=== PATIENT | male | born 1955 | race American Indian/Alaskan Native ===

== ENCOUNTER 2019-12-08 17:47 | Observation (INO) | payer MEDICARE ==
[2019-12-08] MEDS ORDERED: FAMOTIDINE 20 MG/2 ML INJ IV ONE (18:17)
[2019-12-08] MEDS ORDERED: PANTOPRAZOLE 40 MG INJ IV ONE (18:17)
[2019-12-08] MEDS ORDERED: ONDANSETRON 4 MG/2 ML INJ IV ONE (18:17)
[2019-12-08] MEDS ORDERED: SODIUM CHLORIDE 0.9% 1000 ML 1,000 ML IV ONE (18:17)
[2019-12-08 18:43] LABS: Basophils # (Auto) 0.1 K/mm3 (0.0-0.1); Basophils % (Auto) 0.5 % (0.0-1.8); Eosinophils % (Auto) 0.2 % (0.0-4.3); Hematocrit 33.4 % (35.5-45.6); Hemoglobin 10.3 gm/dl (11.8-15.2); Lymphocytes # (Auto) 0.9 K/mm3 (1.2-5.4); Lymphocytes % (Auto) 7.7 % (13.4-35.0); Mean Corpuscular HGB Conc 31 % (32-34); Mean Corpuscular Volume 81 fl (84-94); Monocytes # (Auto) 0.7 K/mm3 (0.0-0.8); Monocytes % (Auto) 6.5 % (0.0-7.3); Platelet Count 339 K/mm3 (140-440); Red Blood Count 4.12 M/mm3 (3.65-5.03); Red Cell Distribution Width 19.5 % (13.2-15.2)
[2019-12-08 18:52] LABS: INR 1.04 (0.87-1.13)
[2019-12-08 18:59] LABS: Alanine Aminotransferase 9 units/L (7-56); Albumin 3.5 g/dL (3.9-5); BUN/Creatinine Ratio 11; Blood Urea Nitrogen 9 mg/dL (9-20); Calcium 9.1 mg/dL (8.4-10.2); Hemolysis Index 10
[2019-12-08 19:01] LABS: Bilirubin,Direct < 0.2 mg/dL (0-0.2)
[2019-12-08] MEDS ORDERED: METOCLOPRAMIDE 10 MG/2 ML INJ IV ONE (19:13)
[2019-12-08] MEDS ORDERED: MORPHINE 2 MG/1 ML INJ IV ONE (19:53)
--- NOTE | 2019-12-08 20:00 | Emergency Department Report ---
ED GI Bleed HPI - General Chief complaint: Abdominal Pain Stated complaint: VOMIT Time Seen by Provider: 12/08/19 18:10 Source: patient Mode of arrival: Ambulatory Limitations: No Limitations - History of Present Illness Initial comments: Patient is a 64-year-old F Filipino male with a past medical history of lung cancer who is not undergoing any active treatment at this time who is presenting for the third time in 1 month for upper GI bleed. Patient was admitted on 11/24/2019 for gross hematemesis. Patient was scoped during this visit and was found to have erosive ulcerative esophagitis. Patient was on a Protonix drip and was discharged home. Patient again presented on 12/05/2019 for the same complaint. Patient was monitored and treated and discharged. Patient began this morning having nausea vomiting and on his arrival patient noted that he was vomiting blood again. Patient has had several episodes of active bloody emesis here in the emergency department. Is complaining of epigastric discomfort radiating discomfort into the chest. States is a burning sensation. He denies melena shortness of breath fevers chills cough or congestion at this time. complaint: coffee ground emesis - Related Data Home Medications Medication Instructions Recorded Confirmed Last Taken Aspirin [Aspirin BABY CHEW TAB] 81 mg PO QDAY 11/25/19 12/05/19 12/04/19 Gabapentin [Neurontin] 600 mg PO BID 11/25/19 12/05/19 12/04/19 Isosorbide Mononitrate 10 mg PO DAILY 11/25/19 12/05/19 12/04/19 Metoprolol [Lopressor TAB] 37.5 mg PO DAILY 11/25/19 12/05/19 12/04/19 Pantoprazole [Protonix TAB] 40 mg PO QDAY 11/25/19 12/05/19 12/04/19 Sennosides [Senna] 8.6 mg PO BID 11/25/19 12/05/19 Unknown hydrALAZINE [Apresoline TAB] 10 mg PO BID 11/25/19 12/05/19 12/04/19 Previous Rx's Medication Instructions Recorded Last Taken Type Zolpidem [Ambien] 10 mg PO QHS PRN #5 11/26/19 12/04/19 Rx Folic Acid [Folvite] 1 mg PO QDAY tablet 12/06/19 Unknown Rx Gabapentin 600 mg PO BID capsule 12/06/19 Unknown Rx Isosorbide Dinitrate [Isordil] 10 mg PO DAILY tablet 12/06/19 Unknown Rx LORazepam [Ativan] 2 mg PO Q1HR PRN tablet 12/06/19 Unknown Rx Multivitamin Tab [Multiple Vitamin 1 each PO QDAY tablet 12/06/19 Unknown Rx TAB (Theragran)] Sennosides Tab [Senokot] 8.6 mg PO BID tablet 12/06/19 Unknown Rx Thiamine [Vitamin B-1] 100 mg PO QDAY tablet 12/06/19 Unknown Rx Zolpidem [Ambien] 10 mg PO QHS PRN tablet 12/06/19 Unknown Rx Allergies Allergy/AdvReac Type Severity Reaction Status Date / Time No Known Allergies Allergy Verified 12/05/19 08:31 ED Review of Systems ROS: Stated complaint: VOMIT Other details as noted in HPI Comment: All other systems reviewed and negative ED Past Medical Hx - Past Medical History Previous Medical History?: Yes Hx Congestive Heart Failure: Yes Additional medical history: Lung cancer, GI bleed, peptic ulcer disease - Social History Smoking Status: Never Smoker Substance Use Type: None - Medications Home Medications: Home Medications Medication Instructions Recorded Confirmed Last Taken Type Aspirin [Aspirin BABY CHEW TAB] 81 mg PO QDAY 11/25/19 12/05/19 12/04/19 History Gabapentin [Neurontin] 600 mg PO BID 11/25/19 12/05/19 12/04/19 History Isosorbide Mononitrate 10 mg PO DAILY 11/25/19 12/05/19 12/04/19 History Metoprolol [Lopressor TAB] 37.5 mg PO DAILY 11/25/19 12/05/19 12/04/19 History Pantoprazole [Protonix TAB] 40 mg PO QDAY 11/25/19 12/05/19 12/04/19 History Sennosides [Senna] 8.6 mg PO BID 11/25/19 12/05/19 Unknown History hydrALAZINE [Apresoline TAB] 10 mg PO BID 11/25/19 12/05/19 12/04/19 History Zolpidem [Ambien] 10 mg PO QHS PRN #5 11/26/19 12/05/19 12/04/19 Rx Folic Acid [Folvite] 1 mg PO QDAY tablet 12/06/19 Unknown Rx Gabapentin 600 mg PO BID capsule 12/06/19 Unknown Rx Isosorbide Dinitrate [Isordil] 10 mg PO DAILY tablet 12/06/19 Unknown Rx LORazepam [Ativan] 2 mg PO Q1HR PRN tablet 12/06/19 Unknown Rx Multivitamin Tab [Multiple Vitamin 1 each PO QDAY tablet 12/06/19 Unknown Rx TAB (Theragran)] Sennosides Tab [Senokot] 8.6 mg PO BID tablet 12/06/19 Unknown Rx Thiamine [Vitamin B-1] 100 mg PO QDAY tablet 12/06/19 Unknown Rx Zolpidem [Ambien] 10 mg PO QHS PRN tablet 12/06/19 Unknown Rx ED Physical Exam - General Limitations: No Limitations General appearance: alert, in no apparent distress, in distress - Head Head exam: Present: atraumatic, normocephalic - Eye Eye exam: Present: normal appearance, PERRL, EOMI - ENT ENT exam: Present: mucous membranes moist - Neck Neck exam: Present: normal inspection - Respiratory Respiratory exam: Present: normal lung sounds bilaterally. Absent: respiratory distress, wheezes, rales, rhonchi - Cardiovascular Cardiovascular Exam: Present: regular rate, normal rhythm, normal heart sounds. Absent: systolic murmur, diastolic murmur, rubs, gallop - GI/Abdominal GI/Abdominal exam: Present: soft, tenderness, normal bowel sounds. Absent: distended, guarding, rebound, rigid - Rectal Rectal exam: Present: deferred - Extremities Exam Extremities exam: Present: normal inspection - Back Exam Back exam: Present: normal inspection - Neurological Exam Neurological exam: Present: alert, oriented X3 - Psychiatric Psychiatric exam: Present: normal affect, normal mood - Skin Skin exam: Present: warm, dry, intact, normal color. Absent: rash ED Course Vital Signs 12/08/19 12/08/19 12/08/19 17:50 17:54 17:59 Temperature 97.5 F L 97.5 F L Pulse Rate 105 H 116 H Respiratory 22 22 Rate Blood Pressure 164/109 164/109 Blood Pressure [Left] O2 Sat by Pulse 99 Oximetry 12/08/19 18:10 Temperature Pulse Rate 99 H Respiratory 21 Rate Blood Pressure Blood Pressure 157/105 [Left] O2 Sat by Pulse 97 Oximetry ED Medical Decision Making - Lab Data Result diagrams: 12/08/19 18:27 12/08/19 18:27 Lab Results 12/08/19 12/08/19 12/08/19 Range/Units 18:27 18:27 18:27 WBC 11.3 H (4.5-11.0) K/mm3 RBC 4.12 (3.65-5.03) M/mm3 Hgb 10.3 L (11.8-15.2) gm/dl Hct 33.4 L (35.5-45.6) % MCV 81 L (84-94) fl MCH 25 L (28-32) pg MCHC 31 L (32-34) % RDW 19.5 H (13.2-15.2) % Plt Count 339 (140-440) K/mm3 Lymph % (Auto) 7.7 L (13.4-35.0) % [place] % (Auto) 6.5 (0.0-7.3) % Eos % (Auto) 0.2 (0.0-4.3) % Baso % (Auto) 0.5 (0.0-1.8) % Lymph # 0.9 L (1.2-5.4) K/mm3 [place] # 0.7 (0.0-0.8) K/mm3 Eos # 0.0 (0.0-0.4) K/mm3 Baso # 0.1 (0.0-0.1) K/mm3 Seg Neutrophils % 85.1 H (40.0-70.0) % Seg Neutrophils # 9.6 H (1.8-7.7) K/mm3 PT 13.7 (12.2-14.9) Sec. INR 1.04 (0.87-1.13) Sodium 139 (137-145) mmol/L Potassium 3.4 L (3.6-5.0) mmol/L Chloride 99.5 (98-107) mmol/L Carbon Dioxide 23 (22-30) mmol/L Anion Gap 20 mmol/L BUN 9 (9-20) mg/dL Creatinine 0.8 (0.8-1.5) mg/dL Estimated GFR > 60 ml/min BUN/Creatinine Ratio 11 % Glucose 109 H (75-100) mg/dL Calcium 9.1 (8.4-10.2) mg/dL Total Bilirubin 0.50 (0.1-1.2) mg/dL Direct Bilirubin < 0.2 (0-0.2) mg/dL Indirect Bilirubin 0.3 mg/dL AST 20 (5-40) units/L ALT 9 (7-56) units/L Alkaline Phosphatase 96 (35-129) units/L Total Protein 7.8 (6.3-8.2) g/dL Albumin 3.5 L (3.9-5) g/dL Albumin/Globulin Ratio 0.8 % Lipase 12 L (13-60) units/L - Medical Decision Making Patient was given Zofran and Reglan and was continued to have episodes of bloody vomiting. Patient will be admitted to the hospitalist service for observation. I did speak with Dr. Calloway,with GI who states that they will see the patient but likely will not re-scope him Critical care attestation.: If time is entered above; I have spent that time in minutes in the direct care of this critically ill patient, excluding procedure time. ED Disposition Clinical Impression: Upper GI bleed Disposition: OP ADMIT IP TO THIS HOSP Is pt being admited?: Yes Does the pt Need Aspirin: No Condition: Stable Referrals: PRIMARY CARE, [Primary Care Provider] - 3-5 Days Time of Disposition: 20:00
--- NOTE | 2019-12-08 20:00 | History and Physical Report ---
History of Present Illness Chief complaint: i'm vomiting blood History of present illness: 64 YO Male with PUD and Ulcerative Esophagitis complicated by GI Bleeding, ETOH Dependence, Lung Cancer presents to ED for evaluation. Patient states that he has experienced multiple episodes "vomiting blood" today. Patient also reports that he had experienced nausea and multiple episodes of vomiting bright red blood. Patient transported to [facility] via private vehicle for further evaluation and care. Patient seen and evaluated in the emergency department. Patient experienced multiple episodes of hematemesis while in the emergency department. Lab and imaging studies reviewed. Patient found to have symptoms consistent w ith upper GI bleed. Patient admitted to [facility] for further evaluation and care due to increased risk for decompensation. GI consult placed in the emergency department. Patient initiated on PPI therapy, bowel rest, and supportive care, and IV fluid resuscitation therapy. Patient denies fever, chills, chest pain, palpitations, bright red blood per rectum, hematuria, ingestion of food/water from new or different sources, or known ill contacts. Advanced care planning conducted in the emergency department. Prior admission on 12/05/2019 reviewed. No medication listed at time of admission for reconciliation. Past History Past Medical History: other (See HPI) Past Surgical History: Other (Endoscopy) Social history: single. denies: smoking, alcohol abuse Family history: no significant family history (See HPI) Medications and Allergies Allergies Allergy/AdvReac Type Severity Reaction Status Date / Time No Known Allergies Allergy Verified 12/05/19 08:31 Home Medications Medication Instructions Recorded Confirmed Last Taken Type Aspirin [Aspirin BABY CHEW TAB] 81 mg PO QDAY 11/25/19 12/05/19 12/04/19 History Gabapentin [Neurontin] 600 mg PO BID 11/25/19 12/05/19 12/04/19 History Isosorbide Mononitrate 10 mg PO DAILY 11/25/19 12/05/19 12/04/19 History Metoprolol [Lopressor TAB] 37.5 mg PO DAILY 11/25/19 12/05/19 12/04/19 History Pantoprazole [Protonix TAB] 40 mg PO QDAY 11/25/19 12/05/19 12/04/19 History Sennosides [Senna] 8.6 mg PO BID 11/25/19 12/05/19 Unknown History hydrALAZINE [Apresoline TAB] 10 mg PO BID 11/25/19 12/05/19 12/04/19 History Zolpidem [Ambien] 10 mg PO QHS PRN #5 11/26/19 12/05/19 12/04/19 Rx Folic Acid [Folvite] 1 mg PO QDAY tablet 12/06/19 Unknown Rx Gabapentin 600 mg PO BID capsule 12/06/19 Unknown Rx Isosorbide Dinitrate [Isordil] 10 mg PO DAILY tablet 12/06/19 Unknown Rx LORazepam [Ativan] 2 mg PO Q1HR PRN tablet 12/06/19 Unknown Rx Multivitamin Tab [Multiple Vitamin 1 each PO QDAY tablet 12/06/19 Unknown Rx TAB (Theragran)] Sennosides Tab [Senokot] 8.6 mg PO BID tablet 12/06/19 Unknown Rx Thiamine [Vitamin B-1] 100 mg PO QDAY tablet 12/06/19 Unknown Rx Zolpidem [Ambien] 10 mg PO QHS PRN tablet 12/06/19 Unknown Rx Active Meds: Active Medications Pantoprazole Sodium 80 mg/ (Sodium Chloride) 100 mls @ 10 mls/hr IV DIRECT KENNETH Review of Systems Constitutional: other (Vomiting blood), no weight loss, no weight gain, no fever, no chills Ears, nose, mouth and throat: no ear pain, no ear discharge, no tinnitis, no decreased hearing, no nose pain Cardiovascular: no chest pain, no orthopnea, no palpitations, no rapid/irregular heart beat Respiratory: no cough, no cough with sputum Gastrointestinal: nausea, vomiting, hematemesis, no constipation, no BRBPR, no melena, no loss of appetite Genitourinary Male: no hematuria, no flank pain, no discharge, no urinary frequency, no urinary hesitancy Rectal: no pain, no incontinence, no bleeding Musculoskeletal: no neck stiffness, no neck pain, no shooting arm pain, no low back pain, no shooting leg pain, no leg numbness/tingling Integumentary: no rash, no pruritis, no redness, no sores, no wounds, no jaundice Neurological: no paralysis, no weakness, no parathesias, no numbness, no tingling Psychiatric: no anxiety, no memory loss, no change in sleep habits, no insomnia, no hypersomnia, no change in appetite Endocrine: no cold intolerance, no heat intolerance, no excessive thirst, no p olydipsia, no polyuria Hematologic/Lymphatic: no easy bruising, no easy bleeding, no lymphadenopathy, no lymphedema Allergic/Immunologic: no urticaria, no allergic rhinitis, no persistent infections, no anaphylaxis Exam - Constitutional Vitals: Temp Pulse Resp BP Pulse Ox 97.5 F L 99 H 21 157/105 97 12/08/19 17:54 12/08/19 18:10 12/08/19 18:10 12/08/19 18:10 12/08/19 18:10 General appearance: Present: mild distress - EENT Eyes: Present: PERRL ENT: hearing intact, clear oral mucosa - Neck Neck: Present: supple, normal ROM - Respiratory Respiratory effort: normal Respiratory: bilateral: CTA - Cardiovascular Heart Sounds: Present: S1 & S2. Absent: rub, click - Extremities Extremities: pulses symmetrical, No edema Peripheral Pulses: within normal limits - Abdominal General gastrointestinal: Present: soft, non-tender, non-distended, normal bowel sounds Male genitourinary: Present: normal - Integumentary Integumentary: Present: clear, warm, dry - Musculoskeletal Musculoskeletal: gait normal, strength equal bilaterally - Psychiatric Psychiatric: appropriate mood/affect, intact judgment & insight - Neurologic Neurologic: CNII-XII intact, moves all extremities Results - Labs CBC & Chem 7: 12/08/19 18:27 12/08/19 18:27 Labs: Abnormal lab results 12/08/19 12/08/19 Range/Units 18:27 18:27 WBC 11.3 H (4.5-11.0) K/mm3 Hgb 10.3 L (11.8-15.2) gm/dl Hct 33.4 L (35.5-45.6) % MCV 81 L (84-94) fl MCH 25 L (28-32) pg MCHC 31 L (32-34) % RDW 19.5 H (13.2-15.2) % Lymph % (Auto) 7.7 L (13.4-35.0) % Lymph # 0.9 L (1.2-5.4) K/mm3 Seg Neutrophils % 85.1 H (40.0-70.0) % Seg Neutrophils # 9.6 H (1.8-7.7) K/mm3 Potassium 3.4 L (3.6-5.0) mmol/L Glucose 109 H (75-100) mg/dL Albumin 3.5 L (3.9-5) g/dL Lipase 12 L (13-60) units/L Assessment and Plan - Patient Problems (1) Upper GI bleed Current Visit: Yes Status: Acute Plan to address problem: GI team consulted in ED, IV PPI therapy, CBC, repeat CBC in a.m., bowel rest, supportive care, repeat endoscopy as per gastroenterology team. Consider blood transfusion for decrease in hemoglobin greater than 2 g on successive CBC measurements. Hemoglobin stable no transfusion at this time. (2) Lung cancer Current Visit: No Status: Acute Qualifiers: Lung location: unspecified part of lung Plan to address problem: Chronic, supportive care. Outpatient oncology follow-up. (3) Alcohol dependence Current Visit: Yes Status: Acute Qualifiers: Complication of substance-induced condition: uncomplicated Plan to address problem: Thiamine, folic acid, multivitamin, CIWA protocol. (4) Advance care planning Current Visit: No Status: Acute Plan to address problem: Patient is full code, disease education conducted, patient knowledges understanding and agreement with care plan. +30 minutes. (5) DVT prophylaxis Current Visit: No Status: Acute Plan to address problem: SCD to bilateral lower extremities while in bed, hold anticoagulation due to active GI bleed.
[2019-12-08] MEDS ORDERED: LORazepam 2 MG/ML VIAL IV PRN (20:14)
[2019-12-08] MEDS ORDERED: METOCLOPRAMIDE 10 MG/2 ML INJ ONE (20:26)
[2019-12-08] MEDS ORDERED: MORPHINE 2 MG/1 ML INJ ONE (20:26)
[2019-12-08] MEDS ORDERED: THIAMINE 100 MG TAB PO ONE (20:30)
[2019-12-08] MEDS ORDERED: MULTIVITAMINS ,THERAPEUTIC TAB PO ONE (20:30)
[2019-12-08] MEDS: PANTOPRAZOLE 80 MG in SODIUM CHLORIDE 0.9% 100 ML IV SCH (20:30)
[2019-12-08] MEDS ORDERED: THIAMINE 100 MG TAB ONE (21:47)
[2019-12-08] MEDS ORDERED: LORazepam 2 MG/ML VIAL ONE (23:43)
[2019-12-09 03:42] LABS: Basophils # (Auto) 0.1 K/mm3 (0.0-0.1); Basophils % (Auto) 0.6 % (0.0-1.8); Eosinophils % (Auto) 0.3 % (0.0-4.3); Hematocrit 34.1 % (35.5-45.6); Hemoglobin 10.5 gm/dl (11.8-15.2); Lymphocytes # (Auto) 1.3 K/mm3 (1.2-5.4); Lymphocytes % (Auto) 11.2 % (13.4-35.0); Mean Corpuscular HGB Conc 31 % (32-34); Mean Corpuscular Volume 83 fl (84-94); Monocytes # (Auto) 1.2 K/mm3 (0.0-0.8); Monocytes % (Auto) 10.4 % (0.0-7.3); Platelet Count 356 K/mm3 (140-440); Red Blood Count 4.14 M/mm3 (3.65-5.03); Red Cell Distribution Width 19.7 % (13.2-15.2)
[2019-12-09] MEDS: PANTOPRAZOLE 80 MG in SODIUM CHLORIDE 0.9% 100 ML IV SCH (08:29)
[2019-12-09 09:07] VITALS: BP 144/96
[2019-12-09] MEDS ORDERED: FOLIC ACID 1 MG TAB PO SCH (10:00)
--- NOTE | 2019-12-09 10:16 | Progress Note ---
Subjective Date of service: 12/09/19 Principal diagnosis: Upper GI bleed Interval history: 64-year-old male with a history of peptic ulcer disease esophagitis EtOH abuse lung cancer presents with multiple episodes of vomiting blood. Patient describes large amount approximately a cup. Of bright red blood. Epigastric abdominal discomfort and fullness. Patient recent admission EGD found to have peptic ulcer disease and esophagitis. Objective - Constitutional Vitals: Vital Signs - 12hr 12/08/19 12/08/19 12/08/19 22:16 22:30 22:46 Pulse Rate 106 H 100 H 110 H Respiratory 12 23 25 H Rate Blood Pressure 153/100 159/106 159/106 O2 Sat by Pulse 94 99 96 Oximetry 12/08/19 12/08/19 12/08/19 23:00 23:16 23:30 Pulse Rate 108 H 114 H 106 H Respiratory 19 26 H 14 Rate Blood Pressure 149/104 149/104 146/97 O2 Sat by Pulse 93 Oximetry 12/08/19 12/09/19 12/09/19 23:34 00:00 00:30 Pulse Rate 111 H 109 H 102 H Respiratory 20 17 24 Rate Blood Pressure 146/97 138/90 154/89 O2 Sat by Pulse 89 100 Oximetry 12/09/19 12/09/19 12/09/19 01:00 01:30 02:00 Pulse Rate 106 H 102 H 116 H Respiratory 19 26 H 22 Rate Blood Pressure 148/81 154/97 154/97 O2 Sat by Pulse 99 96 97 Oximetry 12/09/19 12/09/19 12/09/19 02:30 03:00 03:30 Pulse Rate 106 H Respiratory 22 Rate Blood Pressure 150/101 136/102 138/69 O2 Sat by Pulse 97 96 64 L Oximetry 12/09/19 12/09/19 12/09/19 04:00 04:30 05:00 Pulse Rate Respiratory Rate Blood Pressure 138/69 128/80 136/87 O2 Sat by Pulse 96 97 97 Oximetry 12/09/19 12/09/19 12/09/19 05:30 06:00 06:30 Pulse Rate Respiratory Rate Blood Pressure 126/74 134/88 120/93 O2 Sat by Pulse 90 96 97 Oximetry 12/09/19 12/09/19 12/09/19 07:00 07:30 08:00 Pulse Rate 105 H Respiratory 19 Rate Blood Pressure 120/93 132/84 139/86 O2 Sat by Pulse 96 99 97 Oximetry 12/09/19 12/09/19 08:30 09:00 Pulse Rate 101 H 105 H Respiratory 21 17 Rate Blood Pressure 127/71 144/96 O2 Sat by Pulse 97 Oximetry - Labs CBC & Chem 7: 12/09/19 03:08 12/08/19 18:27 Labs: Abnormal lab results 12/08/19 12/08/19 12/09/19 Range/Units 18:27 18:27 03:08 WBC 11.3 H 11.9 H (4.5-11.0) K/mm3 Hgb 10.3 L 10.5 L (11.8-15.2) gm/dl Hct 33.4 L 34.1 L (35.5-45.6) % MCV 81 L 83 L (84-94) fl MCH 25 L 25 L (28-32) pg MCHC 31 L 31 L (32-34) % RDW 19.5 H 19.7 H (13.2-15.2) % Lymph % (Auto) 7.7 L 11.2 L (13.4-35.0) % [place] % (Auto) 10.4 H (0.0-7.3) % Lymph # 0.9 L (1.2-5.4) K/mm3 [place] # 1.2 H (0.0-0.8) K/mm3 Seg Neutrophils % 85.1 H 77.5 H (40.0-70.0) % Seg Neutrophils # 9.6 H 9.2 H (1.8-7.7) K/mm3 Potassium 3.4 L (3.6-5.0) mmol/L Glucose 109 H (75-100) mg/dL Albumin 3.5 L (3.9-5) g/dL Lipase 12 L (13-60) units/L
--- NOTE | 2019-12-09 10:54 | Gastroenterology Consultation ---
History of Present Illness - Reason for Consult Consult date: 12/09/19 Hematemesis Requesting physician: OPAL DAMIAN - History of Present Illness The patient is seen for the third time in the past month for recurrent hematemesis. He has severe erosive esophagitis (see EGD by Dr Duke) but biopsies were negative for cancer. However, the patient has a hx of lung cancer 5 years ago (chemo/rads only, no surgery per patient) and now has recurrent disease. The CT scan here in the last month shows recurrent pleural plaques x 3, and also a new liver mets (likely). He says his Oncologist at the [place] told him there were "three new spots of cancer" but he has been unable to arrange a biopsy yet. He did well last admit without N/V/abdominal pain after admission with IV fluids and IV protonix, but 3 days later he presents with recurrent hematemesis. He denies severe dysphagia, but is altering his diet to soft. He has no melena, and his hct is stable (based on prior labs). He has no CP but does have chronic WHITE. Since this morning he has had no N/V, and wants to eat. He denies non-compliance with medication and EtOH (though there are prior progress notes that state "EtOH abuse." Past History Past Medical History: cancer (Hx of lung CA (5 years ago) with new/recurrent diffuse disease on CT scan), hypertension Past Surgical History: Other Social history: single, alcohol abuse. denies: smoking Family history: CAD Medications and Allergies Allergies Allergy/AdvReac Type Severity Reaction Status Date / Time No Known Allergies Allergy Verified 12/05/19 08:31 Home Medications Medication Instructions Recorded Confirmed Last Taken Type Aspirin [Aspirin BABY CHEW TAB] 81 mg PO QDAY 11/25/19 12/05/19 12/04/19 History Gabapentin [Neurontin] 600 mg PO BID 11/25/19 12/05/19 12/04/19 History Isosorbide Mononitrate 10 mg PO DAILY 11/25/19 12/05/19 12/04/19 History Metoprolol [Lopressor TAB] 37.5 mg PO DAILY 11/25/19 12/05/19 12/04/19 History Pantoprazole [Protonix TAB] 40 mg PO QDAY 11/25/19 12/05/19 12/04/19 History Sennosides [Senna] 8.6 mg PO BID 11/25/19 12/05/19 Unknown History hydrALAZINE [Apresoline TAB] 10 mg PO BID 11/25/19 12/05/19 12/04/19 History Zolpidem [Ambien] 10 mg PO QHS PRN #5 11/26/19 12/05/19 12/04/19 Rx Folic Acid [Folvite] 1 mg PO QDAY tablet 12/06/19 Unknown Rx Gabapentin 600 mg PO BID capsule 12/06/19 Unknown Rx Isosorbide Dinitrate [Isordil] 10 mg PO DAILY tablet 12/06/19 Unknown Rx LORazepam [Ativan] 2 mg PO Q1HR PRN tablet 12/06/19 Unknown Rx Multivitamin Tab [Multiple Vitamin 1 each PO QDAY tablet 12/06/19 Unknown Rx TAB (Theragran)] Sennosides Tab [Senokot] 8.6 mg PO BID tablet 12/06/19 Unknown Rx Thiamine [Vitamin B-1] 100 mg PO QDAY tablet 12/06/19 Unknown Rx Zolpidem [Ambien] 10 mg PO QHS PRN tablet 12/06/19 Unknown Rx Active Meds: Active Medications Folic Acid (Folvite) 1 mg PO QDAY KENNETH Lorazepam (Ativan) 2 mg IV Q1H PRN PRN Reason: MALISSA-Ziyad 04-04 Last Admin: 12/09/19 02:13 Dose: 2 mg Documented by: Pantoprazole Sodium (Protonix) 40 mg PO QDAY KENNETH Sodium Chloride (Sodium Chloride Flush Syringe 10 Ml) 10 ml IV BID KENNETH Last Admin: 12/08/19 21:40 Dose: 10 ml Documented by: Sodium Chloride (Sodium Chloride Flush Syringe 10 Ml) 10 ml IV PRN PRN PRN Reason: LINE FLUSH I HAVE REVIEWED AND RECONCILED MEDICATIONS Review of Systems - Review of Systems All systems: negative (as noted in the HPI.) Exam - Constitutional Vital Signs: Temp Pulse Resp BP Pulse Ox 97.5 F L 105 H 17 144/96 97 12/08/19 17:54 12/09/19 09:00 12/09/19 09:00 12/09/19 09:00 12/09/19 09:00 General appearance: no acute distress - EENT Eyes: PERRL, EOM intact ENT: hearing intact, clear oral mucosa, no thrush, no ulcerations - Neck Neck: supple, normal ROM - Respiratory Respiratory effort: normal Respiratory: bilateral: CTA - Cardiovascular Rhythm: regular Heart Sounds: Present: S1 & S2 Extremities: no ischemia, No edema - Gastrointestinal General gastrointestinal: Present: soft, non-tender, non-distended - Integumentary Integumentary: Present: clear, warm, dry - Neurologic Neurological: alert and oriented x3 - Labs CBC & Chem 7: 12/09/19 03:08 12/08/19 18:27 Lab Results: Laboratory Results - last 24 hr 12/08/19 12/08/19 12/08/19 18:27 18:27 18:27 WBC 11.3 H RBC 4.12 Hgb 10.3 L Hct 33.4 L MCV 81 L MCH 25 L MCHC 31 L RDW 19.5 H Plt Count 339 Lymph % (Auto) 7.7 L [place] % (Auto) 6.5 Eos % (Auto) 0.2 Baso % (Auto) 0.5 Lymph # 0.9 L [place] # 0.7 Eos # 0.0 Baso # 0.1 Seg Neutrophils % 85.1 H Seg Neutrophils # 9.6 H PT 13.7 INR 1.04 Sodium 139 Potassium 3.4 L Chloride 99.5 Carbon Dioxide 23 Anion Gap 20 BUN 9 Creatinine 0.8 Estimated GFR > 60 BUN/Creatinine Ratio 11 Glucose 109 H Calcium 9.1 Total Bilirubin 0.50 Direct Bilirubin < 0.2 Indirect Bilirubin 0.3 AST 20 ALT 9 Alkaline Phosphatase 96 Total Protein 7.8 Albumin 3.5 L Albumin/Globulin Ratio 0.8 Lipase 12 L 12/09/19 03:08 WBC 11.9 H RBC 4.14 Hgb 10.5 L Hct 34.1 L MCV 83 L MCH 25 L MCHC 31 L RDW 19.7 H Plt Count 356 Lymph % (Auto) 11.2 L [place] % (Auto) 10.4 H Eos % (Auto) 0.3 Baso % (Auto) 0.6 Lymph # 1.3 [place] # 1.2 H Eos # 0.0 Baso # 0.1 Seg Neutrophils % 77.5 H Seg Neutrophils # 9.2 H PT INR Sodium Potassium Chloride Carbon Dioxide Anion Gap BUN Creatinine Estimated GFR BUN/Creatinine Ratio Glucose Calcium Total Bilirubin Direct Bilirubin Indirect Bilirubin AST ALT Alkaline Phosphatase Total Protein Albumin Albumin/Globulin Ratio Lipase Assessment and Plan - Patient Problems (1) Ulcerative esophagitis Current Visit: Yes Status: Acute Plan to address problem: - Severe ulcerative esophagitis (bx 11/2019 negative CA) with recurrent he matemesis. - Patient needs to be on a chronic mechanical soft diet. - Patient needs endoscopic ultrasound at the [facility] (not offered here) to evaluate underlying mucosa. - No acute need for EGD at present as hct stable and N/V have resolved (?EtOH related; patient not forthcoming about history). - Will advance diet and place on PO protonix. - OK to d/c home with f/u at Oncology Clinic [facility] on discharge. (2) Lung cancer Current Visit: No Status: Acute Qualifiers: Lung location: unspecified part of lung Plan to address problem: - Per patient, chemo/rads 5 years ago. - New diffuse recurrence (lungs, but also ?liver and ?esophagus); he follows with Oncology at [facility].
[2019-12-09] MEDS ORDERED: PANTOPRAZOLE 40 MG TAB PO SCH (11:00)
[2019-12-09] MEDS ORDERED: FOLIC ACID 1 MG TAB ONE (12:53)
[2019-12-09] MEDS ORDERED: PANTOPRAZOLE 40 MG TAB PO ONE (12:53)
--- NOTE | 2019-12-09 14:00 | Discharge Summary ---
Providers - Providers Date of Admission: 12/08/19 20:02 Date of discharge: 12/09/19 Attending physician: JERARDO TEJEDA 12/08/19 20:00 Consult to Physician [CONS] Urgent Comment: Consulting Provider: VINCENT ARROYO Physician Instructions: Reason For Exam: active GI bleed Primary care physician: BETSEY GARCIA MD Hospitalization Condition: Stable Hospital course: 64-year-old male presents with hemoptysis. Patient just had EGD which showed peptic ulcer disease and esophagitis. Evaluation by gastro did not have any plans to re-scope patient. This is been worked up just last month and it was determined that patient need to go to the [place] to have biopsies done and have lung mass evaluated. Seems to be more hemoptysis as opposed to hematemesis. Patient understands this. We will go to the [place]. Disposition: - TO HOME OR SELFCARE - Discharge Diagnoses (1) Hemoptysis Status: Acute Comment: Secondary to lung cancer. Scheduled to go to the [place] for further biopsy and further work-up. (2) Alcohol dependence Status: Acute Qualifiers: Complication of substance-induced condition: uncomplicated Comment: Alcohol cessation Alcoholics Anonymous. Are discussed. Patient states he does not drink like he used to. Informed he cannot drink at all. (3) Ulcerative esophagitis Status: Acute Comment: We will start patient on Protonix 40 mg Zofran for as needed nausea. (4) Upper GI bleed Status: Acute (5) Lung cancer Status: Acute Qualifiers: Lung location: unspecified part of lung Comment: Proceed with outpatient work-up for lung cancer as were doing. (6) CAD (coronary artery disease) Status: Chronic Qualifiers: Coronary Disease-Associated Artery/Lesion type: [place] artery [place] vs. transplanted heart: [place] heart Comment: Patient chest pain-free on long-acting nitroglycerin. (7) Hypertension Status: Chronic Qualifiers: Hypertension type: essential hypertension Qualified Code(s): I10 - Essential (primary) hypertension Comment: Patient has fair control with current antihypertensives. Will hold blood pressure has been low but now is stabilized. Core Measure Documentation - Palliative Care Palliative Care/ Comfort Measures: Not Applicable - Core Measures Any of the following diagnoses?: none Exam - Constitutional Vitals: Temp Pulse Resp BP Pulse Ox 97.5 F L 105 H 17 144/96 97 12/08/19 17:54 12/09/19 09:00 04/20/20 09:00 12/09/19 09:00 12/09/19 09:00 General appearance: Present: no acute distress, well-nourished - EENT Eyes: Present: PERRL ENT: hearing intact, clear oral mucosa - Neck Neck: Present: supple, normal ROM - Respiratory Respiratory effort: normal Respiratory: bilateral: CTA - Cardiovascular Heart Sounds: Present: S1 & S2. Absent: rub, click - Extremities Extremities: pulses symmetrical, No edema Peripheral Pulses: within normal limits - Abdominal General gastrointestinal: Present: soft, non-tender, non-distended, normal bowel sounds Male genitourinary: Present: normal - Integumentary Integumentary: Present: clear, warm, dry - Musculoskeletal Musculoskeletal: gait normal, strength equal bilaterally - Psychiatric Psychiatric: appropriate mood/affect, intact judgment & insight - Neurologic Neurologic: CNII-XII intact, moves all extremities Plan Activity: no restrictions, other Weight Bearing Status: Full Weight Bearing Diet: low cholesterol Follow up with: PRIMARY CARE, [Referring] - 3-5 Days Prescriptions: Zolpidem [Ambien] 10 mg PO QHS PRN #30 tablet PRN Reason: Insomnia Zolpidem [Ambien] 10 mg PO QHS #30 tab Pantoprazole [Protonix] 40 mg PO QDAY #30 tablet Pantoprazole [Protonix TAB] 40 mg PO QDAY #30 Ondansetron (Nf) [Zofran TAB] 8 mg PO Q8HR PRN 14 Days #20 tablet PRN Reason: Nausea
== END 2019-12-09 15:20 | disposition home or self-care (01) ==
LOC: ED 17:47 → IMCU 20:02
PROVIDERS: ADMIT Internal Medicine; ATTEND Internal Medicine
DX: K92.2 Gastrointestinal hemorrhage, unspecified (principal); R11.2 Nausea with vomiting, unspecified; C34.90 Malignant neoplasm of unspecified part of unspecified bronchus or lung; F10.20 Alcohol dependence, uncomplicated; K22.10 Ulcer of esophagus without bleeding; I25.10 Atherosclerotic heart disease of native coronary artery without angina pectoris; I11.0 Hypertensive heart disease with heart failure; I50.9 Heart failure, unspecified; Z87.11 Personal history of peptic ulcer disease; Z79.82 Long term (current) use of aspirin; Z79.899 Other long term (current) drug therapy
CPT/HCPCS: 36415; 80048; 80076; 83690; 85025; 85610; 96361; 96365; 96366; 96375; 96376; 99284; C9113; G0378; J2060; J2270; J2405; J2765; J7030

== ENCOUNTER 2019-12-15 10:00 | Emergency (ER) | payer MEDICARE ==
--- NOTE | 2019-12-15 10:24 | Emergency Department Report ---
ED General Adult HPI - General Chief complaint: Nausea/Vomiting/Diarrhea Stated complaint: N/V/DIZZY Time Seen by Provider: 12/15/19 10:22 Source: patient Mode of arrival: Ambulatory Limitations: No Limitations - History of Present Illness Initial comments: This is a 64-year-old gentleman who is been admitted to this facility 3 times in November. He gets his primary care at the [facility]. He [facility]. He states he has a biopsy pending there. He has a history of metastatic lung cancer which is diffusely spread probably to the liver as well as the esophagus and encasing sample of his great vessels. He has a history of recurrent GI bleeding. He states his last transfusion was over a year ago. Patient states that he was nauseated today despite taking his ondansetron. He states that sometimes he vomits and sees pink material but has not had any clots or substantial hematemesis. He states he has not had a stool lately and definitely no melena or black stools. He states he ran out of his sleeping pills. He has chronic back pain. When asked if he has any additional pain oth er than chronic he states that his neck is mildly uncomfortable for the past few days. This is not a presenting complaint at all. He does not complain of chest or abdominal pain. He is not actively nauseated at the time of my encounter. He denies fever or chills. He appears relatively comfortable. Last Discharge Summary 12/08/19: Hospitalization Condition: Stable Hospital course: 64-year-old male presents with hemoptysis. Patient just had EGD which showed peptic ulcer disease and esophagitis. Evaluation by gastro did not have any plans to re-scope patient. This is been worked up just last month and it was determined that [facility] and have [facility] mass evaluated. Seems to be more hemoptysis as opposed to hematemesis. Patient understands this. [facility]. Disposition: DC-01 TO HOME OR SELFCARE - Discharge Diagnoses (1) Hemoptysis Status: Acute Comment: Secondary to lung cancer. Scheduled to go to the [facility] for further biopsy and further work-up. (2) Alcohol dependence Status: Acute Qualifiers: Complication of substance-induced condition: uncomplicated Comment: Alcohol cessation Alcoholics Anonymous. Are discussed. Patient states he does not drink like he used to. Informed he cannot drink at all. (3) Ulcerative esophagitis Status: Acute Comment: We will start patient on Protonix 40 mg Zofran for as needed nausea. (4) Upper GI bleed Status: Acute (5) Lung cancer Status: Acute Qualifiers: Lung location: unspecified part of lung Comment: Proceed with outpatient work-up for lung cancer as were doing. (6) CAD (coronary artery disease) Status: Chronic Qualifiers: Coronary Disease-Associated Artery/Lesion type: [place] artery [place] vs. transplanted heart: [place] heart Comment: Patient chest pain-free on long-acting nitroglycerin. (7) Hypertension Status: Chronic Qualifiers: Hypertension type: essential hypertension Qualified Code(s): I10 - Essential (primary) hypertension Comment: Patient has fair control with current antihypertensives. Will hold blood pressure has been low but now is stabilized. Per GI Consult last admission: Plan to address problem: - Severe ulcerative esophagitis (bx 11/2019 negative CA) with recurrent hematemesis. - Patient needs to be on a chronic mechanical soft diet. - Patient needs endoscopic ultrasound at the [facility] (not offered here) to evaluate underlying mucosa. - No acute need for EGD at present as hct stable and N/V have resolved (?EtOH related; patient not forthcoming about history). - Will advance diet and place on PO protonix. - OK to d/c home with f/u at [facility] on discharge. Last CT of the chest findings: MEDIASTINUM and KVNG: There is impressive circumferential thickening of the mid to distal esophagus. The distal esophageal wall measures up to 1.1 cm in thickness. There is no discrete mass or pneumomediastinum. Moderate inflammatory fat stranding surrounds the esophagus. The visualized stomach is unremarkable. An enlarged AP window lymph node measures up to 2.4 cm in long axis. There are subcentimeter periesophageal lymph nodes but no additional adenopathy. LUNGS: At least 3 pleural masses are identified in the left lung. A 5.4 cm mass is identified at the level of the aortic arch. 3.7 cm mass is identified at the level of the pulmonary outflow tract. A 3.8 cm mass is identified adjacent to the lingula. There is small left pleural fluid layering posteriorly. These masses appear to be pleural and not within the lung parenchyma. Much of the left lung is compressed but no definite pulmonary nodule. The right lung is clear and without abnormality. SKELETAL SYSTEM: Mild thoracic spondylosis. No suspicious bony lesion is detected. UPPER ABDOMEN: There is an ill-defined 2.8 cm slightly hypodense lesion in the posterior right hepatic lobe which is incompletely imaged. This could represent a hemangioma or neoplastic mass. 1.5 cm cyst is noted in the left hepatic lobe. There is a 3.4 cm hypodense lesion in the posterior spleen as well which is incompletely characterized but probably represents a splenic hemangioma. ADDITIONAL FINDINGS: None. IMPRESSION: Severe esophagitis. Infiltrating neoplasm in the distal esophagus cannot be excluded. There are multiple left pleural masses and small left pleural effusion as described. Enlarged AP window lymph node. Questionable liver and splenic lesions which may represent hemangiomas. If further evaluation of the abdomen is needed, [address] is recommended. -: Gradual, days(s) Location: neck (Some mild neck pain, chronic back pain) Quality: aching Consistency: intermittent, now resolved Improves with: none Worsens with: none Associated Symptoms: denies other symptoms, other (As above) Treatments Prior to Arrival: none - Related Data Home Medications Medication Instructions Recorded Confirmed Last Taken Gabapentin [Neurontin] 600 mg PO TID 11/25/19 12/09/19 12/07/19 Isosorbide Mononitrate 10 mg PO DAILY 11/25/19 12/09/19 12/07/19 Metoprolol [Lopressor TAB] 37.5 mg PO DAILY 11/25/19 12/09/19 12/07/19 hydrALAZINE [Apresoline TAB] 10 mg PO BID 11/25/19 12/09/19 12/08/19 Previous Rx's Medication Instructions Recorded Last Taken Type Thiamine [Vitamin B-1] 100 mg PO QDAY tablet 12/06/19 12/07/19 Rx Pantoprazole [Protonix TAB] 40 mg PO QDAY #30 12/09/19 Unknown Rx Zolpidem [Ambien] 10 mg PO QHS #30 tab 12/09/19 Unknown Rx Zolpidem [Ambien] 10 mg PO QHS PRN #30 tablet 12/09/19 Unknown Rx Ondansetron (Nf) [Zofran TAB] 8 mg PO Q8HR PRN 14 Days #20 tablet 12/15/19 Unknown Rx Pantoprazole [Protonix TAB] 40 mg PO QDAY #30 tablet 12/15/19 Unknown Rx Allergies Allergy/AdvReac Type Severity Reaction Status Date / Time No Known Allergies Allergy Verified 12/05/19 08:31 ED Review of Systems ROS: Stated complaint: N/V/DIZZY Other details as noted in HPI Constitutional: denies: chills, fever Eyes: denies: eye pain, eye discharge, vision change ENT: denies: ear pain, throat pain Respiratory: denies: cough, shortness of breath, wheezing Cardiovascular: denies: chest pain, palpitations Endocrine: no symptoms reported Gastrointestinal: nausea, vomiting, hematemesis (As described). denies: abdominal pain, diarrhea, melena, hematochezia Genitourinary: denies: urgency, dysuria Musculoskeletal: denies: back pain, joint swelling, arthralgia Skin: denies: rash, lesions Neurological: denies: headache, weakness, paresthesias Psychiatric: denies: anxiety, depression Hematological/Lymphatic: denies: easy bleeding, easy bruising ED Past Medical Hx - Past Medical History Previous Medical History?: Yes Hx Congestive Heart Failure: Yes Additional medical history: Lung cancer, GI bleed, peptic ulcer disease - Surgical History Past Surgical History?: Yes Additional Surgical History: Left Lung biopsy - Social History Smoking Status: Former Smoker Substance Use Type: Alcohol, Prescribed - Medications Home Medications: Home Medications Medication Instructions Recorded Confirmed Last Taken Type Gabapentin [Neurontin] 600 mg PO TID 11/25/19 12/09/19 12/07/19 History Isosorbide Mononitrate 10 mg PO DAILY 11/25/19 12/09/19 12/07/19 History Metoprolol [Lopressor TAB] 37.5 mg PO DAILY 11/25/19 12/09/19 12/07/19 History hydrALAZINE [Apresoline TAB] 10 mg PO BID 11/25/19 12/09/19 12/08/19 History Thiamine [Vitamin B-1] 100 mg PO QDAY tablet 12/06/19 12/09/19 12/07/19 Rx Pantoprazole [Protonix TAB] 40 mg PO QDAY #30 12/09/19 Unknown Rx Zolpidem [Ambien] 10 mg PO QHS #30 tab 12/09/19 Unknown Rx Zolpidem [Ambien] 10 mg PO QHS PRN #30 tablet 12/09/19 Unknown Rx Ondansetron (Nf) [Zofran TAB] 8 mg PO Q8HR PRN 14 Days #20 tablet 12/15/19 Unknown Rx Pantoprazole [Protonix TAB] 40 mg PO QDAY #30 tablet 12/15/19 Unknown Rx ED Physical Exam - General Limitations: No Limitations General appearance: alert, in no apparent distress - Head Head exam: Present: atraumatic, normocephalic - Eye Eye exam: Present: normal appearance. Absent: scleral icterus - ENT ENT exam: Present: mucous membranes moist - Neck Neck exam: Present: normal inspection, lymphadenopathy. Absent: tenderness, meningismus - Respiratory Respiratory exam: Present: normal lung sounds bilaterally. Absent: respiratory distress - Cardiovascular Cardiovascular Exam: Present: regular rate, normal rhythm. Absent: systolic murmur, diastolic murmur, rubs, gallop - GI/Abdominal GI/Abdominal exam: Present: soft, normal bowel sounds. Absent: distended, tenderness, guarding, rebound - Rectal Rectal exam: Present: deferred - Extremities Exam Extremities exam: Present: normal inspection. Absent: pedal edema, calf tenderness - Back Exam Back exam: Present: normal inspection - Neurological Exam Neurological exam: Present: alert, oriented X3, CN II-XII intact. Absent: motor sensory deficit - Psychiatric Psychiatric exam: Present: normal affect, normal mood - Skin Skin exam: Present: warm, dry, intact, normal color. Absent: rash ED Course Vital Signs 12/15/19 12/15/19 12/15/19 10:04 10:54 11:00 Temperature 98 F Pulse Rate 129 H 111 H 109 H Respiratory 20 13 12 Rate Blood Pressure 141/88 109/67 O2 Sat by Pulse 99 96 Oximetry - Reevaluation(s) Reevaluation #1: No vomiting, no nausea, mildly tachycardic. Will finish fluid bolus. Patient is appropriate for outpatient management and follow-up at the [facility]. I will also give him information concerning [facility]. 12/15/19 11:55 Reevaluation #2: Patient's lactic acid level was reported to be 2.6. It was 4.7 on prior hospitalization. There was no apparent infection found. I am going to complete the patient's liter of fluid and repeat his lactic elastase level. If it is normal being that there is no indication of a focus of infection, I believe he can be safely discharged. I will get a set of blood cultures as well. 12/15/19 12:09 Reevaluation #3: Lactic acid level now normal. Patient is appropriate for outpatient disposition. 12/15/19 14:20 ED Medical Decision Making - Lab Data Result diagrams: 12/15/19 10:18 12/15/19 10:18 Laboratory Results - last 24 hr 12/15/19 12/15/19 12/15/19 10:18 10:18 10:37 WBC 7.1 RBC 4.79 Hgb 12.1 Hct 38.8 MCV 81 L MCH 25 L MCHC 31 L RDW 19.4 H Plt Count 510 H Lymph % (Auto) 19.4 Wise % (Auto) 7.1 Eos % (Auto) 1.3 Baso % (Auto) Mechanical Meter Tester Lymph # 1.4 Wise # 0.5 Eos # 0.1 Baso # 0.1 Seg Neutrophils % 71.1 H Seg Neutrophils # 5.1 PT INR APTT Sodium 137 Potassium 4.5 Chloride 99.1 Carbon Dioxide 22 Anion Gap 20 BUN 7 L Creatinine 0.7 L Estimated GFR > 60 BUN/Creatinine Ratio 10 Glucose 86 Calcium 9.9 Magnesium Total Bilirubin Direct Bilirubin Indirect Bilirubin AST ALT Alkaline Phosphatase Troponin T NT-Pro-B Natriuret Pep Total Protein Albumin Albumin/Globulin Ratio Lipase Plasma/Serum Alcohol < 0.01 12/15/19 12/15/19 12/15/19 10:37 10:37 10:37 WBC RBC Hgb Hct MCV MCH MCHC RDW Plt Count Lymph % (Auto) Wise % (Auto) Eos % (Auto) Baso % (Auto) Lymph # Wise # Eos # Baso # Seg Neutrophils % Seg Neutrophils # PT 13.7 INR 1.04 APTT 32.6 Sodium Potassium Chloride Carbon Dioxide Anion Gap BUN Creatinine Estimated GFR BUN/Creatinine Ratio Glucose Calcium Magnesium 1.80 Total Bilirubin 0.40 Direct Bilirubin < 0.2 Indirect Bilirubin 0.2 AST 23 ALT 9 Alkaline Phosphatase 96 Troponin T < 0.010 NT-Pro-B Natriuret Pep 185.8 Total Protein 8.0 Albumin 4.1 Albumin/Globulin Ratio 1.1 Lipase 17 Plasma/Serum Alcohol Laboratory Results - last 24 hr 12/15/19 12/15/19 12/15/19 10:18 10:18 10:37 WBC 7.1 RBC 4.79 Hgb 12.1 Hct 38.8 MCV 81 L MCH 25 L MCHC 31 L RDW 19.4 H Plt Count 510 H Lymph % (Auto) 19.4 Wise % (Auto) 7.1 Eos % (Auto) 1.3 Baso % (Auto) Mechanical Meter Tester Lymph # 1.4 Wise # 0.5 Eos # 0.1 Baso # 0.1 Add Manual Diff Complete Total Counted 100 Seg Neutrophils % 71.1 H Seg Neuts % (Manual) 77.0 H Band Neutrophils % 0 Lymphocytes % (Manual) 17.0 Reactive Lymphs % (Man) 0 Monocytes % (Manual) 5.0 Eosinophils % (Manual) 1.0 Basophils % (Manual) 0 Metamyelocytes % 0 Myelocytes % 0 Promyelocytes % 0 Blast Cells % 0 Nucleated RBC % Not Reportable Seg Neutrophils # 5.1 Seg Neutrophils # Man 5.5 Band Neutrophils # 0.0 Lymphocytes # (Manual) 1.2 Abs React Lymphs (Man) 0.0 Monocytes # (Manual) 0.4 Eosinophils # (Manual) 0.1 Basophils # (Manual) 0.0 Metamyelocytes # 0.0 Myelocytes # 0.0 Promyelocytes # 0.0 Blast Cells # 0.0 WBC Morphology Not Reportable Hypersegmented Neuts Not Reportable Hyposegmented Neuts Not Reportable Hypogranular Neuts Not Reportable Smudge Cells Not Reportable Toxic Granulation Not Reportable Toxic Vacuolation Not Reportable Dohle Bodies Not Reportable Pelger-Huet Anomaly Not Reportable Juan José Rods Not Reportable Platelet Estimate Consistent w auto Clumped Platelets Not Reportable Plt Clumps, EDTA Not Reportable Large Platelets 1+ Giant Platelets Not Reportable Platelet Satelliting Not Reportable Plt Morphology Comment Not Reportable RBC Morphology Not Reportable Dimorphic RBCs Not Reportable Polychromasia Not Reportable Hypochromasia Not Reportable Poikilocytosis 1+ Anisocytosis 1+ Microcytosis Not Reportable Macrocytosis Not Reportable Spherocytes Not Reportable Pappenheimer Bodies Not Reportable Sickle Cells Not Reportable Target Cells Not Reportable Tear Drop Cells Not Reportable Ovalocytes Few Helmet Cells Not Reportable Doyle-[place] Bodies Not Reportable Stendal Rings Not Reportable Amelia Cells Not Reportable Bite Cells Not Reportable Crenated Cell Not Reportable Elliptocytes Few Acanthocytes (Spur) Not Reportable Rouleaux Not Reportable Hemoglobin C Crystals Not Reportable Schistocytes Not Reportable Malaria parasites Not Reportable Noe Bodies Not Reportable Hem Pathologist Commnt No PT INR APTT Sodium 137 Potassium 4.5 Chloride 99.1 Carbon Dioxide 22 Anion Gap 20 BUN 7 L Creatinine 0.7 L Estimated GFR > 60 BUN/Creatinine Ratio 10 Glucose 86 Lactic Acid 2.60 H* Calcium 9.9 Magnesium Total Bilirubin Direct Bilirubin Indirect Bilirubin AST ALT Alkaline Phosphatase Ammonia Troponin T NT-Pro-B Natriuret Pep Total Protein Albumin Albumin/Globulin Ratio Lipase Plasma/Serum Alcohol Blood Type Antibody Screen 12/15/19 12/15/19 12/15/19 10:37 10:37 10:37 WBC RBC Hgb Hct MCV MCH MCHC RDW Plt Count Lymph % (Auto) Wise % (Auto) Eos % (Auto) Baso % (Auto) Lymph # Wise # Eos # Baso # Add Manual Diff Total Counted Seg Neutrophils % Seg Neuts % (Manual) Band Neutrophils % Lymphocytes % (Manual) Reactive Lymphs % (Man) Monocytes % (Manual) Eosinophils % (Manual) Basophils % (Manual) Metamyelocytes % Myelocytes % Promyelocytes % Blast Cells % Nucleated RBC % Seg Neutrophils # Seg Neutrophils # Man Band Neutrophils # Lymphocytes # (Manual) Abs React Lymphs (Man) Monocytes # (Manual) Eosinophils # (Manual) Basophils # (Manual) Metamyelocytes # Myelocytes # Promyelocytes # Blast Cells # WBC Morphology Hypersegmented Neuts Hyposegmented Neuts Hypogranular Neuts Smudge Cells Toxic Granulation Toxic Vacuolation Dohle Bodies Pelger-Huet Anomaly Juan José Rods Platelet Estimate Clumped Platelets Plt Clumps, EDTA Large Platelets Giant Platelets Platelet Satelliting Plt Morphology Comment RBC Morphology Dimorphic RBCs Polychromasia Hypochromasia Poikilocytosis Anisocytosis Microcytosis Macrocytosis Spherocytes Pappenheimer Bodies Sickle Cells Target Cells Tear Drop Cells Ovalocytes Helmet Cells Doyle-[place] Bodies Stendal Rings [place] Cells Bite Cells Crenated Cell Elliptocytes Acanthocytes (Spur) Rouleaux Hemoglobin C Crystals Schistocytes Malaria parasites Noe Bodies Hem Pathologist Commnt PT 13.7 INR 1.04 APTT 32.6 Sodium Potassium Chloride Carbon Dioxide Anion Gap BUN Creatinine Estimated GFR BUN/Creatinine Ratio Glucose Lactic Acid Calcium Magnesium 1.80 Total Bilirubin 0.40 Direct Bilirubin < 0.2 Indirect Bilirubin 0.2 AST 23 ALT 9 Alkaline Phosphatase 96 Ammonia Troponin T < 0.010 NT-Pro-B Natriuret Pep 185.8 Total Protein 8.0 Albumin 4.1 Albumin/Globulin Ratio 1.1 Lipase Plasma/Serum Alcohol < 0.01 Blood Type Antibody Screen 12/15/19 12/15/19 12/15/19 10:37 10:42 10:48 WBC RBC Hgb Hct MCV MCH MCHC RDW Plt Count Lymph % (Auto) Wise % (Auto) Eos % (Auto) Baso % (Auto) Lymph # Wise # Eos # Baso # Add Manual Diff Total Counted Seg Neutrophils % Seg Neuts % (Manual) Band Neutrophils % Lymphocytes % (Manual) Reactive Lymphs % (Man) Monocytes % (Manual) Eosinophils % (Manual) Basophils % (Manual) Metamyelocytes % Myelocytes % Promyelocytes % Blast Cells % Nucleated RBC % Seg Neutrophils # Seg Neutrophils # Man Band Neutrophils # Lymphocytes # (Manual) Abs React Lymphs (Man) Monocytes # (Manual) Eosinophils # (Manual) Basophils # (Manual) Metamyelocytes # Myelocytes # Promyelocytes # Blast Cells # WBC Morphology Hypersegmented Neuts Hyposegmented Neuts Hypogranular Neuts Smudge Cells Toxic Granulation Toxic Vacuolation Dohle Bodies Pelger-Huet Anomaly Juan José Rods Platelet Estimate Clumped Platelets Plt Clumps, EDTA Large Platelets Giant Platelets Platelet Satelliting Plt Morphology Comment RBC Morphology Dimorphic RBCs Polychromasia Hypochromasia Poikilocytosis Anisocytosis Microcytosis Macrocytosis Spherocytes Pappenheimer Bodies Sickle Cells Target Cells Tear Drop Cells Ovalocytes Helmet Cells Doyle-[place] Bodies Stendal Rings Amelia Cells Bite Cells Crenated Cell Elliptocytes Acanthocytes (Spur) Rouleaux Hemoglobin C Crystals Schistocytes Malaria parasites Noe Bodies Hem Pathologist Commnt PT INR APTT Sodium Potassium Chloride Carbon Dioxide Anion Gap BUN Creatinine Estimated GFR BUN/Creatinine Ratio Glucose Lactic Acid Calcium Magnesium Total Bilirubin Direct Bilirubin Indirect Bilirubin AST ALT Alkaline Phosphatase Ammonia 48.0 Troponin T NT-Pro-B Natriuret Pep Total Protein Albumin Albumin/Globulin Ratio Lipase 17 Plasma/Serum Alcohol Blood Type O POSITIVE Antibody Screen Negative 12/15/19 13:32 WBC RBC Hgb Hct MCV MCH MCHC RDW Plt Count Lymph % (Auto) Wise % (Auto) Eos % (Auto) Baso % (Auto) Lymph # Wise # Eos # Baso # Add Manual Diff Total Counted Seg Neutrophils % Seg Neuts % (Manual) Band Neutrophils % Lymphocytes % (Manual) Reactive Lymphs % (Man) Monocytes % (Manual) Eosinophils % (Manual) Basophils % (Manual) Metamyelocytes % Myelocytes % Promyelocytes % Blast Cells % Nucleated RBC % Seg Neutrophils # Seg Neutrophils # Man Band Neutrophils # Lymphocytes # (Manual) Abs React Lymphs (Man) Monocytes # (Manual) Eosinophils # (Manual) Basophils # (Manual) Metamyelocytes # Myelocytes # Promyelocytes # Blast Cells # WBC Morphology Hypersegmented Neuts Hyposegmented Neuts Hypogranular Neuts Smudge Cells Toxic Granulation Toxic Vacuolation Dohle Bodies Pelger-Huet Anomaly Juan José Rods Platelet Estimate Clumped Platelets Plt Clumps, EDTA Large Platelets Giant Platelets Platelet Satelliting Plt Morphology Comment RBC Morphology Dimorphic RBCs Polychromasia Hypochromasia Poikilocytosis Anisocytosis Microcytosis Macrocytosis Spherocytes Pappenheimer Bodies Sickle Cells Target Cells Tear Drop Cells Ovalocytes Helmet Cells Doyle-[place] Bodies Stendal Rings Amelia Cells Bite Cells Crenated Cell Elliptocytes Acanthocytes (Spur) Rouleaux Hemoglobin C Crystals Schistocytes Malaria parasites Noe Bodies Hem Pathologist Commnt PT INR APTT Sodium Potassium Chloride Carbon Dioxide Anion Gap BUN Creatinine Estimated GFR BUN/Creatinine Ratio Glucose Lactic Acid 1.40 Calcium Magnesium Total Bilirubin Direct Bilirubin Indirect Bilirubin AST ALT Alkaline Phosphatase Ammonia Troponin T NT-Pro-B Natriuret Pep Total Protein Albumin Albumin/Globulin Ratio Lipase Plasma/Serum Alcohol Blood Type Antibody Screen - EKG Data -: EKG Interpreted by [facility] EKG shows normal: sinus rhythm, axis (Left axis), intervals, QRS complexes (Increased voltage), ST-T waves Rate: tachycardia - EKG Data Interpretation: nonspecific ST-T wave thad, LVH (With associated repolarization abnormality), other (1 ectopic beat) - Radiology Data Radiology results: report reviewed, image reviewed IMPRESSION: 1. Stable appearance of the chest with left pleural effusion and med iastinal/pleural nodularity. Critical care attestation.: If time is entered above; I have spent that time in minutes in the direct care of this critically ill patient, excluding procedure time. ED Disposition Clinical Impression: Cancer, metastatic, Dehydration Nausea & vomiting Qualifiers: Vomiting type: unspecified Vomiting Intractability: non-intractable Qualified Code(s): R11.2 - Nausea with vomiting, unspecified Disposition: DC-01 TO HOME OR SELFCARE Is pt being admited?: No Does the pt Need Aspirin: No Condition: Stable Instructions: Gastrointestinal Bleeding (ED), Acute Nausea and Vomiting (ED) Additional Instructions: Return any signs of significant bleeding or dark stool. Continue your Protonix medicine. Keep appointment at the [facility]. Return any acute change or problem. Rx Zofran. 2 blood culture tests were ordered today. Your primary care doctor should follow-up on these by 4 8 hours. Return to the emergency department if you experience any fever. Prescriptions: Pantoprazole [Protonix TAB] 40 mg PO QDAY #30 tablet Ondansetron (Nf) [Zofran TAB] 8 mg PO Q8HR PRN 14 Days #20 tablet PRN Reason: Nausea Referrals: PRIMARY CAREMD [Primary Care Provider] - 3-5 Days [facility] [Provider Group] - 3-5 Days [facility] clinics [Other] - 2-3 Days Time of Disposition: 11:56
[2019-12-15] MEDS ORDERED: SODIUM CHLORIDE 0.9% 1000 ML 1,000 ML IV ONE ×2 (10:30→12:00)
[2019-12-15] MEDS ORDERED: PANTOPRAZOLE 40 MG INJ IV ONE (10:30)
[2019-12-15] MEDS ORDERED: ONDANSETRON 4 MG/2 ML INJ IV ONE (10:30)
[2019-12-15 10:48] LABS: Hematocrit 38.8 % (35.5-45.6); Hemoglobin 12.1 gm/dl (11.8-15.2); Mean Corpuscular HGB Conc 31 % (32-34); Mean Corpuscular Volume 81 fl (84-94); Platelet Count 510 K/mm3 (140-440); Red Blood Count 4.79 M/mm3 (3.65-5.03); Red Cell Distribution Width 19.4 % (13.2-15.2)
--- NOTE | 2019-12-15 10:59 | XRay Report ---
CHEST 1 VIEW INDICATION / CLINICAL INFORMATION: hypertension. COMPARISON: 11/26/2019 FINDINGS: SUPPORT DEVICES: Stable, satisfactory device positioning. HEART / MEDIASTINUM: Heart size is stable. Nodularity in the aorticopulmonary region is unchanged. LUNGS / PLEURA: Loculated pleural masses in the left upper hemithorax are stable. Probable left pleur al effusion is unchanged. No visualized new or acute lung disease. No pneumothorax. ADDITIONAL FINDINGS: No significant additional findings. IMPRESSION: 1. Stable appearance of the chest with left pleural effusion and mediastinal/pleural nodularity. Signer Name: Jr Yu MD Signed: 12/15/2019 10:55 AM Workstation Name: [id number]
[2019-12-15 11:02] LABS: BUN/Creatinine Ratio 10; Blood Urea Nitrogen 7 mg/dL (9-20); Calcium 9.9 mg/dL (8.4-10.2); Hemolysis Index 8
[2019-12-15 11:11] LABS: Alanine Aminotransferase 9 units/L (7-56); Albumin 4.1 g/dL (3.9-5); INR 1.04 (0.87-1.13)
[2019-12-15 11:12] LABS: Basophils # (Auto) 0.1 K/mm3 (0.0-0.1); Eosinophils # (Auto) 0.1 K/mm3 (0.0-0.4); Eosinophils % (Auto) 1.3 % (0.0-4.3); Lymphocytes # (Auto) 1.4 K/mm3 (1.2-5.4); Lymphocytes % (Auto) 19.4 % (13.4-35.0); Monocytes # (Auto) 0.5 K/mm3 (0.0-0.8); Monocytes % (Auto) 7.1 % (0.0-7.3)
[2019-12-15 11:13] LABS: Partial Thromboplastin Time 32.6 Sec. (24.2-36.6)
[2019-12-15 11:26] LABS: Bilirubin,Direct < 0.2 mg/dL (0-0.2)
[2019-12-15] MEDS: SODIUM CHLORIDE 0.9% 500 ML 500 ML IV ONE ×2 (12:00→13:30)
[2019-12-15 12:04] LABS: Anisocytosis 1+; Basophils % (Manual) 0 % (0.0-1.8); Large Platelets 1+; Ovalocytes Few; Platelet Estimate Consistent w Auto; Poikilocytosis 1+; Total Cells Counted 100
[2019-12-15] MEDS ORDERED: HYDROcodone/ACETAMINOPHEN 5-325 MG TAB PO ONE (13:40)
[2019-12-15 14:43] LABS: Bilirubin,Urine NEG (Negative); Blood,Urine NEG (Negative); Color,Urine Yellow (Yellow); Mucus,Urine 2+ /HPF; Protein,Urine <15 mg/dL mg/dL (Negative); Urobilinogen,Urine < 2.0 mg/dL (<2.0)
[2019-12-15 14:49] VITALS: BP 114/68
== END 2019-12-15 14:58 | disposition home or self-care (01) ==
LOC: ED 10:00
DX: C78.00 Secondary malignant neoplasm of unspecified lung (principal); E86.0 Dehydration; R11.2 Nausea with vomiting, unspecified; I50.9 Heart failure, unspecified; Z98.890 Other specified postprocedural states; Z87.891 Personal history of nicotine dependence; Z79.899 Other long term (current) drug therapy
CPT/HCPCS: 36415; 71045; 80048; 80076; 81001; 82140; 83690; 83735; 83880; 84484; 85007; 85025; 85610; 85730; 86850; 86900; 86901; 87040; 93005; 96361; 96374; 96375; 99284; C9113; J1642; J2405; J7030; J7040; 80320; G0480

== ENCOUNTER 2020-01-13 03:11 | Inpatient (IN) | payer MEDICARE ==
--- NOTE | 2020-01-13 03:50 | XRay Report ---
CHEST 1 VIEW, 01/13/2020 3:22 AM CLINICAL INFORMATION/INDICATION: Chest pain COMPARISON: Chest radiograph, 12/22/2019 FINDINGS: SUPPORT DEVICES: Right-sided medication catheter remains in stable position. HEART: The cardiac silhouette appears upper limits of normal in size. LUNGS/PLEURA: Pleural based left lung masses are again noted and appear similar to the previous study . There is a small to moderate size left-sided pleural effusion, which is decreased since the previou s study. ADDITIONAL FINDINGS: No additional acute findings. IMPRESSION: 1. Small to moderate left-sided pleural effusion, decreased from the previous study. 2. Stable radiographic appearance of left lung masses. Signer Name: Lindsey Stephen MD Signed: 01/13/2020 3:45 AM Workstation Name: [email or web address]
--- NOTE | 2020-01-13 03:53 | Emergency Department Report ---
HPI - General Chief Complaint: Chest Pain Time Seen by Provider: 01/13/20 03:35 - HPI HPI: Room 4 The patient is a 64-year-old male present with a chief complaint of chest pain and syncope. Patient states he was diagnosed with a PE last week at the [facility]. Patient states he was started on Eliquis. The patient states today while sitting on the toilet and straining he had a syncopal episode. Patient states prior to passing out he felt dizzy, developed palpitations and felt as though everything "became very bright." The patient states several hours later while walking to the bathroom he had another syncopal episode with the same preceding symptoms. Patient admits to shortness of breath and nausea in addition to left-sided chest, thorax pain ED Past Medical Hx - Past Medical History Previous Medical History?: Yes Hx Hypertension: Yes Hx Congestive Heart Failure: Yes Additional medical history: Lung cancer, GI bleed, peptic ulcer disease - Surgical History Past Surgical History?: Yes Additional Surgical History: Left Lung biopsy - Family History Family history: no significant - Social History Smoking Status: Former Smoker (None x5 years) Substance Use Type: None (Denies illicit drug use), Alcohol (Occasional) - Medications Home Medications: Home Medications Medication Instructions Recorded Confirmed Last Taken Type Gabapentin [Neurontin] 600 mg PO BID 11/25/19 01/13/20 12/07/19 History Isosorbide Mononitrate 30 mg PO DAILY 11/25/19 01/13/20 12/07/19 History Metoprolol [Lopressor TAB] 37.5 mg PO DAILY 11/25/19 01/13/20 12/07/19 History hydrALAZINE [Apresoline TAB] 10 mg PO BID 11/25/19 01/13/20 12/08/19 History Zolpidem [Ambien] 10 mg PO QHS #30 tab 12/09/19 01/13/20 Unknown Rx Pantoprazole [Protonix TAB] 40 mg PO QDAY #30 tablet 12/15/19 01/13/20 Unknown Rx Aspirin [Aspirin BABY CHEW TAB] 81 mg PO QDAY 01/13/20 01/13/20 Unknown History Sennosides [Senna] 8.6 mg PO BID 01/13/20 01/13/20 Unknown History ED Review of Systems ROS: Stated complaint: SYNCOPAL EPISODE, VOMITING, PAIN LEFT SIDE Other details as noted in HPI Constitutional: no symptoms reported Respiratory: shortness of breath Cardiovascular: chest pain, palpitations Endocrine: no symptoms reported Gastrointestinal: nausea Neurological: other (Dizziness) Physical Exam - Physical Exam Vital Signs: Vital Signs 01/13/20 03:15 Temperature 98.3 F Pulse Rate 132 H Respiratory 18 Rate Blood Pressure 131/95 O2 Sat by Pulse 98 Oximetry Physical Exam: GENERAL: The patient is well-developed well-nourished male lying on stretcher not appearing to be in acute distress. [] HEENT: Normocephalic. Atraumatic. Extraocular motions are intact. Patient has moist mucous membranes. NECK: Supple. Trachea midline CHEST/LUNGS: Clear to auscultation. There is no respiratory distress noted. HEART/CARDIOVASCULAR: Regular. There is tachycardia. There is no gallop rub or murmur. ABDOMEN: Abdomen is soft, nontender. Patient has normal bowel sounds. There is no abdominal distention. SKIN: There is no rash. There is no edema. There is no diaphoresis. NEURO: The patient is awake, alert, and oriented. The patient is cooperative. The patient has no focal neurologic deficits. The patient has normal speech. Cranial nerves II through XII grossly intact MUSCULOSKELETAL: There is no evidence of acute injury. RECTAL: Guaiac negative ED Course Vital Signs 01/13/20 03:15 Temperature 98.3 F Pulse Rate 132 H Respiratory 18 Rate Blood Pressure 131/95 O2 Sat by Pulse 98 Oximetry ED Medical Decision Making - Lab Data Result diagrams: 01/13/20 03:24 01/13/20 03:24 Laboratory Tests 01/13/20 01/13/20 03:24 03:24 WBC 6.1 RBC 3.76 Hgb 9.7 L Hct 30.4 L MCV 81 L MCH 26 L MCHC 32 RDW 18.6 H Plt Count 552 H Lymph % (Auto) 11.7 L Meade % (Auto) 1.1 Eos % (Auto) 0.4 Baso % (Auto) 0.8 Lymph # 0.7 L Meade # 0.1 Eos # 0.0 Baso # 0.1 Seg Neutrophils % 86.0 H Seg Neutrophils # 5.2 Sodium 137 Potassium 4.0 Chloride 96.5 L Carbon Dioxide 27 Anion Gap 18 BUN 10 Creatinine 0.5 L Estimated GFR > 60 BUN/Creatinine Ratio 20 Glucose 123 H Calcium 9.2 Troponin T < 0.010 - EKG Data -: EKG Interpreted by Me EKG shows normal: sinus rhythm Rate: tachycardia (132 bpm) - EKG Data When compared to previous EKG there are: previous EKG unavailable Interpretation: other (Frequent PVCs) - Radiology Data Radiology results: report reviewed (Chest x-ray, CT chest), image reviewed (Chest x-ray, CT chest) interpreted by me: Chest x-ray-left pleural effusion. No pneumothorax [address] [address] XRay Report Signed Patient: TIMMY ADRIAN MR#: [id number] : 1955 Acct:[id number] Age/Sex: 64 / M ADM Date: 01/13/20 Loc: ED Attending Dr: Ordering Physician: RACHEL HORAN MD Date of Service: 01/13/20 Procedure(s): XR chest 1V ap Accession Number(s): [id number] cc: RACHEL HORAN MD Fluoro Time In Minutes: CHEST 1 VIEW, 01/13/2020 3:22 AM CLINICAL INFORMATION/INDICATION: Chest pain COMPARISON: Chest radiograph, 12/22/2019 FINDINGS: SUPPORT DEVICES: Right-sided medication catheter remains in stable position. HEART: The cardiac silhouette appears upper limits of normal in size. LUNGS/PLEURA: Pleural based left lung masses are again noted and appear similar to the previous study. There is a small to moderate size left-sided pleural effusion, which is decreased since the previous study. ADDITIONAL FINDINGS: No additional acute findings. IMPRESSION: 1. Small to moderate left-sided pleural effusion, decreased from the previous study. 2. Stable radiographic appearance of left lung masses. Signer Name: Lindsey Stephen MD Signed: 01/13/2020 3:45 AM Workstation Name: [id number] Transcribed By: EB Dictated By: Lindsey Stephen MD Electronically Authenticated By: Lindsey Stephen MD Signed Date/Time: 01/13/20344 DD/ 2 TD/TT: Findings [address] [address] Cat Scan Report Signed Patient: TIMMY DARIAN MR#: [id number] : 1955 Acct:[id number] Age/Sex: 64 / M ADM Date: 01/13/20 Loc: ED Attending Dr: Ordering Physician: RACHEL HORAN MD Date of Service: 01/13/20 Procedure(s): CT angio chest Accession Number(s): [id number] cc: RACHEL HORAN MD CTA CHEST WITH IV CONTRAST INDICATION: Shortness of breath. Chest pain. History of lung cancer. TECHNIQUE: Axial CT images were obtained through the chest after injection of IV contrast. Coronal oblique 2-D reconstruction images were produced. 3 plane MIP reconstruction images were produced at an independent workstation. All CTs at this facility utilize dose reduction techniques including automated exposure control, iterative reconstruction and weight based dosing when appropriate to reduce patient radiation dose to as low as reasonable achievable. COMPARISON: CT of the chest, 12/05/2019 FINDINGS: No filling defects are visualized within the central or segmental pulmonary arteries to suggest pulmonary embolism. The heart is normal in size. Evaluation of the lung parenchyma again demonstrates at least 3 pleural-based left lateral lung masses, the largest of which measures 3.9 x 1.1 cm. The small to moderate sized left- sided pleural effusion has not significantly changed and appears to be at least partially loculated. No definitive superimposed airspace disease is visualized. Also again noted is diffuse circumferential thickening of the mid and distal esophagus. Limited imaging of the upper abdomen demonstrates several subtle low density lesions throughout the hepatic parenchyma which are difficult to characterize. Evaluation of bony structures demonstrates no evidence of acute bony abnormality. There are moderately advanced multilevel degenerative changes of the thoracic spine.. IMPRESSION: 1. No evidence of pulmonary embolism. 2. Stable appearance of multiple pleural-based left lung masses. 3. Stable small to moderate left-sided pleural effusion. 4. Circumferential thickening of the mid and distal esophagus concerning for esophagitis. 5. Scattered low density hepatic lesions which are not possible to characterize on today's study. Signer Name: Lindsey Stephen MD Signed: 01/13/2020 5:20 AM Workstation Name: [id number] Transcribed By: LUTHER Dictated By: Lindsey Stephen MD Electronically Authenticated By: Lindsey Stephen MD Signed Date/Time: 01/13/20519 DD/DT: 0 01/13/20511 TD/TT: - Differential Diagnosis PE, dysrhythmia, ACS, Critical care attestation.: If time is entered above; I have spent that time in minutes in the direct care of this critically ill patient, excluding procedure time. ED Disposition Clinical Impression: Chest pain, Syncope, Pleural effusion, left Disposition: OP ADMIT IP TO THIS HOSP Is pt being admited?: Yes Does the pt Need Aspirin: Yes Condition: Fair Instructions: Chest Pain (ED), Syncope (ED) Referrals: PRIMARY CARE,MD [Primary Care Provider] - 3-5 Days Time of Disposition: 05:28 (Hospitalist paged (Dr Kingston))
[2020-01-13] MEDS ORDERED: SODIUM CHLORIDE 0.9% 500 ML 500 ML IV ONE (04:02)
[2020-01-13] MEDS ORDERED: ONDANSETRON 4 MG/2 ML INJ ONE (04:08)
[2020-01-13] MEDS ORDERED: fentaNYL 100 MCG/2 ML INJ IV PRN (04:10)
[2020-01-13] MEDS ORDERED: fentaNYL 100 MCG/2 ML INJ IV ONE (04:10)
[2020-01-13] MEDS ORDERED: ONDANSETRON 4 MG/2 ML INJ IV ONE ×2 (04:11→05:28)
[2020-01-13] MEDS ORDERED: fentaNYL 100 MCG/2 ML INJ ONE (04:12)
[2020-01-13 04:16] LABS: Basophils # (Auto) 0.1 K/mm3 (0.0-0.1); Basophils % (Auto) 0.8 % (0.0-1.8); Eosinophils % (Auto) 0.4 % (0.0-4.3); Hematocrit 30.4 % (35.5-45.6); Hemoglobin 9.7 gm/dl (11.8-15.2); Lymphocytes # (Auto) 0.7 K/mm3 (1.2-5.4); Lymphocytes % (Auto) 11.7 % (13.4-35.0); Mean Corpuscular HGB Conc 32 % (32-34); Mean Corpuscular Volume 81 fl (84-94); Monocytes # (Auto) 0.1 K/mm3 (0.0-0.8); Monocytes % (Auto) 1.1 % (0.0-7.3); Platelet Count 552 K/mm3 (140-440); Red Blood Count 3.76 M/mm3 (3.65-5.03); Red Cell Distribution Width 18.6 % (13.2-15.2)
[2020-01-13 04:37] LABS: BUN/Creatinine Ratio 20; Blood Urea Nitrogen 10 mg/dL (9-20); Calcium 9.2 mg/dL (8.4-10.2); Hemolysis Index 4
[2020-01-13] MEDS: ASPIRIN 325 MG TAB PO ONE ×2 (05:22→05:36)
--- NOTE | 2020-01-13 05:24 | Cat Scan Report ---
CTA CHEST WITH IV CONTRAST INDICATION: Shortness of breath. Chest pain. History of lung cancer. TECHNIQUE: Axial CT images were obtained through the chest after injection of IV contrast. Coronal oblique 2-D reconstruction images were produced. 3 plane MIP reconstruction images were produced at an [employer] workstation. All CTs at this facility utilize dose reduction techniques including automated expos ure control, iterative reconstruction and weight based dosing when appropriate to reduce patient radi ation dose to as low as reasonable achievable. COMPARISON: CT of the chest, 12/05/2019 FINDINGS: No filling defects are visualized within the central or segmental pulmonary arteries to suggest pulmo nary embolism. The heart is normal in size. Evaluation of the lung parenchyma again demonstrates at l east 3 pleural-based left lateral lung masses, the largest of which measures 3.9 x 1.1 cm. The small to moderate sized left-sided pleural effusion has not significantly changed and appears to be at leas t partially loculated. No definitive superimposed airspace disease is visualized. Also again noted is diffuse circumferential thickening of the mid and distal esophagus. Limited imaging of the upper abdomen demonstrates several subtle low density lesions throughout the h epatic parenchyma which are difficult to characterize. Evaluation of bony structures demonstrates no evidence of acute bony abnormality. There are moderatel y advanced multilevel degenerative changes of the thoracic spine.. IMPRESSION: 1. No evidence of pulmonary embolism. 2. Stable appearance of multiple pleural-based left lung masses. 3. Stable small to moderate left-sided pleural effusion. 4. Circumferential thickening of the mid and distal esophagus concerning for esophagitis. 5. Scattered low density hepatic lesions which are not possible to characterize on today's study. Signer Name: Lindsey Stephen MD Signed: 01/13/2020 5:20 AM Workstation Name: [id number]
[2020-01-13] MEDS ORDERED: PANTOPRAZOLE 40 MG INJ IV ONE ×2 (05:31→09:41)
[2020-01-13] MEDS ORDERED: ASPIRIN 325 MG TAB ONE (05:34)
[2020-01-13] MEDS ORDERED: LORazepam 2 MG/ML VIAL IV ONE (05:46)
[2020-01-13] MEDS ORDERED: NITROGLYCERIN 0.4 MG TAB SUBL SL PRN (05:54)
[2020-01-13] MEDS: SODIUM CHLORIDE 0.9% 1000 ML 1,000 ML IV SCH ×2 (06:27→21:00)
--- NOTE | 2020-01-13 06:37 | History and Physical Report ---
History of Present Illness Date of examination: 01/13/20 Date of admission: 01/13/2020 Chief complaint: Chest pain Syncope History of present illness: 64-year-old -[place] male with known history of hypertension, CHF, lung cancer, peptic ulcer disease sent into the emergency room today complaining of chest pain and syncope. Patient indicates that he was sitting on the toilet seat today and had a syncopal episode while he was straining. He had also been feeling dizzy prior to the syncopal episode. Patient states he was recently diagnosed with pulmonary embolism at the [facility] about a week ago and has been placed on Eliquis. He has been having left-sided chest pain after the syncopal episode today with associated palpitations. There has been no radiation of his chest pain. He has had some nausea and vomiting and indicates he has been vomiting blood. He denies any bright red blood per rectum, he denies any hematuria or dysuria. He also indicates that he has palpitations when he has his anxiety. Patient has history of lung cancer and had been on chemotherapy. Upon arrival in the emergency room found to be slightly tachycardic, CT angio gram of the chest was unremarkable. Was also found to be having hematemesis. Past History Past Medical History: heart failure, hypertension, other (Lung cancer, peptic ulcer disease, history of GI bleed) Past Surgical History: No surgical history Social history: no significant social history, smoking (Quit tobacco use 5 years ago) Family history: no significant family history Medications and Allergies Allergies Allergy/AdvReac Type Severity Reaction Status Date / Time Penicillins Allergy Unknown Verified 12/22/19 05:13 Home Medications Medication Instructions Recorded Confirmed Last Taken Type Gabapentin [Neurontin] 600 mg PO BID 11/25/19 01/13/20 12/07/19 History Isosorbide Mononitrate 30 mg PO DAILY 11/25/19 01/13/20 12/07/19 History Metoprolol [Lopressor TAB] 37.5 mg PO DAILY 11/25/19 01/13/20 12/07/19 History hydrALAZINE [Apresoline TAB] 10 mg PO BID 11/25/19 01/13/20 12/08/19 History Zolpidem [Ambien] 10 mg PO QHS #30 tab 12/09/19 01/13/20 Unknown Rx Pantoprazole [Protonix TAB] 40 mg PO QDAY #30 tablet 12/15/19 01/13/20 Unknown Rx Aspirin [Aspirin BABY CHEW TAB] 81 mg PO QDAY 01/13/20 01/13/20 Unknown History Sennosides [Senna] 8.6 mg PO BID 01/13/20 01/13/20 Unknown History Active Meds: Active Medications Fentanyl (Sublimaze) 25 mcg IV ONCE PRN PRN Reason: Chest Pain Last Admin: 01/13/20 05:44 Dose: 25 mcg Documented by: Sodium Chloride (Nacl 0.9% 1000 Ml) 1,000 mls @ 100 mls/hr IV DIRECT [facility] Last Admin: 01/13/20 06:27 Dose: 100 mls/hr Documented by: Morphine Sulfate (Morphine) 2 mg IV Q5MIN PRN PRN Reason: Chest Pain Nitroglycerin (Nitrostat) 0.4 mg SL Q5M PRN PRN Reason: Chest Pain Pantoprazole Sodium (Protonix) 40 mg IV BID [facility] Sodium Chloride (Sodium Chloride Flush Syringe 10 Ml) 10 ml IV PRN PRN PRN Reason: LINE FLUSH Review of Systems Constitutional: no fever, no chills Cardiovascular: chest pain, palpitations, syncope Respiratory: no cough, no shortness of breath Gastrointestinal: abdominal pain, nausea, vomiting, hematemesis, no BRBPR, no melena Genitourinary Male: no dysuria, no hematuria, no urinary frequency, no urinary hesitancy Musculoskeletal: no neck pain, no low back pain Integumentary: no rash, no pruritis Neurological: syncope, no headaches Psychiatric: anxiety, no depression Exam - Constitutional Vitals: Temp Pulse Resp BP Pulse Ox 98.3 F 124 H 21 128/92 96 01/13/20 03:15 01/13/20 04:01 01/13/20 05:44 01/13/20 04:01 01/13/20 04:01 General appearance: Present: no acute distress, well-nourished - EENT Eyes: Present: PERRL, EOM intact ENT: hearing intact, clear oral mucosa, dentition normal - Neck Neck: Present: supple, normal ROM - Respiratory Respiratory effort: normal Respiratory: bilateral: CTA - Cardiovascular Rhythm: regular Heart Sounds: Present: S1 & S2 - Extremities Extremities: no ischemia, pulses intact, pulses symmetrical, No edema, Full ROM Peripheral Pulses: within normal limits - Abdominal General gastrointestinal: Present: soft, tender (Mild epigastric tenderness), non-distended, normal bowel sounds - Integumentary Integumentary: Present: clear, warm, dry, pale. Absent: jaundice - Musculoskeletal Musculoskeletal: strength equal bilaterally - Psychiatric Psychiatric: appropriate mood/affect, intact judgment & insight - Neurologic Neurologic: CNII-XII intact, moves all extremities HEART Score - HEART Score Troponin: Troponin T < 0.010 ng/mL (0.00-0.029) 01/13/20 03:24 Results - Labs CBC & Chem 7: 01/13/20 03:24 01/13/20 03:24 Labs: Abnormal lab results 01/13/20 01/13/20 Range/Units 03:24 03:24 Hgb 9.7 L (11.8-15.2) gm/dl Hct 30.4 L (35.5-45.6) % MCV 81 L (84-94) fl MCH 26 L (28-32) pg RDW 18.6 H (13.2-15.2) % Plt Count 552 H (140-440) K/mm3 Lymph % (Auto) 11.7 L (13.4-35.0) % Lymph # 0.7 L (1.2-5.4) K/mm3 Seg Neutrophils % 86.0 H (40.0-70.0) % Chloride 96.5 L (98-107) mmol/L Creatinine 0.5 L (0.8-1.5) mg/dL Glucose 123 H (75-100) mg/dL Assessment and Plan - Patient Problems (1) Chest pain Current Visit: Yes Status: Acute Plan to address problem: Patient admitted and placed on telemetry. Will check serial cardiac enzymes. Will monitor EKG. We will place a consult to cardiology for evaluation and further recommendation. (2) History of pulmonary embolism Current Visit: Yes Status: Acute Plan to address problem: Patient was diagnosed with pulmonary embolism at the [facility] about a week ago and was placed on Eliquis. CT angiogram today did not reveal any pulmonary embolism. Will hold anticoagulation in view of the GI bleed. (3) Syncope Current Visit: Yes Status: Acute Plan to address problem: Etiology is unclear possibly secondary to volume depletion from nausea and vom iting and GI bleed. Patient placed on IV fluid. Will monitor vital signs closely (4) Lung cancer Current Visit: No Status: Acute Plan to address problem: Patient has history of lung cancer and had been on chemotherapy (5) Upper GI bleed Current Visit: No Status: Acute Plan to address problem: Patient has known history of peptic ulcer disease. Will place on IV Protonix. Patient will be made n.p.o. Consult be placed to gastroenterology for further evaluation and recommendation. (6) DVT prophylaxis Current Visit: No Status: Acute Plan to address problem: Patient placed on sequential compression device. We will hold anticoagulation in view of the GI bleed (7) Full code status Current Visit: Yes Status: Acute
[2020-01-13] MEDS: MORPHINE 4 MG/1 ML INJ IV PRN ×4 (07:53→18:31)
[2020-01-13 08:02] LABS: Basophils # (Auto) 0.1 K/mm3 (0.0-0.1); Eosinophils % (Auto) 0.2 % (0.0-4.3); Hematocrit 30.5 % (35.5-45.6); Hemoglobin 9.7 gm/dl (11.8-15.2); Lymphocytes # (Auto) 0.7 K/mm3 (1.2-5.4); Lymphocytes % (Auto) 11.9 % (13.4-35.0); Mean Corpuscular HGB Conc 32 % (32-34); Mean Corpuscular Volume 81 fl (84-94); Monocytes # (Auto) 0.1 K/mm3 (0.0-0.8); Monocytes % (Auto) 1.5 % (0.0-7.3); Platelet Count 529 K/mm3 (140-440); Red Blood Count 3.79 M/mm3 (3.65-5.03); Red Cell Distribution Width 18.6 % (13.2-15.2)
[2020-01-13 08:19] LABS: BUN/Creatinine Ratio 17; Blood Urea Nitrogen 10 mg/dL (9-20); Calcium 9.1 mg/dL (8.4-10.2); Hemolysis Index 12
[2020-01-13] MEDS ORDERED: PROCHLORPERAZINE EDISYLATE 10 MG/2 ML VIAL IV NR (08:33)
[2020-01-13] MEDS ORDERED: MORPHINE 2 MG/1 ML INJ ONE (09:45)
[2020-01-13] MEDS: PANTOPRAZOLE 40 MG INJ IV SCH ×2 (09:53→21:39)
--- NOTE | 2020-01-13 11:02 | Consultation ---
Past History Past Medical History: heart failure, hypertension, other (Lung cancer, peptic ulcer disease, history of GI bleed) Past Surgical History: No surgical history Social history: no significant social history, smoking (Quit tobacco use 5 years ago) Family history: no significant family history Medications and Allergies Allergies Allergy/AdvReac Type Severity Reaction Status Date / Time Penicillins Allergy Unknown Verified 12/22/19 05:13 Home Medications Medication Instructions Recorded Confirmed Last Taken Type Gabapentin [Neurontin] 600 mg PO BID 11/25/19 01/13/20 12/07/19 History Isosorbide Mononitrate 30 mg PO DAILY 11/25/19 01/13/20 12/07/19 History Metoprolol [Lopressor TAB] 37.5 mg PO DAILY 11/25/19 01/13/20 12/07/19 History hydrALAZINE [Apresoline TAB] 10 mg PO BID 11/25/19 01/13/20 12/08/19 History Zolpidem [Ambien] 10 mg PO QHS #30 tab 12/09/19 01/13/20 Unknown Rx Pantoprazole [Protonix TAB] 40 mg PO QDAY #30 tablet 12/15/19 01/13/20 Unknown Rx Aspirin [Aspirin BABY CHEW TAB] 81 mg PO QDAY 01/13/20 01/13/20 Unknown History Sennosides [Senna] 8.6 mg PO BID 01/13/20 01/13/20 Unknown History Active Meds: Active Medications Fentanyl (Sublimaze) 25 mcg IV ONCE PRN PRN Reason: Chest Pain Last Admin: 01/13/20 05:44 Dose: 25 mcg Documented by: Sodium Chloride (Nacl 0.9% 1000 Ml) 1,000 mls @ 100 mls/hr IV DIRECT [facility] Last Admin: 01/13/20 06:27 Dose: 100 mls/hr Documented by: Morphine Sulfate (Morphine) 2 mg IV Q5MIN PRN PRN Reason: Chest Pain Last Admin: 01/13/20 09:44 Dose: 2 mg Documented by: Nitroglycerin (Nitrostat) 0.4 mg SL Q5M PRN PRN Reason: Chest Pain Pantoprazole Sodium (Protonix) 40 mg IV BID [facility] Last Admin: 01/13/20 09:53 Dose: 40 mg Documented by: Sodium Chloride (Sodium Chloride Flush Syringe 10 Ml) 10 ml IV PRN PRN PRN Reason: LINE FLUSH Physical Examination Vital Signs Temp Pulse Resp BP Pulse Ox 98.3 F 132 H 18 131/95 98 01/13/20 03:15 01/13/20 03:15 01/13/20 03:15 01/13/20 03:15 01/13/20 03:15 Results 01/13/20 06:49 01/13/20 06:49 CBC 01/13/20 01/13/20 Range/Units 03:24 06:49 WBC 6.1 5.6 (4.5-11.0) K/mm3 RBC 3.76 3.79 (3.65-5.03) M/mm3 Hgb 9.7 L 9.7 L (11.8-15.2) gm/dl Hct 30.4 L 30.5 L (35.5-45.6) % Plt Count 552 H 529 H (140-440) K/mm3 Lymph # 0.7 L 0.7 L (1.2-5.4) K/mm3 [place] # 0.1 0.1 (0.0-0.8) K/mm3 Eos # 0.0 0.0 (0.0-0.4) K/mm3 Baso # 0.1 0.1 (0.0-0.1) K/mm3 Comprehensive Metabolic Panel 01/13/20 01/13/20 Range/Units 03:24 06:49 Sodium 137 136 L (137-145) mmol/L Potassium 4.0 4.8 (3.6-5.0) mmol/L Chloride 96.5 L 98.0 (98-107) mmol/L Carbon Dioxide 27 25 (22-30) mmol/L BUN 10 10 (9-20) mg/dL Creatinine 0.5 L 0.6 L (0.8-1.5) mg/dL Glucose 123 H 108 H (75-100) mg/dL Calcium 9.2 9.1 (8.4-10.2) mg/dL Assessment and Plan full consult dictated thanks
--- NOTE | 2020-01-13 11:12 | Consultation ---
CARDIOLOGY CONSULTATION REFERRING PHYSICIAN: Dr. Dallas Escamilla. REASON FOR CONSULTATION: Advice and opinion regarding chest pain. HISTORY OF PRESENT ILLNESS: The patient is a pleasant 64-year-old -[place] gentleman seen in the Emergency Room with a known history of hypertension, congestive heart failure, lung cancer, peptic ulcer disease, presenting with abdominal pain, chest pain. States he is indicating was sitting on his toilet seat and had shortness of breath. Had a pulmonary embolus about a week ago, been placed on Eliquis, has been having left-sided chest pain with palpitations. Indicates he has had some nausea and states he has been vomiting blood. He also has anxiety. History of lung cancer and has been on chemotherapy. Since arrival in the Emergency Room, he is feeling much better. Questionable history of hematemesis. On approach, he denies any chest pain. At this point, feels much better. No syncope or presyncope. Does have a complaint of dizziness, lightheadedness from time to time. No fevers or chills. PAST MEDICAL HISTORY: As aforementioned. SOCIAL HISTORY: Does drink, but quit smoking 5 years ago. FAMILY HISTORY: No family history of premature heart disease. ALLERGIES: PENICILLIN. MEDICATIONS: Inpatient and outpatient medications reviewed. REVIEW OF SYSTEMS: As per HPI. PHYSICAL EXAMINATION: VITAL SIGNS: Heart rate is tele reveals sinus rhythm in the 95-110 range. No dysrhythmias. Respiration rate 16, O2 sats 96% on room air, blood pressure is 120/90. He is afebrile. HEENT: Sclerae are anicteric. NECK: Supple, no masses, no JVD. CHEST: Clear to auscultation bilaterally. Good air movement. CARDIOVASCULAR: Regular S1, S2. ABDOMEN: Soft, nontender, nondistended. Normoactive bowel sounds in upper quadrants. No mass or bruits. EXTREMITIES: No cyanosis, clubbing or edema. Good peripheral pulses. SKIN: Intact. No rashes. IMAGING DATA: ECG reveals sinus tachycardia, LVH, no acute ST segment shift. CT chest reveals no evidence of pulmonary embolus. Multiple pleural base left lung masses. Scattered low density hepatic lesions. LABORATORY DATA: Hemoglobin 9.7, hematocrit 30.5, platelets 529. Sodium 136, potassium 4.8, creatinine 0.6. Troponin negative x 2. ASSESSMENT AND PLAN: The patient is a pleasant 64-year-old -[place] gentleman. 1. Atypical chest pain and abdominal pain. Cardiac enzymes are negative x 2. EKG is nonacute. He appears volume depleted. Questionable GI bleed, recent pulmonary embolus, on Eliquis. At this point, he states he is feeling much better. I am unclear regarding pleural base left lung lesions. Apparently, he has history of lung cancer and chemotherapy. He is a poor historian. Consider pulmonary consultation. Has seen Gastroenterology in this hospital before. Given questionable active GI bleed, we would withhold aspirin and Eliquis. Recommend pulmonary evaluation. He is on IV PPI, which I agree with. Recommend IV fluids. We will check echocardiogram. [facility] We will follow along with you. Thank you for this consultation. JOB# [id number] SHELLY/JANE
--- NOTE | 2020-01-13 13:23 | Gastroenterology Consultation ---
History of Present Illness - Reason for Consult Consult date: 01/13/20 Possible GI Bleed Requesting physician: AFSHAN GUILLERMO - History of Present Illness The patient is a 64 yo male admitted multiple times with N/V/hematemesis. He has documented severe (LA Grade D) erosive esophagitis by EGD 11/2019. He usually receives healthcare at the [facility] (by his report) and those records are not available. He was admitted with an episode of syncope at home after a BM. Since that time, he has not had syncope. He has been evaluated by Cardiology (normal EKG/Trop) and a CTA was (-) for PE (he has a hx of this "a week ago" and is on Eliquis. In addition, he states he rec'd chemo at the [facility] this past week for his recurrent lung cancer. He has a hx of EtOH abuse, and states he was drinking this week, though he can't quantify the amount. He has had no melena or hematochezia on the medical floor. His hct is stable over the past month, and he has not rec'd a transfusion. Past History Past Medical History: cancer (Lung cancer with ?recurrent 2020 (in lungs/liver) being treated at [facility] (no records available)), heart failure, hypertension, pulmonary embolism, other (Lung cancer, peptic ulcer disease, history of GI bleed) Past Surgical History: No surgical history Social history: no significant social history, smoking (Quit tobacco use 5 years ago), alcohol abuse Family history: no significant family history Medications and Allergies Allergies Allergy/AdvReac Type Severity Reaction Status Date / Time Penicillins Allergy Unknown Verified 12/22/19 05:13 Home Medications Medication Instructions Recorded Confirmed Last Taken Type Gabapentin [Neurontin] 600 mg PO BID 11/25/19 01/13/20 12/07/19 History Isosorbide Mononitrate 30 mg PO DAILY 11/25/19 01/13/20 12/07/19 History Metoprolol [Lopressor TAB] 37.5 mg PO DAILY 11/25/19 01/13/20 12/07/19 History hydrALAZINE [Apresoline TAB] 10 mg PO BID 11/25/19 01/13/20 12/08/19 History Zolpidem [Ambien] 10 mg PO QHS #30 tab 12/09/19 01/13/20 Unknown Rx Pantoprazole [Protonix TAB] 40 mg PO QDAY #30 tablet 12/15/19 01/13/20 Unknown Rx Aspirin [Aspirin BABY CHEW TAB] 81 mg PO QDAY 01/13/20 01/13/20 Unknown History Sennosides [Senna] 8.6 mg PO BID 01/13/20 01/13/20 Unknown History Active Meds: Active Medications Fentanyl (Sublimaze) 25 mcg IV ONCE PRN PRN Reason: Chest Pain Last Admin: 01/13/20 05:44 Dose: 25 mcg Documented by: Sodium Chloride (Nacl 0.9% 1000 Ml) 1,000 mls @ 100 mls/hr IV DIRECT [facility] Last Admin: 01/13/20 06:27 Dose: 100 mls/hr Documented by: Morphine Sulfate (Morphine) 2 mg IV Q5MIN PRN PRN Reason: Chest Pain Last Admin: 01/13/20 09:44 Dose: 2 mg Documented by: Nitroglycerin (Nitrostat) 0.4 mg SL Q5M PRN PRN Reason: Chest Pain Pantoprazole Sodium (Protonix) 40 mg IV BID [facility] Last Admin: 01/13/20 09:53 Dose: 40 mg Documented by: Sodium Chloride (Sodium Chloride Flush Syringe 10 Ml) 10 ml IV PRN PRN PRN Reason: LINE FLUSH I HAVE REVIEWED/RECONCILED MEDICATIONS Review of Systems - Review of Systems All systems: negative (as noted in the HPI.) Exam - Constitutional Vital Signs: Temp Pulse Resp BP Pulse Ox 98.5 F 114 H 21 128/87 96 01/13/20 10:36 01/13/20 10:36 01/13/20 10:36 01/13/20 10:36 01/13/20 10:36 General appearance: no acute distress, disheveled - EENT Eyes: PERRL, EOM intact ENT: hearing intact, clear oral mucosa - Neck Neck: supple, normal ROM - Respiratory Respiratory effort: normal Respiratory: right: other (Port R chest wall), bilateral: CTA - Cardiovascular Rhythm: regular Heart Sounds: Present: S1 & S2 Extremities: no ischemia, No edema - Gastrointestinal General gastrointestinal: Present: soft, non-tender, non-distended - Integumentary Integumentary: Present: clear, warm, dry - Neurologic Neurological: alert and oriented x3 - Labs CBC & Chem 7: 01/13/20 06:49 01/13/20 06:49 Lab Results: Laboratory Results - last 24 hr 01/13/20 01/13/20 01/13/20 03:24 03:24 06:49 WBC 6.1 RBC 3.76 Hgb 9.7 L Hct 30.4 L MCV 81 L MCH 26 L MCHC 32 RDW 18.6 H Plt Count 552 H Lymph % (Auto) 11.7 L [place] % (Auto) 1.1 Eos % (Auto) 0.4 Baso % (Auto) 0.8 Lymph # 0.7 L [place] # 0.1 Eos # 0.0 Baso # 0.1 Seg Neutrophils % 86.0 H Seg Neutrophils # 5.2 Sodium 137 Potassium 4.0 Chloride 96.5 L Carbon Dioxide 27 Anion Gap 18 BUN 10 Creatinine 0.5 L Estimated GFR > 60 BUN/Creatinine Ratio 20 Glucose 123 H Calcium 9.2 Troponin T < 0.010 < 0.010 01/13/20 01/13/20 01/13/20 06:49 06:49 10:26 WBC 5.6 RBC 3.79 Hgb 9.7 L Hct 30.5 L MCV 81 L MCH 26 L MCHC 32 RDW 18.6 H Plt Count 529 H Lymph % (Auto) 11.9 L [place] % (Auto) 1.5 Eos % (Auto) 0.2 Baso % (Auto) 2.0 H Lymph # 0.7 L [place] # 0.1 Eos # 0.0 Baso # 0.1 Seg Neutrophils % 84.4 H Seg Neutrophils # 4.7 Sodium 136 L Potassium 4.8 Chloride 98.0 Carbon Dioxide 25 Anion Gap 18 BUN 10 Creatinine 0.6 L Estimated GFR > 60 BUN/Creatinine Ratio 17 Glucose 108 H Calcium 9.1 Troponin T < 0.010 Assessment and Plan - Patient Problems (1) Esophagitis Current Visit: Yes Status: Acute Plan to address problem: - Severe erosive esophagitis (EGD 11/2019) and not clear patient is compliant with protonix; he is not compliant with f/u in our office. - Will resume protonix, and advance to full liquid diet (as N/V has now resolved). - If patient truly on chemo (no records) then this may be compounding the esophagitis, as is EtOH abuse with chronic emesis/regurgitation. - OK to continue ASA or Eliquis, but would avoid combination if possible. (2) Pulmonary embolism Current Visit: Yes Status: Acute Plan to address problem: - CTA this admit negative; no records from [facility] to document his recent PE. (3) Lung cancer Current Visit: No Status: Acute Plan to address problem: - Patient has port in chest wall, and states chemo this past week; poor historian however. - Would be beneficial if he could bring records with him to hospital visits. (4) Alcohol dependence Current Visit: No Status: Chronic
--- NOTE | 2020-01-13 14:53 | Progress Note ---
Assessment and Plan Total Time Spent with Patient (Minutes): 27 - Patient Problems (1) Chest pain Current Visit: Yes Status: Acute Plan to address problem: Chest pain nonexertional. Patient has a history of coronary artery disease. No changes via EKG no changes via cardiac isoenzymes now. The description of patient's pain seems more secondary to GI issues with erosive esophagitis and gastritis. This with the GI bleed. Patient also very weak cannot tolerate stress test at this point anyway. We will correct hematemesis first and then present to have stress test done. Patient very uncomfortable now still throwing up vomiting. Still nauseated. In my threshold for cardiac chest pain is lower. (2) Esophagitis Current Visit: Yes Status: Acute Plan to address problem: Patient with erosive esophagitis peptic ulcer disease upper GI bleed history. Patient has history of alcohol use as well as the recent use of Eliquis. Most likely etiology. Will discontinue Eliquis. No PE was found on CTA. Treat IV Protonix. Discontinue alcohol no NSAIDs. Patient will be n.p.o. for possible EGD in a.m. Patient also has negative occult blood stool x1. Will also give Compazine for nausea 10 mg IV every 6 hours as needed (3) Full code status Current Visit: Yes Status: Acute (4) History of pulmonary embolism Current Visit: Yes Status: Acute Plan to address problem: No pulmonary embolus on CT angiogram. Will hold Eliquis anyway secondary to GI bleed. May follow with bilateral ultrasound if necessary. Will more stable. (5) Syncope Current Visit: Yes Status: Acute Plan to address problem: Syncope most likely secondary to prodromal nausea and vomiting. Volume loss fro m nausea and vomiting. Increased weakness electrolyte imbalance. (6) Lung cancer Current Visit: No Status: Acute Plan to address problem: Patient with history of lung cancer can follow-up outpatient with oncology. Patient sees oncology at the [facility]. (7) Ulcerative esophagitis Current Visit: No Status: Acute (8) CAD (coronary artery disease) Current Visit: No Status: Chronic Qualifiers: Coronary Disease-Associated Artery/Lesion type: [place] artery [place] vs. transplanted heart: [place] heart Plan to address problem: At present we will set up for stress test. Since past history of coronary disease. Initial work-up unremarkable. History Interval history: Patient 64-year-old male with history of hypertension, congestive heart failure, recent Adalberto diagnosed at the [facility] with a pulmonary embolism started on Eliquis. Lung cancer presented with a chief complaint of nausea and vomiting with hematemesis x1 to 2 days. Patient states he was using the bathroom having a bowel movement and was straining. When he went to stand up he had a syncopal episode. No prodromal symptoms were noted per patient. Stated he had been a little dizzy the previous 1 to 2 days. But no chest pain at that time. Patient also had an accompanying chest and shoulder pain nonexertional. Worse with the nausea vomiting. No clear indication of shortness of breath dyspnea on exertion. Patient states he is just very weak. Alert and oriented x3. Difficulty to do chores because of weakness. Patient at present states this is happened before and he usually takes Compazine for his nausea. Patient's nausea was not controlled today with Zofran. Otherwise no new concerns at this particular time. Patient currently is very weak and does not appear stable enough to undergo stress test at this particular time. Also still has hematemesis x2. CT scan abdomen unremarkable. Hospitalist Physical - Constitutional Vitals: Temp Pulse Resp BP Pulse Ox 98.5 F 114 H 21 128/87 96 01/13/20 10:36 01/13/20 13:40 01/13/20 10:36 01/13/20 10:36 01/13/20 10:36 General appearance: Present: mild distress, well-nourished, other (Distress secondary to the nausea.) - EENT Eyes: Present: PERRL, EOM intact ENT: hearing intact, clear oral mucosa, dentition normal - Neck Neck: Present: supple, normal ROM - Respiratory Respiratory: bilateral: CTA - Cardiovascular Rhythm: regular - Extremities Extremities: no ischemia, pulses intact, pulses symmetrical, No edema, normal temperature, normal color, Full ROM Extremity abnormal: other (Generalized weakness pulses seem intact no edema.) Peripheral Pulses: within normal limits - Abdominal General gastrointestinal: tender, normal bowel sounds, other (Tenderness and pain most likely midepigastric area. Cannot really be palpated to cause pain. Patient also complains of stringy bowel movements.), no hepatomegaly, no splenomegaly Localized gastrointestinal: tender: epigastric periumbilical - Integumentary Integumentary: Present: clear, warm, dry - Psychiatric Psychiatric: appropriate mood/affect, intact judgment & insight - Neurologic Neurologic: CNII-XII intact, moves all extremities HEART Score - HEART Score Troponin: Troponin T < 0.010 ng/mL (0.00-0.029) 01/13/20 13:38 Results - Labs CBC & Chem 7: 01/13/20 06:49 01/13/20 06:49 Labs: Laboratory Last Values WBC 5.6 K/mm3 (4.5-11.0) 01/13/20 06:49 RBC 3.79 M/mm3 (3.65-5.03) 01/13/20 06:49 Hgb 9.7 gm/dl (11.8-15.2) L 01/13/20 06:49 Hct 30.5 % (35.5-45.6) L 01/13/20 06:49 MCV 81 fl (84-94) L 01/13/20 06:49 MCH 26 pg (28-32) L 01/13/20 06:49 MCHC 32 % (32-34) 01/13/20 06:49 RDW 18.6 % (13.2-15.2) H 01/13/20 06:49 Plt Count 529 K/mm3 (140-440) H 01/13/20 06:49 Lymph % (Auto) 11.9 % (13.4-35.0) L 01/13/20 06:49 [place] % (Auto) 1.5 % (0.0-7.3) 01/13/20 06:49 Eos % (Auto) 0.2 % (0.0-4.3) 01/13/20 06:49 Baso % (Auto) 2.0 % (0.0-1.8) H 01/13/20 06:49 Lymph # 0.7 K/mm3 (1.2-5.4) L 01/13/20 06:49 [place] # 0.1 K/mm3 (0.0-0.8) 01/13/20 06:49 Eos # 0.0 K/mm3 (0.0-0.4) 01/13/20 06:49 Baso # 0.1 K/mm3 (0.0-0.1) 01/13/20 06:49 Seg Neutrophils % 84.4 % (40.0-70.0) H 01/13/20 06:49 Seg Neutrophils # 4.7 K/mm3 (1.8-7.7) 01/13/20 06:49 Sodium 136 mmol/L (137-145) L 01/13/20 06:49 Potassium 4.8 mmol/L (3.6-5.0) 01/13/20 06:49 Chloride 98.0 mmol/L (98-107) 01/13/20 06:49 Carbon Dioxide 25 mmol/L (22-30) 01/13/20 06:49 Anion Gap 18 mmol/L 01/13/20 06:49 BUN 10 mg/dL (9-20) 01/13/20 06:49 Creatinine 0.6 mg/dL (0.8-1.5) L 01/13/20 06:49 Estimated GFR > 60 ml/min 01/13/20 06:49 BUN/Creatinine Ratio 17 % 01/13/20 06:49 Glucose 108 mg/dL (75-100) H 01/13/20 06:49 Calcium 9.1 mg/dL (8.4-10.2) 01/13/20 06:49 Troponin T < 0.010 ng/mL (0.00-0.029) 01/13/20 13:38 Microbiology: Microbiology 01/13/20 05:05 Stool Stool Occult Blood (GORDY) - Final Sandoval/IV: Voiding Method Toilet IV Catheter Type [Right INT / Saline Lock Antecubital] IV Catheter Type [Right Chest] Infusaport Active Medications - Current Medications Current Medications: Generic Name Dose Route Start Last Admin Trade Name Freq PRN Reason Stop Dose Admin Fentanyl 25 mcg 01/13/20 04:10 01/13/20 05:44 Sublimaze IV 25 mcg ONCE PRN Administration Chest Pain Sodium Chloride 1,000 mls @ 100 mls/hr 01/13/20 06:00 01/13/20 06:27 Nacl 0.9% 1000 Ml IV 100 mls/hr DIRECT KENNETH Administration Morphine Sulfate 2 mg 01/13/20 05:54 01/13/20 09:44 Morphine IV 2 mg Q5MIN PRN Administration Chest Pain Multivitamins/Minerals 1 each 01/14/20 10:00 Theragran-M Tab PO QDAY KENNETH Nitroglycerin 0.4 mg 01/13/20 05:54 Nitrostat SL Q5M PRN Chest Pain Pantoprazole Sodium 40 mg 01/13/20 10:00 01/13/20 09:53 Protonix IV 40 mg BID KENNETH Administration Sodium Chloride 10 ml 01/13/20 05:54 Sodium Chloride Flush Syringe 10 Ml IV PRN PRN LINE FLUSH
[2020-01-13] MEDS: ZOLPIDEM 5 MG TAB PO PRN (21:38)
[2020-01-14] MEDS: MORPHINE 4 MG/1 ML INJ IV PRN ×5 (03:35→23:00)
[2020-01-14] MEDS: SODIUM CHLORIDE 0.9% 1000 ML 1,000 ML IV SCH ×3 (03:44→23:55)
[2020-01-14 07:16] LABS: Basophils % (Auto) 1.2 % (0.0-1.8); Eosinophils # (Auto) 0.1 K/mm3 (0.0-0.4); Hematocrit 28.8 % (35.5-45.6); Lymphocytes % (Auto) 26.4 % (13.4-35.0); Mean Corpuscular HGB Conc 31 % (32-34); Mean Corpuscular Volume 82 fl (84-94); Monocytes # (Auto) 0.1 K/mm3 (0.0-0.8); Monocytes % (Auto) 1.5 % (0.0-7.3); Platelet Count 501 K/mm3 (140-440); Red Blood Count 3.51 M/mm3 (3.65-5.03); Red Cell Distribution Width 18.2 % (13.2-15.2)
--- NOTE | 2020-01-14 07:50 | Progress Note ---
Assessment and Plan Assessment and plan: 64-year-old -[place] male with known history of hypertension, CHF, lung cancer, peptic ulcer disease sent into the emergency room today complaining of chest pain and syncope. Patient indicates that he was sitting on the toilet seat today and had a syncopal episode while he was straining. He had also been feeling dizzy prior to the syncopal episode. Patient states he was recently diagnosed with pulmonary embolism at the [facility] about a week ago and has been placed on Eliquis. He has been having left-sided chest pain after the syncopal episode today with associated palpitations. There has been no radiation of his chest pain. He has had some nausea and vomiting and indicates he has been vomiting blood. He denies any bright red blood per rectum, he denies any hematuria or dysuria. He also indicates that he has palpitations when he has his anxiety. Patient has history of lung cancer and had been on chemotherapy. Upon arrival in the emergency room found to be slightly tachycardic, CT angiogram of the chest was unremarkable. Was also found to be having hematemesis. Atypical Chest Pain secondary to Esophagitis * Per GI Severe erosive esophagitis (EGD 11/2019) and not clear patient is compliant with protonix; he is not compliant with f/u in our office. - Will resume protonix, and advance to full liquid diet (as N/V has now resolved). - If patient truly on chemo (no records) then this may be compounding the esophagitis, as is EtOH abuse with chronic emesis/regurgitation. - OK to continue ASA or Eliquis, but would avoid combination if possible. * Per cardiology * No plan for Hx Pulmonary Embolisim * CTA Negative this admission, but patient reports Record from [facility] to document * h/o recently diagnosed pulmonary embolism at [facility], anticoagulated with Eliquis (although chest CTA this admission is negative for PE), Left Small to moderate Pleural effusion * Pulmonary consult * Patient has port in chest wall, and states chemo this past week; poor historian however. * Would be beneficial if he could bring records with him to hospital visits. Lung CA * h/o recently diagnosed pulmonary embolism at [facility], anticoagulated with Eliquis (although chest CTA this admission is negative for PE), PUD Acute on chronic Respiratory failure: Secondary to mild pulmonary edema. Pulm consult Tobacco use disorder: 15 MINS OF tobacco cessation counselling Tachycardia Esophagitits- severe with GI bleed * N/V improved, Continue protonix, advance diet, concern that if patient is on chemo it maybe complicating esophagitis Anemia: Monitor PUD: Continue PPI, Per GI oK to continue ASA or Eliquis, but would avoid combination if possible. Eliquis and ASA currently held. Alcohol Dependance: per hx, not actively Deconditioned: Outpatient rehabd History Interval history: Patient seen and examined, No new complaints, tolerating some diet. Hospitalist Physical - Physical exam Narrative exam: General appearance: Present: mild distress, well-nourished, - EENT Eyes: Present: PERRL, EOM intact ENT: hearing intact, clear oral mucosa, dentition normal - Neck Neck: Present: supple, normal ROM - Respiratory Respiratory: bilateral: CTA - Cardiovascular Rhythm: regular - Extremities Extremities: no ischemia, pulses intact, pulses symmetrical, No edema, normal temperature, normal color, Full ROM Extremity abnormal: other (Generalized weakness pulses seem intact no edema.) Peripheral Pulses: within normal limits - Abdominal General gastrointestinal: tender, normal bowel sounds, other (Tenderness and pain most likely midepigastric area. Cannot really be palpated to cause pain. Patient also complains of stringy bowel movements.), no hepatomegaly, no splenomegaly Localized gastrointestinal: tender: epigastric periumbilical - Integumentary Integumentary: Present: clear, warm, dry - Psychiatric Psychiatric: appropriate mood/affect, intact judgment & insight - Neurologic Neurologic: CNII-XII intact, moves all extremities - Constitutional Vitals: Temp Pulse Resp BP Pulse Ox 97.8 F 104 H 18 119/82 97 01/14/20 03:52 01/14/20 05:00 01/14/20 05:17 01/14/20 03:52 01/14/20 03:52 General appearance: Present: mild distress, well-nourished, other (Distress secondary to the nausea.) HEART Score - HEART Score Troponin: Troponin T < 0.010 ng/mL (0.00-0.029) 01/13/20 13:38 Results - Labs CBC & Chem 7: 01/15/20 04:08 01/15/20 04:08 Labs: Laboratory Last Values WBC 3.7 K/mm3 (4.5-11.0) L 01/14/20 06:58 RBC 3.51 M/mm3 (3.65-5.03) L 01/14/20 06:58 Hgb 9.0 gm/dl (11.8-15.2) L 01/14/20 06:58 Hct 28.8 % (35.5-45.6) L 01/14/20 06:58 MCV 82 fl (84-94) L 01/14/20 06:58 MCH 26 pg (28-32) L 01/14/20 06:58 MCHC 31 % (32-34) L 01/14/20 06:58 RDW 18.2 % (13.2-15.2) H 01/14/20 06:58 Plt Count 501 K/mm3 (140-440) H 01/14/20 06:58 Lymph % (Auto) 26.4 % (13.4-35.0) 01/14/20 06:58 [place] % (Auto) 1.5 % (0.0-7.3) 01/14/20 06:58 Eos % (Auto) 2.0 % (0.0-4.3) 01/14/20 06:58 Baso % (Auto) 1.2 % (0.0-1.8) 01/14/20 06:58 Lymph # 1.0 K/mm3 (1.2-5.4) L 01/14/20 06:58 [place] # 0.1 K/mm3 (0.0-0.8) 01/14/20 06:58 Eos # 0.1 K/mm3 (0.0-0.4) 01/14/20 06:58 Baso # 0.0 K/mm3 (0.0-0.1) 01/14/20 06:58 Seg Neutrophils % 68.9 % (40.0-70.0) 01/14/20 06:58 Seg Neutrophils # 2.6 K/mm3 (1.8-7.7) 01/14/20 06:58 Sodium 136 mmol/L (137-145) L 01/13/20 06:49 Potassium 4.8 mmol/L (3.6-5.0) 01/13/20 06:49 Chloride 98.0 mmol/L (98-107) 01/13/20 06:49 Carbon Dioxide 25 mmol/L (22-30) 01/13/20 06:49 Anion Gap 18 mmol/L 01/13/20 06:49 BUN 10 mg/dL (9-20) 01/13/20 06:49 Creatinine 0.6 mg/dL (0.8-1.5) L 01/13/20 06:49 Estimated GFR > 60 ml/min 01/13/20 06:49 BUN/Creatinine Ratio 17 % 01/13/20 06:49 Glucose 108 mg/dL (75-100) H 01/13/20 06:49 Calcium 9.1 mg/dL (8.4-10.2) 01/13/20 06:49 Troponin T < 0.010 ng/mL (0.00-0.029) 01/13/20 13:38 Microbiology: Microbiology 01/13/20 05:05 Stool Stool Occult Blood (GORDY) - Final Sandoval/IV: Voiding Method Toilet IV Catheter Type [Right INT / Saline Lock Antecubital] IV Catheter Type [Right Chest] Infusaport Active Medications - Current Medications Current Medications: Generic Name Dose Route Start Last Admin Trade Name Freq PRN Reason Stop Dose Admin Fentanyl 25 mcg 01/13/20 04:10 01/13/20 05:44 Sublimaze IV 25 mcg ONCE PRN Administration Chest Pain Sodium Chloride 1,000 mls @ 100 mls/hr 01/13/20 06:00 01/14/20 03:44 Nacl 0.9% 1000 Ml IV 100 mls/hr DIRECT KENNETH Administration Morphine Sulfate 2 mg 01/13/20 05:54 01/14/20 05:17 Morphine IV 2 mg Q5MIN PRN Administration Chest Pain Multivitamins/Minerals 1 each 01/14/20 10:00 Theragran-M Tab PO QDAY KENNETH Nitroglycerin 0.4 mg 01/13/20 05:54 Nitrostat SL Q5M PRN Chest Pain Pantoprazole Sodium 40 mg 01/13/20 10:00 01/13/20 21:39 Protonix IV 40 mg BID KENNETH Administration Sodium Chloride 10 ml 01/13/20 05:54 01/14/20 03:39 Sodium Chloride Flush Syringe 10 Ml IV 10 ml PRN PRN Administration LINE FLUSH Zolpidem Tartrate 10 mg 01/13/20 20:57 01/13/20 21:38 Ambien PO 10 mg QHS PRN Administration Sleep
[2020-01-14 07:55] LABS: BUN/Creatinine Ratio 12; Blood Urea Nitrogen 7 mg/dL (9-20); Hemolysis Index 5
[2020-01-14 08:15] LABS: Albumin 3.6 g/dL (3.9-5); Prealbumin 0.221 g/L (0.200-0.400)
--- NOTE | 2020-01-14 10:22 | Progress Note ---
<KEELEY KANGKatie GRIFFITHS - Last Filed: 01/15/20 08:50> Assessment and Plan Pt presented with atypical chest pain in setting of GI bleed, esophagitis, lung cancer, h/o recently diagnosed pulmonary embolism at [facility], anticoagulated with Eliquis (although chest CTA this admission is negative for PE), PUD. Chest pain is currently resolved, AMI r/o. Await echo. No plans for ischemic evaluation at this time - can consider as OP once medically stabilized. Per GI team - Severe erosive esophagitis (EGD 11/2019) and not clear patient is compliant with protonix; he is not compliant with f/u in our office. Will resume protonix, and advance to full liquid diet (as N/V has now resolved). If patient truly on chemo (no records) then this may be compounding the esophagitis, as is EtOH abuse with chronic emesis/regurgitation. OK to continue ASA or Eliquis, but would avoid combination if possible. Eliquis and ASA currently held. Recommend resumption of Eliquis in setting of recently diagnosed PE. The patient has been seen in conjunction with Dr. Gutierrez who agrees with the assessment and plan of care. - Patient Problems (1) Chest pain Current Visit: Yes Status: Resolved (2) Esophagitis Current Visit: Yes Status: Acute (3) GI bleed Current Visit: Yes Status: Acute Qualifiers: GI bleed type/associated pathology: gastrointestinal hemorrhage with hematemesis Qualified Code(s): K92.0 - Hematemesis (4) History of pulmonary embolism Current Visit: Yes Status: Chronic (5) Lung cancer Current Visit: Yes Status: Chronic (6) Hypertension Current Visit: Yes Status: Chronic Qualifiers: Hypertension type: essential hypertension Qualified Code(s): I10 - Essential (primary) hypertension (7) ETOH abuse Current Visit: Yes Status: Chronic (8) PUD (peptic ulcer disease) Current Visit: Yes Status: Chronic Subjective Date of service: 01/14/20 Principal diagnosis: GI bleed; lung CA Interval history: pt resting in bed, no current cardiac complaints. in SR on tele. Objective Last Vital Signs Temp 98.6 F 01/14/20 08:13 Pulse 111 H 01/14/20 08:13 Resp 18 01/14/20 08:13 BP 121/82 01/14/20 08:13 Pulse Ox 97 05/26/20 08:13 - Physical Examination General: No Apparent Distress HEENT: Positive: PERRL, Normocephaly, Mucus Membranes Moist Neck: Positive: neck supple, trachea midline Cardiac: Positive: Reg Rate and Rhythm, S1/S2 Lungs: Positive: clear to auscultation Neuro: Positive: Grossly Intact Abdomen: Negative: Tender Skin: Negative: Rash Musculoskeletal: No Pain Extremities: Absent: edema - Labs and Meds CBC 01/14/20 Range/Units 06:58 WBC 3.7 L (4.5-11.0) K/mm3 RBC 3.51 L (3.65-5.03) M/mm3 Hgb 9.0 L (11.8-15.2) gm/dl Hct 28.8 L (35.5-45.6) % Plt Count 501 H (140-440) K/mm3 Lymph # 1.0 L (1.2-5.4) K/mm3 [place] # 0.1 (0.0-0.8) K/mm3 Eos # 0.1 (0.0-0.4) K/mm3 Baso # 0.0 (0.0-0.1) K/mm3 Comprehensive Metabolic Panel 01/14/20 01/14/20 Range/Units 06:58 06:58 Sodium 137 (137-145) mmol/L Potassium 4.5 (3.6-5.0) mmol/L Chloride 100.0 (98-107) mmol/L Carbon Dioxide 27 (22-30) mmol/L BUN 7 L (9-20) mg/dL Creatinine 0.6 L (0.8-1.5) mg/dL Glucose 101 H (75-100) mg/dL Calcium 9.0 (8.4-10.2) mg/dL Albumin 3.6 L (3.9-5) g/dL - Imaging and Cardiology EKG: report reviewed, image reviewed Echo: pending - Telemetry EKG Rhythm: Sinus Rhythm <NIKI GUTIERREZ R - Last Filed: 01/15/20 10:40> Assessment and Plan chest pain secondary to GI Objective Vital Signs Temp Pulse Pulse Resp Resp Resp BP 01/15/20 04:00 109 H 01/15/20 03:44 97.8 F 20 125/78 01/15/20 00:29 01/14/20 23:37 98.3 F 102 H 20 01/14/20 19:29 01/14/20 19:14 97.3 F L 112 H 20 118/80 01/14/20 16:15 98.6 F 110 H 20 127/86 01/14/20 13:00 111 H 101 H 18 18 01/14/20 12:48 97.7 F 103 H 18 132/79 BP Pulse Ox 01/15/20 04:00 99 01/15/20 03:44 01/15/20 00:29 122/87 01/14/20 23:37 99 01/14/20 19:29 118/80 01/14/20 19:14 98 01/14/20 16:15 97 01/14/20 13:00 01/14/20 12:48 98 - Labs and Meds Cardiac Enzymes 01/14/20 Range/Units 15:58 Lactate Dehydrogenase 143 (91-180) units/L Coagulation 01/14/20 Range/Units 16:04 PT 13.0 (12.2-14.9) Sec. INR 1.00 (0.87-1.13) CBC 01/15/20 Range/Units 04:08 WBC 4.1 L (4.5-11.0) K/mm3 RBC 3.63 L (3.65-5.03) M/mm3 Hgb 9.4 L (11.8-15.2) gm/dl Hct 29.6 L (35.5-45.6) % Plt Count 509 H (140-440) K/mm3 Comprehensive Metabolic Panel 01/15/20 Range/Units 04:08 Sodium 139 (137-145) mmol/L Potassium 4.2 (3.6-5.0) mmol/L Chloride 100.2 (98-107) mmol/L Carbon Dioxide 25 (22-30) mmol/L BUN 8 L (9-20) mg/dL Creatinine 0.6 L (0.8-1.5) mg/dL Glucose 94 (75-100) mg/dL Calcium 9.0 (8.4-10.2) mg/dL
[2020-01-14] MEDS: PANTOPRAZOLE 40 MG INJ IV SCH (11:42)
[2020-01-14] MEDS: MULTIVITAMINS,THER W-MINERALS TAB PO SCH (11:43)
[2020-01-14] MEDS: PANTOPRAZOLE 40 MG TAB PO SCH ×2 (12:00→21:09)
--- NOTE | 2020-01-14 13:18 | Consultation ---
History of Present Illness Consult date: 01/14/20 Requesting physician: RUSLAN WILHELM Reason for consult: pleural effusion, other (Lung Cancer; ? Malignant effusion) History of present illness: PULMONARY/CCM CONSULT NOTE (Full dictation # [id number]) Please see dictated notes for full details - thoracentesis ordered for cytology - bridge anticoagulation Past History Past Medical History: cancer (Lung cancer with ?recurrent 2020 (in lungs/liver) being treated at [facility] (no records available)), heart failure, hypertension, pulmonary embolism, other (Lung cancer, peptic ulcer disease, history of GI bleed) Past Surgical History: No surgical history Social history: no significant social history, smoking (Quit tobacco use 5 years ago), alcohol abuse Family history: no significant family history Medications and Allergies Allergies Allergy/AdvReac Type Severity Reaction Status Date / Time Penicillins Allergy Unknown Verified 12/22/19 05:13 Home Medications Medication Instructions Recorded Confirmed Last Taken Type Gabapentin [Neurontin] 600 mg PO BID 11/25/19 01/13/20 12/07/19 History Isosorbide Mononitrate 30 mg PO DAILY 11/25/19 01/13/20 12/07/19 History hydrALAZINE [Apresoline TAB] 10 mg PO BID 11/25/19 01/13/20 12/08/19 History Sennosides [Senna] 8.6 mg PO BID 01/13/20 01/13/20 Unknown History Apixaban [Eliquis] 5 mg PO BID #60 tablet 01/15/20 Unknown Rx Metoprolol [Lopressor TAB] 50 mg PO BID #60 tablet 01/15/20 Unknown Rx Multivitamin Tab W-MINERAL 1 each PO QDAY #30 tablet 01/15/20 Unknown Rx [Multiple Vitamin/Mineral (Theragran M)] Pantoprazole [Protonix TAB] 40 mg PO BID #60 tablet 01/15/20 Unknown Rx Zolpidem [Ambien] 10 mg PO QHS #14 tab 01/15/20 Unknown Rx Active Meds: Active Medications Sodium Chloride (Nacl 0.9% 1000 Ml) 1,000 mls @ 100 mls/hr IV DIRECT KENNETH Last Admin: 01/14/20 03:44 Dose: 100 mls/hr Documented by: Morphine Sulfate (Morphine) 2 mg IV Q5MIN PRN PRN Reason: Chest Pain Last Admin: 01/14/20 11:45 Dose: 2 mg Documented by: Multivitamins/Minerals (Theragran-M Tab) 1 each PO QDAY [facility] Last Admin: 01/14/20 11:43 Dose: 1 each Documented by: Nitroglycerin (Nitrostat) 0.4 mg SL Q5M PRN PRN Reason: Chest Pain Pantoprazole Sodium (Protonix) 40 mg PO BID [facility] Last Admin: 01/14/20 12:00 Dose: Not Given Documented by: Sodium Chloride (Sodium Chloride Flush Syringe 10 Ml) 10 ml IV PRN PRN PRN Reason: LINE FLUSH Last Admin: 01/14/20 03:39 Dose: 10 ml Documented by: Zolpidem Tartrate (Ambien) 10 mg PO QHS PRN PRN Reason: Sleep Last Admin: 01/13/20 21:38 Dose: 10 mg Documented by: Physical Examination Vital signs: Vital Signs Temp Pulse Resp BP Pulse Ox 98.3 F 132 H 18 131/95 98 01/13/20 03:15 01/13/20 03:15 01/13/20 03:15 01/13/20 03:15 01/13/20 03:15 Results - Laboratory Findings CBC and BMP: 01/15/20 04:08 01/15/20 04:08 Abnormal lab findings: Abnormal Labs 01/13/20 01/13/20 01/13/20 03:24 03:24 06:49 WBC RBC Hgb 9.7 L 9.7 L Hct 30.4 L 30.5 L MCV 81 L 81 L MCH 26 L 26 L MCHC RDW 18.6 H 18.6 H Plt Count 552 H 529 H Lymph % (Auto) 11.7 L 11.9 L Baso % (Auto) 2.0 H Lymph # 0.7 L 0.7 L Seg Neutrophils % 86.0 H 84.4 H Sodium Chloride 96.5 L BUN Creatinine 0.5 L Glucose 123 H Albumin 01/13/20 01/14/20 01/14/20 06:49 06:58 06:58 WBC 3.7 L RBC 3.51 L Hgb 9.0 L Hct 28.8 L MCV 82 L MCH 26 L MCHC 31 L RDW 18.2 H Plt Count 501 H Lymph % (Auto) Baso % (Auto) Lymph # 1.0 L Seg Neutrophils % Sodium 136 L Chloride BUN 7 L Creatinine 0.6 L 0.6 L Glucose 108 H 101 H Albumin 01/14/20 06:58 WBC RBC Hgb Hct MCV MCH MCHC RDW Plt Count Lymph % (Auto) Baso % (Auto) Lymph # Seg Neutrophils % Sodium Chloride BUN Creatinine Glucose Albumin 3.6 L
--- NOTE | 2020-01-14 19:55 | Gastroenterology Progress Note ---
Assessment and Plan - Patient Problems (1) Esophagitis Current Visit: Yes Status: Acute Plan to address problem: - Severe erosive esophagitis (EGD 11/2019) and not clear patient is compliant with protonix; he is not compliant with f/u in our office. - Will resume protonix, and advance to regular diet (as N/V has now resolved). - If patient truly on chemo (no records) then this may be compounding the esophagitis, as is EtOH abuse with chronic emesis/regurgitation. - OK to continue ASA or Eliquis, but would avoid combination if possible. - We will sign off; please call if needed. (2) Pulmonary embolism Current Visit: Yes Status: Acute Plan to address problem: - CTA this admit negative; no records from [facility] to document his recent PE. (3) Lung cancer Current Visit: Yes Status: Chronic Plan to address problem: - Patient has port in chest wall, and states chemo this past week; poor historian however. - Would be beneficial if he could bring records with him to hospital visits. (4) Alcohol dependence Current Visit: No Status: Chronic Subjective Date of service: 01/14/20 Principal diagnosis: N/V/Hematemesis Interval history: The patient tolerated a full diet for dinner, and has had no N/V/hematemesis this afternoon. He says his side no longer hurts. Objective - Constitutional Vitals: Temp Pulse Resp BP Pulse Ox 98.6 F 110 H 20 118/80 97 01/14/20 16:15 01/14/20 16:15 01/14/20 16:15 01/14/20 19:29 01/14/20 16:15 General appearance: no acute distress - Respiratory Respiratory effort: normal Respiratory: bilateral: CTA - Cardiovascular Rhythm: regular Heart Sounds: Present: S1 & S2 - Gastrointestinal General gastrointestinal: Present: soft, non-tender, non-distended - Labs CBC & Chem 7: 01/14/20 06:58 01/14/20 06:58 Labs: Laboratory Results - last 24 hr 01/14/20 01/14/20 01/14/20 06:58 06:58 06:58 WBC 3.7 L RBC 3.51 L Hgb 9.0 L Hct 28.8 L MCV 82 L MCH 26 L MCHC 31 L RDW 18.2 H Plt Count 501 H Lymph % (Auto) 26.4 [place] % (Auto) 1.5 Eos % (Auto) 2.0 Baso % (Auto) 1.2 Lymph # 1.0 L [place] # 0.1 Eos # 0.1 Baso # 0.0 Seg Neutrophils % 68.9 Seg Neutrophils # 2.6 PT INR Sodium 137 Potassium 4.5 Chloride 100.0 Carbon Dioxide 27 Anion Gap 15 BUN 7 L Creatinine 0.6 L Estimated GFR > 60 BUN/Creatinine Ratio 12 Glucose 101 H Calcium 9.0 Lactate Dehydrogenase Albumin 3.6 L Prealbumin 0.221 01/14/20 01/14/20 15:58 16:04 WBC RBC Hgb Hct MCV MCH MCHC RDW Plt Count Lymph % (Auto) [place] % (Auto) Eos % (Auto) Baso % (Auto) Lymph # [place] # Eos # Baso # Seg Neutrophils % Seg Neutrophils # PT 13.0 INR 1.00 Sodium Potassium Chloride Carbon Dioxide Anion Gap BUN Creatinine Estimated GFR BUN/Creatinine Ratio Glucose Calcium Lactate Dehydrogenase 143 Albumin Prealbumin
[2020-01-14] MEDS: ZOLPIDEM 5 MG TAB PO PRN (21:09)
[2020-01-15] MEDS: MORPHINE 4 MG/1 ML INJ IV PRN ×2 (01:22→13:10)
[2020-01-15 04:37] LABS: Hematocrit 29.6 % (35.5-45.6); Hemoglobin 9.4 gm/dl (11.8-15.2); Mean Corpuscular HGB Conc 32 % (32-34); Mean Corpuscular Volume 82 fl (84-94); Platelet Count 509 K/mm3 (140-440); Red Blood Count 3.63 M/mm3 (3.65-5.03); Red Cell Distribution Width 18.5 % (13.2-15.2)
[2020-01-15 04:55] LABS: BUN/Creatinine Ratio 13; Blood Urea Nitrogen 8 mg/dL (9-20); Hemolysis Index 6
--- NOTE | 2020-01-15 10:40 | Progress Note ---
<DARIUS KANG AYE - Last Filed: 01/15/20 10:35> Assessment and Plan Sinus tachycardia noted on telemetry. Optimize HR - initiate PO lopressor. Currently stable cardiac status. Pt may discharge from cardiology standpoint. Recommend resumption of Eliquis in setting of recently diagnosed PE. No indication for ASA from cardiology standpoint. Will defer to primary team. Follow up in our [place] office with Dr. Gutierrez on 01/20/2020 @ 3:15PM. The patient has been seen in conjunction with Dr. Gutierrez who agrees with the assessment and plan of care. - Patient Problems (1) Chest pain Current Visit: Yes Status: Resolved (2) Esophagitis Current Visit: Yes Status: Acute (3) GI bleed Current Visit: Yes Status: Acute Qualifiers: GI bleed type/associated pathology: gastrointestinal hemorrhage with hematemesis Qualified Code(s): K92.0 - Hematemesis (4) History of pulmonary embolism Current Visit: Yes Status: Chronic (5) Lung cancer Current Visit: Yes Status: Chronic (6) Hypertension Current Visit: Yes Status: Chronic Qualifiers: Hypertension type: essential hypertension Qualified Code(s): I10 - Essential (primary) hypertension (7) ETOH abuse Current Visit: Yes Status: Chronic (8) PUD (peptic ulcer disease) Current Visit: Yes Status: Chronic Subjective Date of service: 01/15/20 Principal diagnosis: GI bleed; lung CA Interval history: pt resting in bed, no current cardiac complaints. in ST on tele, HR 110s, PVCs noted overnight. Objective Last Vital Signs Temp 97.8 F 01/15/20 03:44 Pulse 109 H 01/15/20 04:00 Resp 20 01/15/20 03:44 BP 125/78 01/15/20 03:44 Pulse Ox 99 01/15/20 04:00 - Physical Examination General: No Apparent Distress HEENT: Positive: PERRL, Normocephaly, Mucus Membranes Moist Neck: Positive: neck supple, trachea midline Cardiac: Positive: Regular Rhythm, S1/S2 Lungs: Positive: Decreased Breath Sounds Neuro: Positive: Grossly Intact Abdomen: Negative: Tender Skin: Negative: Rash Musculoskeletal: No Pain Extremities: Absent: edema - Labs and Meds Cardiac Enzymes 01/14/20 Range/Units 15:58 Lactate Dehydrogenase 143 (91-180) units/L Coagulation 01/14/20 Range/Units 16:04 PT 13.0 (12.2-14.9) Sec. INR 1.00 (0.87-1.13) CBC 01/15/20 Range/Units 04:08 WBC 4.1 L (4.5-11.0) K/mm3 RBC 3.63 L (3.65-5.03) M/mm3 Hgb 9.4 L (11.8-15.2) gm/dl Hct 29.6 L (35.5-45.6) % Plt Count 509 H (140-440) K/mm3 Comprehensive Metabolic Panel 01/15/20 Range/Units 04:08 Sodium 139 (137-145) mmol/L Potassium 4.2 (3.6-5.0) mmol/L Chloride 100.2 (98-107) mmol/L Carbon Dioxide 25 (22-30) mmol/L BUN 8 L (9-20) mg/dL Creatinine 0.6 L (0.8-1.5) mg/dL Glucose 94 (75-100) mg/dL Calcium 9.0 (8.4-10.2) mg/dL - Imaging and Cardiology EKG: report reviewed, image reviewed Echo: pending <NIKI GUTIERREZ R - Last Filed: 01/15/20 10:43> Assessment and Plan compensated cardiomyopathy, ef 45% start lopressor 50mg bid and hold candy or arb secondary to lower bp Objective Vital Signs Temp Pulse Pulse Resp Resp Resp BP 01/15/20 04:00 109 H 01/15/20 03:44 97.8 F 20 125/78 01/15/20 00:29 01/14/20 23:37 98.3 F 102 H 20 01/14/20 19:29 01/14/20 19:14 97.3 F L 112 H 20 118/80 01/14/20 16:15 98.6 F 110 H 20 127/86 01/14/20 13:00 111 H 101 H 18 18 01/14/20 12:48 97.7 F 103 H 18 132/79 BP Pulse Ox 01/15/20 04:00 99 01/15/20 03:44 01/15/20 00:29 122/87 01/14/20 23:37 99 01/14/20 19:29 118/80 01/14/20 19:14 98 01/14/20 16:15 97 01/14/20 13:00 01/14/20 12:48 98 - Labs and Meds Cardiac Enzymes 01/14/20 Range/Units 15:58 Lactate Dehydrogenase 143 (91-180) units/L Coagulation 01/14/20 Range/Units 16:04 PT 13.0 (12.2-14.9) Sec. INR 1.00 (0.87-1.13) CBC 01/15/20 Range/Units 04:08 WBC 4.1 L (4.5-11.0) K/mm3 RBC 3.63 L (3.65-5.03) M/mm3 Hgb 9.4 L (11.8-15.2) gm/dl Hct 29.6 L (35.5-45.6) % Plt Count 509 H (140-440) K/mm3 Comprehensive Metabolic Panel 01/15/20 Range/Units 04:08 Sodium 139 (137-145) mmol/L Potassium 4.2 (3.6-5.0) mmol/L Chloride 100.2 (98-107) mmol/L Carbon Dioxide 25 (22-30) mmol/L BUN 8 L (9-20) mg/dL Creatinine 0.6 L (0.8-1.5) mg/dL Glucose 94 (75-100) mg/dL Calcium 9.0 (8.4-10.2) mg/dL
[2020-01-15] MEDS: PANTOPRAZOLE 40 MG TAB PO SCH (10:43)
[2020-01-15] MEDS: MULTIVITAMINS,THER W-MINERALS TAB PO SCH (10:43)
[2020-01-15] MEDS ORDERED: METOPROLOL TARTRATE 50 MG TAB PO SCH (12:00)
[2020-01-15 12:08] VITALS: BP 125/82
--- NOTE | 2020-01-15 13:32 | Discharge Summary ---
Providers - Providers Date of Admission: 01/13/20 05:51 Attending physician: RUSLAN WILHELM MD 01/13/20 Consult to Cardiac Rehabilitation [CONS] Routine Reason For Exam: Phase I 01/13/20 05:55 Consult to Cardiology [CONS] Routine Consulting Provider: RERE BROWN Reason For Exam: chest pain 01/13/20 05:59 Consult to Physician [CONS] Routine Comment: Consulting Provider: VINCENT ARROYO Physician Instructions: Reason For Exam: GI BLEED 01/14/20 07:48 Consult to Physician [CONS] Routine Comment: Consulting Provider: BRIAN GALVEZ Physician Instructions: Reason For Exam: lung ca, plueral effusion Occupational Therapy Evaluate and Treat [CONS] Routine Comment: Reason For Exam: debility Physical Therapy Evaluation and Treat [CONS] Routine Comment: Reason For Exam: debility 01/14/20 07:50 Consult to Dietitian/Nutrition [CONS] Routine Physician Instructions: Reason For Exam: Reason for Consult: Malnutrition Primary care physician: ESCAPEMENT MATCHER Hospitalization Reason for admission: atypical chest pain Condition: Stable Hospital course: 64-year-old -[place] male with known history of hypertension, CHF, lung cancer, peptic ulcer disease sent into the emergency room today complaining of chest pain and syncope. Patient indicates that he was sitting on the toilet seat today and had a syncopal episode while he was straining. He had also been feeling dizzy prior to the syncopal episode. Patient states he was recently diagnosed with pulmonary embolism at the [facility] about a week ago and has been placed on Eliquis. He has been having left-sided chest pain after the syncopal episode today with associated palpitations. There has been no radiation of his chest pain. He has had some nausea and vomiting and indicates he has been vomiting blood. He denies any bright red blood per rectum, he denies any hematuria or dysuria. He also indicates that he has palpitations when he has his anxiety. Patient has history of lung cancer and had been on chemotherapy. Upon arrival in the emergency room found to be slightly tachycardic, CT angiogram of the chest was unremarkable. Was also found to be having hematemesis. Atypical Chest Pain secondary to Esophagitis * Per GI Severe erosive esophagitis (EGD 11/2019) and not clear patient is compliant with protonix; he is not compliant with f/u in our office. - Will resume protonix, and advance to full liquid diet (as N/V has now resolved). - If patient truly on chemo (no records) then this may be compounding the esophagitis, as is EtOH abuse with chronic emesis/regurgitation. - OK to continue ASA or Eliquis, but would avoid combination if possible. * Per cardiology * No plan for procedure Hx Pulmonary Embolisim * CTA Negative this admission, but patient reports Record from [facility] to document * h/o recently diagnosed pulmonary embolism at [facility], anticoagulated with Eliquis (although chest CTA this admission is negative for PE), Left Small to moderate Pleural effusion * Pulmonary consult * Patient has port in chest wall, and states chemo this past week; poor historian however. * Would be beneficial if he could bring records with him to hospital visits. Lung CA * h/o recently diagnosed pulmonary embolism at [facility], anticoagulated with Eliquis (although chest CTA this admission is negative for PE), PUD Acute on chronic Respiratory failure: Secondary to mild pulmonary edema. Pulm consult Tobacco use disorder: 15 MINS OF tobacco cessation counselling Tachycardia Esophagitits- severe with GI bleed * N/V improved, Continue protonix, advance diet, concern that if patient is on chemo it maybe complicating esophagitis Anemia: Monitor PUD: Continue PPI, Per GI oK to continue ASA or Eliquis, but would avoid combination if possible. Eliquis and ASA currently held. Alcohol Dependance: per hx, not actively Deconditioned: Outpatient rehab Disposition: DC- TO HOME OR SELFCARE Time spent for discharge: 35 mins Core Measure Documentation - Palliative Care Palliative Care/ Comfort Measures: Not Applicable - Core Measures Any of the following diagnoses?: none Exam - Physical Exam Narrative exam: General appearance: Present: mild distress, well-nourished, - EENT Eyes: Present: PERRL, EOM intact ENT: hearing intact, clear oral mucosa, dentition normal - Neck Neck: Present: supple, normal ROM - Respiratory Respiratory: bilateral: CTA - Cardiovascular Rhythm: regular - Extremities Extremities: no ischemia, pulses intact, pulses symmetrical, No edema, normal temperature, normal color, Full ROM Extremity abnormal: other (Generalized weakness pulses seem intact no edema.) Peripheral Pulses: within normal limits - Abdominal General gastrointestinal: tender, normal bowel sounds, other (Tenderness and pain most likely midepigastric area. Cannot really be palpated to cause pain. Patient also complains of stringy bowel movements.), no hepatomegaly, no splenomegaly Localized gastrointestinal: tender: epigastric periumbilical - Integumentary Integumentary: Present: clear, warm, dry - Psychiatric Psychiatric: appropriate mood/affect, intact judgment & insight - Neurologic Neurologic: CNII-XII intact, moves all extremities - Constitutional Vitals: Temp Pulse Resp BP Pulse Ox 99.1 F 110 H 22 125/82 99 01/15/20 11:17 01/15/20 11:17 01/15/20 11:17 01/15/20 11:17 01/15/20 11:17 Plan Activity: advance as tolerated, fall precautions Diet: low fat Special Instructions: smoking cessation Follow up with: PRIMARY CAREMD [Primary Care Provider] - 3-5 Days NIKI GUTIERREZ MD [Staff Physician] - 7 Days (Follow up in our [place] office with Dr. Gutierrez on 01/20/2020 @ 3:15PM. ) Prescriptions: Zolpidem [Ambien] 10 mg PO QHS #14 tab Apixaban [Eliquis] 5 mg PO BID #60 tablet Metoprolol [Lopressor TAB] 50 mg PO BID #60 tablet Multivitamin Tab W-MINERAL [Multiple Vitamin/Mineral (Theragran M)] 1 each PO QDAY #30 tablet Pantoprazole [Protonix TAB] 40 mg PO BID #60 tablet
--- NOTE | 2020-01-15 13:57 | Progress Note ---
Assessment and Plan Acute hypoxemic respiratory failure. Status post syncopal episode. Lung cancer with known history, likely recurrent. Left loculated pleural effusion. History of congestive heart failure. Hypertension. History of gastrointestinal bleed. - continue to wean supplemental oxygen to keep O2 sats > 90% - continue Bronchodilators with pulm hygiene per RT - avoid nephrotoxins, renally dose all medications - mobility protocols to prevent pressure ulcers - PT/OT as tolerated - Wound care per RN/WCT - accuchecks with glycemic control per SSI for target blood glucose < 180 mg/dL - Smoking cessation strongly counseled at the bedside - home oxygen evaluation at discharge - GI & VTE prophylaxis - Flu & pneumovax per protocol - continue other care per attending / other consultants - prn analgesia per pain score ... re-evaluate in am & prn Subjective Date of service: 01/15/20 Principal diagnosis: Ac hypoxemic resp failure; Syncope; Lung cancer; Pleural effusion. Interval history: Patient is seen today for: Acute hypoxemic respiratory failure; Syncope; Lung cancer with known history; Left loculated pleural effusion. Seen and examined at bedside; 24hour events reviewed; nursing and respiratory care staff consulted; no adverse overnight events reported to me; resting peacefully in bed; no N/V/F/C Objective Vital Signs - 12hr 01/15/20 01/15/20 01/15/20 03:44 04:00 11:17 Temperature 97.8 F 99.1 F Pulse Rate 109 H 110 H Respiratory 20 22 Rate Blood Pressure 125/78 125/82 O2 Sat by Pulse 99 99 Oximetry Constitutional: no acute distress Eyes: non-icteric ENT: oropharynx moist Neck: supple, no lymphadenopathy Effort: mildly labored Ascultation: Bilateral: diminished breath sounds, rhonchi Percussion: Bilateral: not dull Cardiovascular: regular rate and rhythm Gastrointestinal: normoactive bowel sounds, soft, non-tender Extremities: no cyanosis, pulses normal, no ischemia or petechiae Neurologic: pupils equal and round, CN II-XII normal Psychiatric: mood appropriate, affect normal CBC and BMP: 01/15/20 04:08 01/15/20 04:08 ABG, PT/INR, D-dimer: PT/INR, D-dimer PT 13.0 Sec. (12.2-14.9) 01/14/20 16:04 INR 1.00 (0.87-1.13) 01/14/20 16:04 Abnormal lab findings: Abnormal Labs 01/13/20 01/13/20 01/13/20 03:24 03:24 06:49 WBC RBC Hgb 9.7 L 9.7 L Hct 30.4 L 30.5 L MCV 81 L 81 L MCH 26 L 26 L MCHC RDW 18.6 H 18.6 H Plt Count 552 H 529 H Lymph % (Auto) 11.7 L 11.9 L Baso % (Auto) 2.0 H Lymph # 0.7 L 0.7 L Seg Neutrophils % 86.0 H 84.4 H Sodium Chloride 96.5 L BUN Creatinine 0.5 L Glucose 123 H Albumin 01/13/20 01/14/20 01/14/20 06:49 06:58 06:58 WBC 3.7 L RBC 3.51 L Hgb 9.0 L Hct 28.8 L MCV 82 L MCH 26 L MCHC 31 L RDW 18.2 H Plt Count 501 H Lymph % (Auto) Baso % (Auto) Lymph # 1.0 L Seg Neutrophils % Sodium 136 L Chloride BUN 7 L Creatinine 0.6 L 0.6 L Glucose 108 H 101 H Albumin 01/14/20 01/15/20 01/15/20 06:58 04:08 04:08 WBC 4.1 L RBC 3.63 L Hgb 9.4 L Hct 29.6 L MCV 82 L MCH 26 L MCHC RDW 18.5 H Plt Count 509 H Lymph % (Auto) Baso % (Auto) Lymph # Seg Neutrophils % Sodium Chloride BUN 8 L Creatinine 0.6 L Glucose Albumin 3.6 L Allied health notes reviewed: nursing
--- NOTE | 2020-01-15 20:36 | Consultation ---
PULMONARY CONSULTATION CONSULTING PHYSICIAN: Loi Haynes MD REASON FOR CONSULTATION: Lung cancer and pleural effusion. CHIEF COMPLAINT AND HISTORY OF PRESENT ILLNESS: The patient is a now 64-year-old -[place] male with past medical history according to him significant amongst other things for a diagnosis of lung cancer for which he has been seen in the [facility]. He states he just moved to [facility]. It took him about 5 months to get into the [facility] system. He came into the Emergency Room a couple of days prior to my visit, complaining of a syncopal episode while he was straining, he was on the toilet seat. He stated that he had been feeling dizzy prior to the syncopal episode. He states he was recently diagnosed with an acute pulmonary embolism at the [facility] and had been placed on Eliquis. He had been compliant with his medications as far as he knows. He denied trauma, he denied falling, but he did complain of left-sided chest pain and some popping sensations in association with his syncopal episode, he also had nausea and vomiting and described some episodes of hematemesis or possibly hemoptysis. He denied any hematochezia. He denied any abdominal pain. He denied any fevers or chills. He denied diarrhea. He has been on chemotherapy in the past, he says about 5 years ago and had been in remission. When I stopped by to see him, he was resting in bed, he was on a little bit of supplemental oxygen and stated he was overall feeling a little bit better. He states he has never been known to have a pleural effusion and has never had a thoracentesis done as far as he can tell. This really is as much of the history of presentation as I have. PAST MEDICAL HISTORY: Again, significant for cardiomyopathy, hypertension, lung cancer, history of GI bleed, peptic ulcer disease, history of hypertension. PAST SURGICAL HISTORY: I believe he has had a port placed in the past for chemotherapy administration. Otherwise, surgical history is unknown. MEDICATIONS: He was on at the time I stopped by to see him were reviewed. Pertinent medications included the following, morphine 2 mg IV p.r.n., daily multivitamin, Protonix 40 mg p.o. b.i.d., Ambien 10 mg p.o. at bedtime p.r.n. insomnia. ALLERGIES: PENICILLINS, nature of this allergy is unknown. DIET: He is a well-built gentleman. Denies acute weight loss or weight gain in the preceding few weeks to months. FAMILY AND SOCIAL HISTORY: Lives in the community. Denies current alcohol, tobacco, or illicit drug use or abuse. He does have a 10+ pack year remote tobacco smoking history, quit smoking about 5 years ago. FAMILY HISTORY: Otherwise, nonsignificant. REVIEW OF SYSTEMS: He had the syncopal episode. Otherwise, he denied hematochezia. He denied hemoptysis. He denied new onset seizures. He denied new onset focal weakness. He denied polydipsia or polyuria. He denied heat or cold intolerance. He denied periods of unexplained sadness and/or elation as may be consistent with psychiatric type disorders. Complete 13-system review of systems obtained. Pertinent positives and/or negatives as in body of history above, otherwise noncontributory. PHYSICAL EXAMINATION: VITAL SIGNS: At presentation in the Emergency Room, he was afebrile, temperature 98.3, pulse was 132, respiratory rate was 18, blood pressure 131/95, O2 sats were 98%, inspired oxygen concentration at that time was not recorded. When I stopped by to see him, his O2 sats were 98% on 2 liters nasal cannula. GENERAL: He is an elderly looking -[place]ames[place] male, normocephalic, atraumatic, talking to me in mostly uninterrupted sentences, but with mildly increased respiratory effort at rest. HEAD, EYES, EARS, NOSE AND THROAT: He is anicteric. No conjunctival erythema. Oropharynx was moist. Mallampati #3 oropharynx. No gross jugular venous distention, no thyromegaly. NECK: Grossly, there were no palpable lymph nodes in the supraclavicular or submandibular lymph node chains. LUNGS: Auscultation of both lung davies is unremarkable except for reduced left lower lobe air entry and left lower lobe rales. He also has an implanted device in the right upper anterior chest wall. ABDOMEN: Soft. Bowel sounds are positive, nontender, no palpable hepatosplenomegaly. EXTREMITIES: Without overt digital clubbing, no cyanosis, no significant pedal edema. Pedal pulses are 2+ bilaterally. NEUROLOGIC: Pupils are equal, round, about 4 mm, reactive to light. Extraocular muscle movements are intact. He moves all 4 extremities spontaneously. SKIN: Normal turgor without overt cellulitis or rash. PSYCHIATRIC: His mood is normal. His affect is appropriate. LABORATORY DATA: From my review are as follows: Admission white cell count 6100, hemoglobin 9.7, hematocrit 30.4, platelet count is 552. Serum sodium is 137, potassium 4.0, chloride 97, bicarbonate 27, BUN 10, creatinine 0.5, glucose 123. Troponin was within normal limits. Stool occult blood was sent and it was negative. I have reviewed a chest x-ray as well as the radiologist's interpretation. A CT angiogram of his chest was also done. The main finding was the loculated left pleural effusion. The contrast phase timing was not the best; however, no large order filling defects consistent with pulmonary emboli. The lung windows show volume loss in the left hemithorax; however, no focal pneumonic type infiltrates or consolidation. ASSESSMENT: 1. Acute hypoxemic respiratory failure. 2. Status post syncopal episode. 3. Lung cancer with known history, likely recurrent. 4. Left loculated pleural effusion. 5. History of congestive heart failure. 6. Hypertension. 7. History of gastrointestinal bleed. PLAN: We will go ahead and order for a thoracentesis. We will have to bridge the anticoagulation. This is because he states he has never had a thoracentesis done. This will hopefully help stage this lung cancer and ensure that we are not dealing with some other kind of fluid such as a parapneumonic effusion or empyema. He is in agreement for this plan at this point in time. Otherwise, we will continue anticoagulation for the PE. I have advised him that he definitely needs to have the diploma medical assistant at the [facility], he states he only sees an oncologist at this time. Continued tobacco abstinence has been counseled. He will be placed on GI prophylaxis. Chronic disease medications will be resumed by the attending physician. Flu and pneumonia vaccination will be addressed per protocol. Thank you very much for the consult. We will follow along and make further recommendations as the picture progresses/becomes clearer. JOB# [id number] RAY/JANE
--- NOTE | 2020-01-17 08:37 | Ultrasound Report ---
Limited left chest Ultrasound HISTORY: Left pleural effusion, evaluate for thoracentesis. TECHNIQUE: Grayscale imaging performed. COMPARISON: CTA chest from 01/13/2020 IMPRESSION: Trace left-sided pleural effusion with volume of 43 mL, inadequate volume for safe thorac entesis. Signer Name: Angel Luis Pino MD Signed: 01/17/2020 8:33 AM Workstation Name: [id number]
== END 2020-01-15 14:35 | disposition home or self-care (01) | DRG 380 ==
LOC: SUATTDRO 03:11 → ED 03:11 → 4A 05:51
PROVIDERS: ADMIT Internal Medicine; ATTEND Internal Medicine
DX: K22.11 Ulcer of esophagus with bleeding (principal); J96.21 Acute and chronic respiratory failure with hypoxia; J90 Pleural effusion, not elsewhere classified; J81.1 Chronic pulmonary edema; C34.90 Malignant neoplasm of unspecified part of unspecified bronchus or lung; I42.9 Cardiomyopathy, unspecified; I11.0 Hypertensive heart disease with heart failure; I50.9 Heart failure, unspecified; R11.10 Vomiting, unspecified; R55 Syncope and collapse; I25.10 Atherosclerotic heart disease of native coronary artery without angina pectoris; F17.200 Nicotine dependence, unspecified, uncomplicated; D64.9 Anemia, unspecified; F10.20 Alcohol dependence, uncomplicated; Y90.9 Presence of alcohol in blood, level not specified; Z88.0 Allergy status to penicillin; Z87.11 Personal history of peptic ulcer disease; Z92.21 Personal history of antineoplastic chemotherapy; Z86.711 Personal history of pulmonary embolism; Z71.6 Tobacco abuse counseling
CPT/HCPCS: 36415; 71045; 71275; 76604; 80048; 82040; 82271; 83615; 84134; 84484; 85025; 85027; 85610; 93005; 93306; G0378; C9113; J0780; J2060; J2270; J2405; J3010; J7030; J7040; Q9967

== ENCOUNTER 2020-05-03 14:39 | Observation (INO) | payer MEDICARE ==
[2020-05-03] MEDS ORDERED: SODIUM CHLORIDE 0.9% 1000 ML 1,000 ML IV ONE (15:12)
[2020-05-03] MEDS ORDERED: MORPHINE 4 MG/1 ML INJ IV ONE ×2 (15:12→19:12)
[2020-05-03] MEDS ORDERED: PANTOPRAZOLE 40 MG INJ IV ONE (15:12)
[2020-05-03] MEDS ORDERED: ONDANSETRON 4 MG/2 ML INJ IV ONE (15:12)
--- NOTE | 2020-05-03 15:17 | Emergency Department Report ---
ED GI Bleed HPI - General Chief complaint: GI Bleed Stated complaint: VOMITING BLOOD Time Seen by Provider: 05/03/20 15:01 Source: patient Mode of arrival: Ambulatory Limitations: No Limitations - History of Present Illness Initial comments: Patient is 65 years old male with history of congestive heart failure, hypertension, diabetes, lung cancer stage IV. Patient also had history of pulmonary embolism and currently taking Lovenox. Patient presented to the ER via EMS from home stating that he has been throwing blood for the last 3 days. Patient also noticed blood in the urine and when he coughs also. Patient denied any fever or chills. No abdominal pain. Patient stated that he had a recent endoscopy done at the [facility] and they told him that he has peptic ulcer and gastritis. MD complaint: blood streaked emesis -: days(s) (3) Quality: painless - Related Data Home Medications Medication Instructions Recorded Confirmed Last Taken Gabapentin [Neurontin] 600 mg PO BID 11/25/19 04/06/20 12/07/19 hydrALAZINE [Apresoline TAB] 10 mg PO BID 11/25/19 04/06/20 12/08/19 Aspirin [Aspirin BABY CHEW TAB] 81 mg PO QDAY 04/06/20 04/06/20 Unknown Isosorbide Mononitrate 30 mg PO DAILY 04/06/20 04/06/20 Unknown Metoprolol Xl [Metoprolol 37.5 mg PO QDAY 04/06/20 04/06/20 Unknown SUCCINATE ER TAB] Pantoprazole [Protonix] 40 mg PO QDAY 04/06/20 04/06/20 Unknown Previous Rx's Medication Instructions Recorded Last Taken Type Zolpidem [Ambien] 10 mg PO QHS #14 tab 01/15/20 Unknown Rx HYDROmorphone [Dilaudid] 2 mg PO Q8HR #28 tablet 04/07/20 Unknown Rx LORazepam [Ativan] 1 mg PO QHS #30 tab 04/07/20 Unknown Rx Allergies Allergy/AdvReac Type Severity Reaction Status Date / Time etodolac Allergy Unknown Verified 04/06/20 22:51 ketorolac [From Toradol] Allergy Unknown Verified 04/06/20 22:51 lisinopril Allergy Unknown Verified 04/06/20 22:51 Penicillins Allergy Unknown Verified 12/22/19 05:13 ED Review of Systems ROS: Stated complaint: VOMITING BLOOD Other details as noted in HPI Comment: All other systems reviewed and negative Constitutional: denies: chills, fever Cardiovascular: palpitations. denies: chest pain Gastrointestinal: nausea, vomiting, hematochezia. denies: abdominal pain, d iarrhea Genitourinary: hematuria ED Past Medical Hx - Past Medical History Previous Medical History?: Yes Hx Hypertension: Yes Hx Congestive Heart Failure: Yes Hx Diabetes: No Hx Pulmonary Embolism: Yes Hx Arthritis: Yes Hx Asthma: No Hx COPD: No Additional medical history: Lung cancer, GI bleed, peptic ulcer disease. chemo tx every 21 days, Lung cx - Surgical History Past Surgical History?: Yes Additional Surgical History: Left Lung biopsy - Social History Smoking Status: Former Smoker - Medications Home Medications: Home Medications Medication Instructions Recorded Confirmed Last Taken Type Gabapentin [Neurontin] 600 mg PO BID 11/25/19 04/06/20 12/07/19 History hydrALAZINE [Apresoline TAB] 10 mg PO BID 11/25/19 04/06/20 12/08/19 History Zolpidem [Ambien] 10 mg PO QHS #14 tab 01/15/20 04/06/20 Unknown Rx Aspirin [Aspirin BABY CHEW TAB] 81 mg PO QDAY 04/06/20 04/06/20 Unknown History Isosorbide Mononitrate 30 mg PO DAILY 04/06/20 04/06/20 Unknown History Metoprolol Xl [Metoprolol 37.5 mg PO QDAY 04/06/20 04/06/20 Unknown History SUCCINATE ER TAB] Pantoprazole [Protonix] 40 mg PO QDAY 04/06/20 04/06/20 Unknown History HYDROmorphone [Dilaudid] 2 mg PO Q8HR #28 tablet 04/07/20 Unknown Rx LORazepam [Ativan] 1 mg PO QHS #30 tab 04/07/20 Unknown Rx ED Physical Exam - General Limitations: No Limitations General appearance: alert, in no apparent distress - Head Head exam: Present: atraumatic, normocephalic, normal inspection - Eye Eye exam: Present: normal appearance, PERRL - ENT ENT exam: Present: normal exam, normal orophraynx, mucous membranes moist - Neck Neck exam: Present: normal inspection, full ROM. Absent: tenderness, meningismus - Respiratory Respiratory exam: Present: decreased breath sounds. Absent: wheezes, rales, rhonchi - Cardiovascular Cardiovascular Exam: Present: tachycardia - GI/Abdominal GI/Abdominal exam: Present: soft, normal bowel sounds. Absent: distended, tenderness, guarding, rebound, rigid, organomegaly, mass, bruit, pulsatile mass, hernia - Extremities Exam Extremities exam: Present: normal inspection, full ROM, normal capillary refill. Absent: calf tenderness - Back Exam Back exam: Present: normal inspection, full ROM. Absent: CVA tenderness (R), CVA tenderness (L) - Neurological Exam Neurological exam: Present: alert, oriented X3, CN II-XII intact - Psychiatric Psychiatric exam: Present: normal mood - Skin Skin exam: Present: warm, intact, normal color ED Course Vital Signs 05/03/20 05/03/20 05/03/20 15:00 15:12 15:15 Temperature 98.6 F Pulse Rate 99 H 96 H Respiratory 18 23 Rate Blood Pressure 125/92 05/03/20 15:30 Temperature Pulse Rate 98 H Respiratory 25 H Rate Blood Pressure 116/92 ED Medical Decision Making - Lab Data Result diagrams: 05/03/20 15:49 05/03/20 15:49 - Medical Decision Making Patient is 65 years old male with history of congestive heart failure, hypertension, diabetes, lung cancer stage IV. Patient also had history of pulmonary embolism and currently taking Lovenox. Patient presented to the ER via EMS from home stating that he has been throwing blood for the last 3 days. Patient also noticed blood in the urine and when he coughs also. Patient denied any fever or chills. No abdominal pain. Patient stated that he had a recent endoscopy done at the [facility] and they told him that he has peptic ulcer and gastritis. Labs reviewed and showed a hemoglobin of 10 which is basically this is his baseline hemoglobin. Patient is slightly tachycardic he received 1 L of normal saline with improvement. Patient was seen by Dr. Isaiah Calloway, area director in December and diagnosed with erosive gastritis. There is also possibility that the bleeding is from the Lovenox that he is getting twice a day. I discussed the patient with Dr. Daily, he agreed to admit the patient to medical floor for further management. Critical Care Time: Yes Critical care time in (mins) excluding proc time.: 30 Critical care attestation.: If time is entered above; I have spent that time in minutes in the direct care of this critically ill patient, excluding procedure time. ED Disposition Clinical Impression: Upper GI bleed Disposition: OP ADMIT IP TO THIS HOSP Is pt being admited?: Yes Condition: Stable Forms: Accompanied Note
[2020-05-03] MEDS ORDERED: MORPHINE 2 MG/1 ML INJ ONE ×2 (15:26→19:07)
[2020-05-03 16:12] LABS: Basophils % (Auto) 0.5 % (0.0-1.8); Eosinophils % (Auto) 0.5 % (0.0-4.3); Hematocrit 31.4 % (35.5-45.6); Hemoglobin 10.1 gm/dl (11.8-15.2); Lymphocytes # (Auto) 0.8 K/mm3 (1.2-5.4); Mean Corpuscular HGB Conc 32 % (32-34); Mean Corpuscular Volume 89 fl (84-94); Monocytes # (Auto) 0.5 K/mm3 (0.0-0.8); Monocytes % (Auto) 10.4 % (0.0-7.3); Platelet Count 405 K/mm3 (140-440); Red Blood Count 3.54 M/mm3 (3.65-5.03); Red Cell Distribution Width 18.5 % (13.2-15.2)
[2020-05-03 16:23] LABS: INR 1.06 (0.87-1.13)
--- NOTE | 2020-05-03 16:23 | XRay Report ---
CHEST 1 VIEW INDICATION / CLINICAL INFORMATION: sob. COMPARISON: 04/06/2020 FINDINGS: SUPPORT DEVICES: Right chest wall port with tip extending to the cavoatrial junction. HEART / MEDIASTINUM: Stable. LUNGS / PLEURA: Small-moderate left pleural effusion. Stable appearing left pleural nodular opacities . Right lung is clear. No pneumothorax. ADDITIONAL FINDINGS: No significant additional findings. IMPRESSION: 1. Small-moderate left pleural effusion with associated fine loss. Left nodular pleural opacities. Signer Name: Andrew Zuniga MD Signed: 05/03/2020 4:18 PM Workstation Name: [id number]
[2020-05-03 16:24] LABS: Partial Thromboplastin Time 30.6 Sec. (24.2-36.6)
[2020-05-03 16:30] LABS: Alanine Aminotransferase 10 units/L (7-56); Albumin 3.5 g/dL (3.9-5); Blood Urea Nitrogen 7 mg/dL (9-20); Hemolysis Index 1
[2020-05-03 16:48] LABS: BUN/Creatinine Ratio 12; Bilirubin,Direct < 0.2 mg/dL (0-0.2)
[2020-05-03] MEDS ORDERED: ONDANSETRON 4 MG/2 ML INJ IV PRN (22:45)
[2020-05-03] MEDS ORDERED: ACETAMINOPHEN 325 MG TAB PO PRN (22:45)
[2020-05-03] MEDS ORDERED: METOCLOPRAMIDE 10 MG/2 ML INJ IV PRN (22:45)
--- NOTE | 2020-05-03 22:45 | History and Physical Report ---
History of Present Illness Date of examination: 05/03/20 Date of admission: 05/03/20 18:57 Chief complaint: Vomiting blood for 3 days History of present illness: 64-year-old male with history of congestive heart failure, hypertension, diabetes lung cancer stage IV and history of pulmonary embolism on Lovenox comes in for vomiting blood for the last 3 days. Intermittent in nature. No epigastric pain. Patient had a recent endoscopy revealed a: Likely has peptic ulcer and gastritis. No syncope or seizures. No chest pain. No shortness of breath. - Past Medical History Previous Medical History?: Yes Hypertension: Yes Congestive Heart Failure: Yes Pulmonary Embolism: Yes Arthritis: Yes Additional medical history: Lung cancer, GI bleed, peptic ulcer disease. chemo tx every 21 days, Lung cx - Surgical History Past Surgical History?: Yes Additional Surgical History: Left Lung biopsy - Social History Smoking Status: Former Smoker Family history Htn - Medications Home Medications: Home Medications Medication Instructions Recorded Confirmed Last Taken Type Gabapentin [Neurontin] 600 mg PO BID 11/25/19 04/06/20 12/07/19 History hydrALAZINE [Apresoline TAB] 10 mg PO BID 11/25/19 04/06/20 12/08/19 History Zolpidem [Ambien] 10 mg PO QHS #14 tab 01/15/20 04/06/20 Unknown Rx Aspirin [Aspirin BABY CHEW TAB] 81 mg PO QDAY 04/06/20 04/06/20 Unknown History Isosorbide Mononitrate 30 mg PO DAILY 04/06/20 04/06/20 Unknown History Metoprolol Xl [Metoprolol 37.5 mg PO QDAY 04/06/20 04/06/20 Unknown History SUCCINATE ER TAB] Pantoprazole [Protonix] 40 mg PO QDAY 04/06/20 04/06/20 Unknown History HYDROmorphone [Dilaudid] 2 mg PO Q8HR #28 tablet 04/07/20 Unknown Rx LORazepam [Ativan] 1 mg PO QHS #30 tab 04/07/20 Unknown Rx Review of Systems ROS: Stated complaint: VOMITING BLOOD Other details as noted in HPI Comment: All other systems reviewed and negative Constitutional: denies: chills, fever Cardiovascular: palpitations. denies: chest pain Gastrointestinal: nausea, vomiting, hematochezia. denies: abdominal pain, diarrhea Genitourinary: hematuria Medications and Allergies Allergies Allergy/AdvReac Type Severity Reaction Status Date / Time etodolac Allergy Unknown Verified 04/06/20 22:51 ketorolac [From Toradol] Allergy Unknown Verified 04/06/20 22:51 lisinopril Allergy Unknown Verified 04/06/20 22:51 Penicillins Allergy Unknown Verified 12/22/19 05:13 Home Medications Medication Instructions Recorded Confirmed Last Taken Type Gabapentin [Neurontin] 600 mg PO BID 11/25/19 05/03/20 05/02/20 12:00 History Aspirin [Aspirin BABY CHEW TAB] 81 mg PO QDAY 04/06/20 05/03/20 05/02/20 12:00 History Isosorbide Mononitrate 30 mg PO DAILY 04/06/20 05/03/20 05/02/20 12:00 History Metoprolol Xl [Metoprolol 37.5 mg PO QDAY 04/06/20 05/03/20 05/02/20 12:00 History SUCCINATE ER TAB] Pantoprazole [Protonix] 40 mg PO QDAY 04/06/20 05/03/20 05/02/20 12:00 History HYDROmorphone [Dilaudid] 2 mg PO Q8HR #28 tablet 04/07/20 05/03/20 05/02/20 12:00 Rx LORazepam [Ativan] 1 mg PO QHS #30 tab 04/07/20 05/03/20 Unknown Rx Zolpidem [Ambien] 15 mg PO QHS 05/03/20 05/04/20 05/02/20 21:00 History Exam - Constitutional Vitals: Temp Pulse Resp BP Pulse Ox 98.7 F 105 H 16 136/66 95 05/03/20 21:07 05/03/20 21:07 05/03/20 21:07 05/03/20 21:07 05/03/20 21:07 General appearance: Present: no acute distress, mild distress, well-nourished - EENT Eyes: Present: PERRL ENT: hearing intact, clear oral mucosa - Neck Neck: Present: supple, normal ROM - Respiratory Respiratory effort: normal Respiratory: bilateral: CTA - Cardiovascular Heart rate: 78 Rhythm: regular Heart Sounds: Present: S1 & S2. Absent: rub, click - Extremities Extremities: no ischemia, pulses intact, pulses symmetrical, No edema Peripheral Pulses: within normal limits - Abdominal General gastrointestinal: Present: soft, non-tender, non-distended, normal bowel sounds Male genitourinary: Present: normal - Integumentary Integumentary: Present: clear, warm, dry - Musculoskeletal Musculoskeletal: gait normal, strength equal bilaterally - Psychiatric Psychiatric: appropriate mood/affect, intact judgment & insight - Neurologic Neurologic: CNII-XII intact, moves all extremities Results - Labs CBC & Chem 7: 05/03/20 23:42 05/04/20 04:10 Labs: Laboratory Last Values WBC 5.2 K/mm3 (4.5-11.0) 05/03/20 15:49 RBC 3.54 M/mm3 (3.65-5.03) L 05/03/20 15:49 Hgb 10.1 gm/dl (11.8-15.2) L 05/03/20 15:49 Hct 31.4 % (35.5-45.6) L 05/03/20 15:49 MCV 89 fl (84-94) 05/03/20 15:49 MCH 29 pg (28-32) 05/03/20 15:49 MCHC 32 % (32-34) 05/03/20 15:49 RDW 18.5 % (13.2-15.2) H 05/03/20 15:49 Plt Count 405 K/mm3 (140-440) 05/03/20 15:49 Lymph % (Auto) 15.0 % (13.4-35.0) 05/03/20 15:49 [place] % (Auto) 10.4 % (0.0-7.3) H 05/03/20 15:49 Eos % (Auto) 0.5 % (0.0-4.3) 05/03/20 15:49 Baso % (Auto) 0.5 % (0.0-1.8) 05/03/20 15:49 Lymph # 0.8 K/mm3 (1.2-5.4) L 05/03/20 15:49 [place] # 0.5 K/mm3 (0.0-0.8) 05/03/20 15:49 Eos # 0.0 K/mm3 (0.0-0.4) 05/03/20 15:49 Baso # 0.0 K/mm3 (0.0-0.1) 05/03/20 15:49 Seg Neutrophils % 73.6 % (40.0-70.0) H 05/03/20 15:49 Seg Neutrophils # 3.8 K/mm3 (1.8-7.7) 05/03/20 15:49 PT 13.9 Sec. (12.2-14.9) 05/03/20 15:49 INR 1.06 (0.87-1.13) 05/03/20 15:49 APTT 30.6 Sec. (24.2-36.6) 05/03/20 15:49 Sodium 141 mmol/L (137-145) 05/03/20 15:49 Potassium 3.9 mmol/L (3.6-5.0) 05/03/20 15:49 Chloride 99.5 mmol/L (98-107) 05/03/20 15:49 Carbon Dioxide 28 mmol/L (22-30) 05/03/20 15:49 Anion Gap 17 mmol/L 05/03/20 15:49 BUN 7 mg/dL (9-20) L 05/03/20 15:49 Creatinine 0.6 mg/dL (0.8-1.3) L 05/03/20 15:49 Estimated GFR > 60 ml/min 05/03/20 15:49 BUN/Creatinine Ratio 12 % 05/03/20 15:49 Glucose 99 mg/dL (75-100) 05/03/20 15:49 Lactic Acid 1.00 mmol/L (0.7-2.0) 05/03/20 15:49 Calcium 9.0 mg/dL (8.4-10.2) 05/03/20 15:49 Total Bilirubin 0.20 mg/dL (0.1-1.2) 05/03/20 15:49 Direct Bilirubin < 0.2 mg/dL (0-0.2) 05/03/20 15:49 Indirect Bilirubin 0.0 mg/dL 05/03/20 15:49 AST 16 units/L (5-40) 05/03/20 15:49 ALT 10 units/L (7-56) 05/03/20 15:49 Alkaline Phosphatase 125 units/L (35-129) 05/03/20 15:49 Total Protein 7.5 g/dL (6.3-8.2) 05/03/20 15:49 Albumin 3.5 g/dL (3.9-5) L 05/03/20 15:49 Albumin/Globulin Ratio 0.9 % 05/03/20 15:49 Blood Type O POSITIVE 05/03/20 15:50 Antibody Screen Negative 05/03/20 15:50 Sandoval/IV: IV Catheter Type [Right INT / Saline Lock Antecubital] Assessment and Plan Advance Directives: Yes (Full code) VTE prophylaxis?: Mechanical Plan of care discussed with patient/family: Yes - Patient Problems (1) Upper GI bleed Current Visit: Yes Status: Acute Plan to address problem: IV Protonix drip for now Serial hemoglobin and hematocrit every 8 hours Transfuse if necessary If hemoglobin drops below 7.5 (2) Peptic ulcer disease Current Visit: Yes Status: Chronic Plan to address problem: Continue Protonix drip and change to oral per tonics twice a day after the patient is stop bleeding (3) History of pulmonary embolism Current Visit: No Status: Chronic Plan to address problem: Hold Lovenox (4) Hypertension Current Visit: No Status: Chronic Qualifiers: Hypertension type: essential hypertension Qualified Code(s): I10 - Essential (primary) hypertension Plan to address problem: Catapres patch if necessary (5) CAD (coronary artery disease) Current Visit: No Status: Chronic Qualifiers: Coronary Disease-Associated Artery/Lesion type: [place] artery [place] vs. transplanted heart: [place] heart Plan to address problem: Hold isosorbide for now (6) DVT prophylaxis Current Visit: No Status: Acute Plan to address problem: We will hold off Lovenox. SCDs and GI prophylaxis
[2020-05-04 00:47] LABS: Hematocrit 30.2 % (35.5-45.6); Hemoglobin 9.7 gm/dl (11.8-15.2)
[2020-05-04 00:47] LABS: Bilirubin,Urine NEG (Negative); Blood,Urine NEG (Negative); Color,Urine Yellow (Yellow); Mucus,Urine FEW /HPF; Urobilinogen,Urine < 2.0 mg/dL (<2.0); WBC,Urine < 1.0 /HPF (0.0-6.0)
[2020-05-04] MEDS: PANTOPRAZOLE 80 MG in SODIUM CHLORIDE 0.9% 100 ML IV SCH ×2 (00:57→21:08)
[2020-05-04] MEDS: SODIUM CHLORIDE 0.9% 1000 ML 1,000 ML IV SCH ×3 (00:57→17:05)
[2020-05-04] MEDS: MORPHINE 2 MG/1 ML INJ IV PRN ×5 (04:44→21:04)
[2020-05-04 06:09] LABS: Alanine Aminotransferase 9 units/L (7-56); Albumin 3.3 g/dL (3.9-5); Blood Urea Nitrogen 10 mg/dL (9-20); Calcium 8.6 mg/dL (8.4-10.2); Hemolysis Index 2
[2020-05-04 06:39] LABS: BUN/Creatinine Ratio 14
--- NOTE | 2020-05-04 08:37 | Gastroenterology Consultation ---
History of Present Illness - Reason for Consult Consult date: 05/04/20 Hematemesis Requesting physician: GAYATHRI SANDOVAL - History of Present Illness The patient is a 64 yo male admitted multiple times with N/V/hematemesis. He has documented severe (LA Grade D) erosive esophagitis by EGD 11/2019. He usually receives healthcare at the [facility] (by his report) and those records are not available. He reports he is currently under hospice care for his lung cancer He denies melena, reports no bowel movement overnight EGD 11/2019 1. Circumferential white ulceration in distal 5 cm of esophagus, biopsied. No stigmata of bleeding. 2. Otherwise normal esophagus. 3. Normal stomach, with small amount of old dark liquid blood, aspirated out. 4. Normal duodenum and bulb. Obtained/updated/reviewed patient's current medications - Past Medical History Previous Medical History?: Yes Hypertension: Yes Congestive Heart Failure: Yes Pulmonary Embolism: Yes Arthritis: Yes Additional medical history: Lung cancer, GI bleed, peptic ulcer disease. chemo tx every 21 days, Lung cx - Surgical History Past Surgical History?: Yes Additional Surgical History: Left Lung biopsy - Social History Smoking Status: Former Smoker Family history Htn Medications and Allergies Allergies Allergy/AdvReac Type Severity Reaction Status Date / Time etodolac Allergy Unknown Verified 04/06/20 22:51 ketorolac [From Toradol] Allergy Unknown Verified 04/06/20 22:51 lisinopril Allergy Unknown Verified 04/06/20 22:51 Penicillins Allergy Unknown Verified 12/22/19 05:13 Home Medications Medication Instructions Recorded Confirmed Last Taken Type Gabapentin [Neurontin] 600 mg PO BID 11/25/19 05/03/20 05/02/20 12:00 History Aspirin [Aspirin BABY CHEW TAB] 81 mg PO QDAY 04/06/20 05/03/20 05/02/20 12:00 History Isosorbide Mononitrate 30 mg PO DAILY 04/06/20 05/03/20 05/02/20 12:00 History Metoprolol Xl [Metoprolol 37.5 mg PO QDAY 04/06/20 05/03/20 05/02/20 12:00 History SUCCINATE ER TAB] Pantoprazole [Protonix] 40 mg PO QDAY 04/06/20 05/03/20 05/02/20 12:00 History HYDROmorphone [Dilaudid] 2 mg PO Q8HR #28 tablet 04/07/20 05/03/20 05/02/20 12:00 Rx LORazepam [Ativan] 1 mg PO QHS #30 tab 04/07/20 05/03/20 Unknown Rx Zolpidem [Ambien] 15 mg PO QHS 05/03/20 05/04/20 05/02/20 21:00 History Active Meds: Active Medications Acetaminophen (Tylenol) 650 mg PO Q4H PRN PRN Reason: Pain MILD(1-3)/Fever >100.5/CANALES Sodium Chloride (Nacl 0.9% 1000 Ml) 1,000 mls @ 100 mls/hr IV DIRECT KENNETH Last Admin: 05/04/20 00:57 Dose: 100 mls/hr Documented by: Pantoprazole Sodium 80 mg/ (Sodium Chloride) 100 mls @ 10 mls/hr IV DIRECT KENNETH Last Admin: 05/04/20 00:57 Dose: 8 mg/hr, 10 mls/hr Documented by: Metoclopramide HCl (Reglan) 10 mg IV Q6H PRN PRN Reason: Nausea And Vomiting Morphine Sulfate (Morphine) 2 mg IV Q4H PRN PRN Reason: Pain, Moderate (4-6) Last Admin: 05/04/20 04:44 Dose: 2 mg Documented by: Ondansetron HCl (Zofran) 4 mg IV Q8H PRN PRN Reason: Nausea And Vomiting Sodium Chloride (Sodium Chloride Flush Syringe 10 Ml) 10 ml IV BID KENNETH Sodium Chloride (Sodium Chloride Flush Syringe 10 Ml) 10 ml IV PRN PRN PRN Reason: LINE FLUSH Review of Systems - Review of Systems All systems: negative (10 Systems reviewed and negative except as mentioned above in the history of present illness) Exam - Constitutional Vital Signs: Temp Pulse Resp BP Pulse Ox 98.5 F 95 H 17 134/87 95 05/04/20 04:19 05/04/20 04:19 05/04/20 05:14 05/04/20 04:19 05/04/20 04:19 General appearance: no acute distress - EENT Eyes: EOM intact ENT: clear oral mucosa - Neck Neck: supple - Respiratory Respiratory effort: normal - Cardiovascular Rhythm: regular - Gastrointestinal General gastrointestinal: Present: soft - Integumentary Integumentary: Present: dry - Musculoskeletal Musculoskeletal: normal - Neurologic Neurological: alert and oriented x3 - Psychiatric Psychiatric: appropriate mood/affect - Labs CBC & Chem 7: 05/03/20 23:42 05/04/20 04:10 Lab Results: Laboratory Results - last 24 hr 05/03/20 05/03/20 05/03/20 15:49 15:49 15:49 WBC 5.2 RBC 3.54 L Hgb 10.1 L Hct 31.4 L MCV 89 MCH 29 MCHC 32 RDW 18.5 H Plt Count 405 Lymph % (Auto) 15.0 [place] % (Auto) 10.4 H Eos % (Auto) 0.5 Baso % (Auto) 0.5 Lymph # 0.8 L [place] # 0.5 Eos # 0.0 Baso # 0.0 Seg Neutrophils % 73.6 H Seg Neutrophils # 3.8 PT 13.9 INR 1.06 APTT 30.6 Sodium 141 Potassium 3.9 Chloride 99.5 Carbon Dioxide 28 Anion Gap 17 BUN 7 L Creatinine 0.6 L Estimated GFR > 60 BUN/Creatinine Ratio 12 Glucose 99 Hemoglobin A1c Lactic Acid Calcium 9.0 Total Bilirubin 0.20 Direct Bilirubin < 0.2 Indirect Bilirubin 0.0 AST 16 ALT 10 Alkaline Phosphatase 125 Total Protein 7.5 Albumin 3.5 L Albumin/Globulin Ratio 0.9 Urine Color Urine Turbidity Urine pH Ur Specific [place] Urine Protein Urine Glucose (UA) Urine Ketones Urine Blood Urine Nitrite Urine Bilirubin Urine Urobilinogen Ur Leukocyte Esterase Urine WBC (Auto) Urine RBC (Auto) Urine Mucus Blood Type Antibody Screen 05/03/20 05/03/20 05/03/20 15:49 15:50 23:42 WBC RBC Hgb Hct MCV MCH MCHC RDW Plt Count Lymph % (Auto) [place] % (Auto) Eos % (Auto) Baso % (Auto) Lymph # [place] # Eos # Baso # Seg Neutrophils % Seg Neutrophils # PT INR APTT Sodium Potassium Chloride Carbon Dioxide Anion Gap BUN Creatinine Estimated GFR BUN/Creatinine Ratio Glucose Hemoglobin A1c 4.9 Lactic Acid 1.00 Calcium Total Bilirubin Direct Bilirubin Indirect Bilirubin AST ALT Alkaline Phosphatase Total Protein Albumin Albumin/Globulin Ratio Urine Color Urine Turbidity Urine pH Ur Specific [place] Urine Protein Urine Glucose (UA) Urine Ketones Urine Blood Urine Nitrite Urine Bilirubin Urine Urobilinogen Ur Leukocyte Esterase Urine WBC (Auto) Urine RBC (Auto) Urine Mucus Blood Type O POSITIVE Antibody Screen Negative 05/03/20 05/03/20 05/04/20 23:42 Unknown 04:10 WBC RBC Hgb 9.7 L Hct 30.2 L MCV MCH MCHC RDW Plt Count Lymph % (Auto) [place] % (Auto) Eos % (Auto) Baso % (Auto) Lymph # [place] # Eos # Baso # Seg Neutrophils % Seg Neutrophils # PT INR APTT Sodium 143 Potassium 4.0 Chloride 101.2 Carbon Dioxide 28 Anion Gap 18 BUN 10 Creatinine 0.7 L Estimated GFR > 60 BUN/Creatinine Ratio 14 Glucose 101 H Hemoglobin A1c Lactic Acid Calcium 8.6 Total Bilirubin 0.20 Direct Bilirubin Indirect Bilirubin AST 15 ALT 9 Alkaline Phosphatase 116 Total Protein 6.5 Albumin 3.3 L Albumin/Globulin Ratio 1.0 Urine Color Yellow Urine Turbidity Clear Urine pH 9.0 H Ur Specific [place] 1.018 Urine Protein 30 mg/dl Urine Glucose (UA) Neg Urine Ketones Tr Urine Blood Neg Urine Nitrite Neg Urine Bilirubin Neg Urine Urobilinogen < 2.0 Ur Leukocyte Esterase Neg Urine WBC (Auto) < 1.0 Urine RBC (Auto) 5.0 Urine Mucus Few Blood Type Antibody Screen Assessment and Plan Patient does not appear to be having active GI bleed at this time Patient is currently on hospice for his lung cancer Patient did have recent EGD in November of this year which demonstrated esophagitis without any evidence of peptic ulcer disease, patient believes it that was his last upper endoscopy. Therefore, given that with severe esophagitis endoscopic therapy is most commonly unable to make a significant difference, patient not having significant overt GI bleeding, therefore recommend continue proton pump inhibitor may advance diet as tolerated and monitor clinically. If patient has significant overt GI bleeding then can pursue upper endoscopy however at this juncture it is unlikely that the benefits of an upper endoscopy will outweigh the risks given the patient's current medical status - Patient Problems (1) Alcohol dependence Current Visit: No Status: Acute (2) Anticoagulant long-term use Current Visit: No Status: Acute (3) Esophagitis Current Visit: No Status: Acute (4) Upper GI bleed Current Visit: Yes Status: Acute
[2020-05-04 10:32] LABS: Hematocrit 29.3 % (35.5-45.6); Hemoglobin 9.8 gm/dl (11.8-15.2)
--- NOTE | 2020-05-04 15:38 | Progress Note ---
Assessment and Plan - Patient Problems (1) Upper GI bleed Current Visit: Yes Status: Acute Plan to address problem: - IV Protonix drip for now - Serial H&H every 8 hours - Transfuse If hemoglobin drops below 7.5 - GI consulted - Per GI note: EGD 11/2019 1. Circumferential white ulceration in distal 5 cm of esophagus, biopsied. No stigmata of bleeding. 2. Otherwise normal esophagus. 3. Normal stomach, with small amount of old dark liquid blood, aspirated out. 4. Normal duodenum and bulb. - Advance diet as tolerated - If patient has significant overt GI bleeding then can pursue upper endoscopy however at this juncture it is unlikely that the benefits of an upper endoscopy will outweigh the risks given the patient's current medical status (2) Peptic ulcer disease Current Visit: Yes Status: Chronic Plan to address problem: - Protonix gtt for now, no changes per GI - May transition to PO once he is tolerating a diet (3) Lung cancer Current Visit: No Status: Chronic Plan to address problem: - Supportive care - Patient receives chemo every 21 days - Is on home hospice (4) Hypertension Current Visit: No Status: Chronic Qualifiers: Hypertension type: essential hypertension Qualified Code(s): I10 - Essential (primary) hypertension Plan to address problem: - Restarted home BB - BP monitoring per protocol (5) History of pulmonary embolism Current Visit: No Status: Chronic Plan to address problem: - Holding Lovenox in setting of GIB - Supplemental oxygenation as needed (6) CAD (coronary artery disease) Current Visit: No Status: Chronic Qualifiers: Coronary Disease-Associated Artery/Lesion type: [place] artery [place] vs. transplanted heart: [place] heart Plan to address problem: - Hold isosorbide for now (7) DVT prophylaxis Current Visit: No Status: Acute Plan to address problem: - SCDs to BLE while in bed - Hold chemical prophylaxis in setting of GIB History Interval history: The patient is a 64 yo male former smoker with CHF, HTN, DM, lung cancer stage IV, severe esophagitis, GI bleed, peptic ulcer disease and a pulmonary embolism currently taking Lovenox who presented to the emergency department on 05/03 hematemesis x3 days hematuria and hemoptysis. He is currently undergoing chemotherapy every 21 days for his lung cancer. GI was consulted and he was started on IV Protonix. This morning he complains of anxiety and request his home Ativan to be restarted. Home medications have been reconciled. Hospitalist Physical - Constitutional Vitals: Temp Pulse Resp BP Pulse Ox 98.7 F 96 H 20 142/91 95 05/04/20 10:51 05/04/20 10:51 05/04/20 10:51 05/04/20 10:51 05/04/20 10:51 General appearance: Present: no acute distress, well-nourished - EENT Eyes: Present: PERRL, EOM intact ENT: hearing intact - Neck Neck: Present: supple - Respiratory Respiratory effort: normal Respiratory: bilateral: diminished - Cardiovascular Rhythm: regular Heart Sounds: Present: S1 & S2. Absent: systolic murmur, diastolic murmur - Extremities Extremities: no ischemia, pulses intact, pulses symmetrical, No edema, normal temperature, normal color, Full ROM Peripheral Pulses: within normal limits - Abdominal General gastrointestinal: soft, non-tender, non-distended, normal bowel sounds - Integumentary Integumentary: Present: clear, warm - Psychiatric Psychiatric: cooperative, agitated - Neurologic Neurologic: CNII-XII intact, no focal deficits, moves all extremities - Allied Health Allied health notes reviewed: nursing Results - Labs CBC & Chem 7: 05/04/20 09:58 05/04/20 04:10 Labs: Laboratory Last Values WBC 5.2 K/mm3 (4.5-11.0) 05/03/20 15:49 RBC 3.54 M/mm3 (3.65-5.03) L 05/03/20 15:49 Hgb 9.8 gm/dl (11.8-15.2) L 05/04/20 09:58 Hct 29.3 % (35.5-45.6) L 05/04/20 09:58 MCV 89 fl (84-94) 05/03/20 15:49 MCH 29 pg (28-32) 05/03/20 15:49 MCHC 32 % (32-34) 05/03/20 15:49 RDW 18.5 % (13.2-15.2) H 05/03/20 15:49 Plt Count 405 K/mm3 (140-440) 05/03/20 15:49 Lymph % (Auto) 15.0 % (13.4-35.0) 05/03/20 15:49 [place] % (Auto) 10.4 % (0.0-7.3) H 05/03/20 15:49 Eos % (Auto) 0.5 % (0.0-4.3) 05/03/20 15:49 Baso % (Auto) 0.5 % (0.0-1.8) 05/03/20 15:49 Lymph # 0.8 K/mm3 (1.2-5.4) L 05/03/20 15:49 [place] # 0.5 K/mm3 (0.0-0.8) 05/03/20 15:49 Eos # 0.0 K/mm3 (0.0-0.4) 05/03/20 15:49 Baso # 0.0 K/mm3 (0.0-0.1) 05/03/20 15:49 Seg Neutrophils % 73.6 % (40.0-70.0) H 05/03/20 15:49 Seg Neutrophils # 3.8 K/mm3 (1.8-7.7) 05/03/20 15:49 PT 13.9 Sec. (12.2-14.9) 05/03/20 15:49 INR 1.06 (0.87-1.13) 05/03/20 15:49 APTT 30.6 Sec. (24.2-36.6) 05/03/20 15:49 Sodium 143 mmol/L (137-145) 05/04/20 04:10 Potassium 4.0 mmol/L (3.6-5.0) 05/04/20 04:10 Chloride 101.2 mmol/L (98-107) 05/04/20 04:10 Carbon Dioxide 28 mmol/L (22-30) 05/04/20 04:10 Anion Gap 18 mmol/L 05/04/20 04:10 BUN 10 mg/dL (9-20) 05/04/20 04:10 Creatinine 0.7 mg/dL (0.8-1.3) L 05/04/20 04:10 Estimated GFR > 60 ml/min 05/04/20 04:10 BUN/Creatinine Ratio 14 % 05/04/20 04:10 Glucose 101 mg/dL (75-100) H 05/04/20 04:10 Hemoglobin A1c 4.9 % (4-6) 05/03/20 23:42 Lactic Acid 1.00 mmol/L (0.7-2.0) 05/03/20 15:49 Calcium 8.6 mg/dL (8.4-10.2) 05/04/20 04:10 Total Bilirubin 0.20 mg/dL (0.1-1.2) 05/04/20 04:10 Direct Bilirubin < 0.2 mg/dL (0-0.2) 05/03/20 15:49 Indirect Bilirubin 0.0 mg/dL 05/03/20 15:49 AST 15 units/L (5-40) 05/04/20 04:10 ALT 9 units/L (7-56) 05/04/20 04:10 Alkaline Phosphatase 116 units/L (35-129) 05/04/20 04:10 Total Protein 6.5 g/dL (6.3-8.2) 05/04/20 04:10 Albumin 3.3 g/dL (3.9-5) L 05/04/20 04:10 Albumin/Globulin Ratio 1.0 % 05/04/20 04:10 Urine Color Yellow (Yellow) 05/03/20 Unknown Urine Turbidity Clear (Clear) 05/03/20 Unknown Urine pH 9.0 (5.0-7.0) H 05/03/20 Unknown Ur Specific [place] 1.018 (1.003-1.030) 05/03/20 Unknown Urine Protein 30 mg/dl mg/dL (Negative) 05/03/20 Unknown Urine Glucose (UA) Neg mg/dL (Negative) 05/03/20 Unknown Urine Ketones Tr mg/dL (Negative) 05/03/20 Unknown Urine Blood Neg (Negative) 05/03/20 Unknown Urine Nitrite Neg (Negative) 05/03/20 Unknown Urine Bilirubin Neg (Negative) 05/03/20 Unknown Urine Urobilinogen < 2.0 mg/dL (<2.0) 05/03/20 Unknown Ur Leukocyte Esterase Neg (Negative) 05/03/20 Unknown Urine WBC (Auto) < 1.0 /HPF (0.0-6.0) 05/03/20 Unknown Urine RBC (Auto) 5.0 /HPF (0.0-6.0) 05/03/20 Unknown Urine Mucus Few /HPF 05/03/20 Unknown Blood Type O POSITIVE 05/03/20 15:50 Antibody Screen Negative 05/03/20 15:50 Sandoval/IV: Voiding Method Urinal IV Catheter Type [Right INT / Saline Lock Antecubital] Active Medications - Current Medications Current Medications: Generic Name Dose Route Start Last Admin Trade Name Freq PRN Reason Stop Dose Admin Acetaminophen 650 mg 05/03/20 22:45 Tylenol PO Q4H PRN Pain MILD(1-3)/Fever >100.5/CANALES Gabapentin 600 mg 05/04/20 22:00 Gabapentin PO BID KENNETH Sodium Chloride 1,000 mls @ 100 mls/hr 05/03/20 22:45 05/04/20 09:02 Nacl 0.9% 1000 Ml IV 100 mls/hr DIRECT KENNETH Administration Pantoprazole Sodium 80 mg/ 100 mls @ 10 mls/hr 05/03/20 23:00 05/04/20 00:57 Sodium Chloride IV 8 mg/hr DIRECT KENNETH 10 mls/hr Administration 8 MG/HR Isosorbide Mononitrate 30 mg 05/05/20 10:00 Imdur PO DAILY KENNETH Lorazepam 1 mg 05/04/20 22:00 Ativan PO QHS KENNETH Metoclopramide HCl 10 mg 05/03/20 22:45 Reglan IV Q6H PRN Nausea And Vomiting Metoprolol Succinate 37.5 mg 05/05/20 10:00 Metoprolol Xl PO QDAY KENNETH Morphine Sulfate 2 mg 05/03/20 22:45 05/04/20 13:20 Morphine IV 2 mg Q4H PRN Administration Pain, Moderate (4-6) Ondansetron HCl 4 mg 05/03/20 22:45 Zofran IV Q8H PRN Nausea And Vomiting Sodium Chloride 10 ml 05/04/20 10:00 05/04/20 13:20 Sodium Chloride Flush Syringe 10 Ml IV 10 ml BID KENNETH Administration Sodium Chloride 10 ml 05/03/20 22:45 Sodium Chloride Flush Syringe 10 Ml IV PRN PRN LINE FLUSH
[2020-05-04] MEDS ORDERED: ZOLPIDEM 5 MG TAB PO ONE (21:35)
[2020-05-04] MEDS ORDERED: LORazepam 1 MG TAB PO SCH (22:00)
[2020-05-04] MEDS ORDERED: NON-FORMULARY EACH (Gabapentin [Neurontin] 600 MG) PO SCH (22:00)
[2020-05-04] MEDS ORDERED: GABAPENTIN 300 MG CAP PO SCH (22:00)
[2020-05-04 22:40] VITALS: BP 141/98
[2020-05-05] MEDS: MORPHINE 2 MG/1 ML INJ IV PRN (01:00)
[2020-05-05] MEDS ORDERED: NEOMY 3.5 MG/BACIT 400 UNITS/POLY B 5000 UNITS/GM OINT PACKET TP ONE (02:22)
[2020-05-05] MEDS ORDERED: NON-FORMULARY EACH (Isosorbide Mononitrate [Isosorbide Mononitrate] 30 MG) PO SCH (10:00)
[2020-05-05] MEDS ORDERED: METOPROLOL SUCCINATE XL 25 MG TAB PO SCH (10:00)
== END 2020-05-05 02:40 | disposition left against medical advice (07) ==
LOC: ED 14:39 → 3A 18:57
PROVIDERS: ADMIT Internal Medicine; ATTEND Internal Medicine
DX: K92.2 Gastrointestinal hemorrhage, unspecified (principal); K27.9 Peptic ulcer, site unspecified, unspecified as acute or chronic, without hemorrhage or perforation; I11.0 Hypertensive heart disease with heart failure; I50.9 Heart failure, unspecified; I25.10 Atherosclerotic heart disease of native coronary artery without angina pectoris; E11.9 Type 2 diabetes mellitus without complications; C34.90 Malignant neoplasm of unspecified part of unspecified bronchus or lung; M19.90 Unspecified osteoarthritis, unspecified site; Z86.711 Personal history of pulmonary embolism; Z87.891 Personal history of nicotine dependence; Z79.82 Long term (current) use of aspirin; Z79.899 Other long term (current) drug therapy; Z88.0 Allergy status to penicillin; Z88.6 Allergy status to analgesic agent; Z88.8 Allergy status to other drugs, medicaments and biological substances
CPT/HCPCS: 36415; 71045; 80048; 80053; 80076; 81001; 82140; 83036; 85014; 85018; 85025; 85610; 85730; 86850; 86900; 86901; 87116; 96361; 96365; 96366; 96375; 96376; 99291; A6250; C9113; G0378; J1642; J2270; J2405; J7030

== ENCOUNTER 2020-05-05 03:45 | Emergency (ER) | payer MEDICARE ==
[2020-05-05 03:55] VITALS: BP 147/82
== END 2020-05-05 04:35 | disposition left against medical advice (07) ==
LOC: ED 03:45
DX: R06.02 Shortness of breath (principal); Z53.21 Procedure and treatment not carried out due to patient leaving prior to being seen by health care provider

== ENCOUNTER 2020-06-02 13:10 | Emergency (ER) | payer MEDICARE ==
[2020-06-02] MEDS ORDERED: LORazepam 2 MG/ML VIAL IV ONE (13:44)
[2020-06-02] MEDS ORDERED: IPRATROPIUM/ALBUTEROL SULFATE 3 ML AMPUL.NEB IH ONE (13:44)
[2020-06-02] MEDS ORDERED: ONDANSETRON 4 MG/2 ML INJ IV ONE (13:44)
[2020-06-02] MEDS ORDERED: HYDROmorphone 1 MG/1 ML INJ IV ONE (13:44)
--- NOTE | 2020-06-02 15:16 | Emergency Department Report ---
ED Shortness of Breath HPI - General Chief Complaint: Dyspnea/Respdistress Stated Complaint: FLAVIO Time Seen by Provider: 06/02/20 13:39 Source: patient, EMS Mode of arrival: Stretcher Limitations: No Limitations - History of Present Illness Initial Comments: Chief complaint: "I just need medicine to help me breathw and to be less anxious.." HPI: This is a 65-year-old male with history of stage IV lung cancer on hospice, pulmonary embolism, coronary artery disease, ulcerative esophagitis, coronary artery disease who presents with shortness of breath rapid heartbeat. He is oxygen dependent. He denies pain. Denies headache. Denies fever. Denies abdominal pain. According to electronic medical record he is covered by [facility] hosp[facility] He receives [facility] at [facility]. Currently not receiving chemotherapy or radiation. MD Complaint: shortness of breath -: days(s) (1) Severity: mild Consistency: constant Improves With: nothing Worsens With: nothing Known History Of: COPD, other (Lung cancer, pulmonary embolism) Associated Symptoms: palpitations (Rapid heartbeat) - Related Data Home Medications Medication Instructions Recorded Confirmed Last Taken Gabapentin [Neurontin] 600 mg PO BID 11/25/19 05/03/20 05/02/20 12:00 Aspirin [Aspirin BABY CHEW TAB] 81 mg PO QDAY 04/06/20 05/03/20 05/02/20 12:00 Isosorbide Mononitrate 30 mg PO DAILY 04/06/20 05/03/20 05/02/20 12:00 Metoprolol Xl [Metoprolol 37.5 mg PO QDAY 04/06/20 05/03/20 05/02/20 12:00 SUCCINATE ER TAB] Pantoprazole [Protonix] 40 mg PO QDAY 04/06/20 05/03/20 05/02/20 12:00 Zolpidem [Ambien] 15 mg PO QHS 05/03/20 05/04/20 05/02/20 21:00 Previous Rx's Medication Instructions Recorded Last Taken Type HYDROmorphone [Dilaudid] 2 mg PO Q8HR #28 tablet 04/07/20 05/02/20 12:00 Rx LORazepam [Ativan] 1 mg PO QHS #30 tab 04/07/20 Unknown Rx Allergies Allergy/AdvReac Type Severity Reaction Status Date / Time etodolac Allergy Unknown Verified 04/06/20 22:51 ketorolac [From Toradol] Allergy Unknown Verified 04/06/20 22:51 lisinopril Allergy Unknown Verified 04/06/20 22:51 Penicillins Allergy Unknown Verified 12/22/19 05:13 ED Review of Systems ROS: Stated complaint: FLAVIO Other details as noted in HPI Comment: All other systems reviewed and negative Constitutional: denies: fever, malaise Respiratory: shortness of breath Cardiovascular: palpitations Gastrointestinal: denies: abdominal pain, nausea, vomiting ED Past Medical Hx - Past Medical History Previous Medical History?: Yes Hx Hypertension: Yes Hx Congestive Heart Failure: Yes Hx Diabetes: No Hx Pulmonary Embolism: Yes Hx Arthritis: Yes Hx Asthma: No Hx COPD: No Hx HIV: No Additional medical history: Lung cancer, GI bleed, peptic ulcer disease. chemo tx every 21 days, Lung cx - Surgical History Additional Surgical History: Left Lung biopsy - Social History Smoking Status: Former Smoker Substance Use Type: None - Medications Home Medications: Home Medications Medication Instructions Recorded Confirmed Last Taken Type Gabapentin [Neurontin] 600 mg PO BID 11/25/19 05/03/20 05/02/20 12:00 History Aspirin [Aspirin BABY CHEW TAB] 81 mg PO QDAY 04/06/20 05/03/20 05/02/20 12:00 History Isosorbide Mononitrate 30 mg PO DAILY 04/06/20 05/03/20 05/02/20 12:00 History Metoprolol Xl [Metoprolol 37.5 mg PO QDAY 04/06/20 05/03/20 05/02/20 12:00 History SUCCINATE ER TAB] Pantoprazole [Protonix] 40 mg PO QDAY 04/06/20 05/03/20 05/02/20 12:00 History HYDROmorphone [Dilaudid] 2 mg PO Q8HR #28 tablet 04/07/20 05/03/20 05/02/20 12:00 Rx LORazepam [Ativan] 1 mg PO QHS #30 tab 04/07/20 05/03/20 Unknown Rx Zolpidem [Ambien] 15 mg PO QHS 05/03/20 05/04/20 05/02/20 21:00 History ED Physical Exam - General Limitations: No Limitations General appearance: alert, in no apparent distress - Head Head exam: Present: atraumatic, normocephalic - Eye Eye exam: Present: normal appearance - ENT ENT exam: Present: mucous membranes moist - Neck Neck exam: Present: normal inspection, full ROM - Respiratory Respiratory exam: Present: normal lung sounds bilaterally. Absent: respiratory distress, wheezes, rales, stridor - Cardiovascular Cardiovascular Exam: Present: regular rate, normal rhythm, normal heart sounds. Absent: systolic murmur, diastolic murmur, rubs, gallop - GI/Abdominal GI/Abdominal exam: Present: soft, normal bowel sounds. Absent: distended, tenderness, guarding, rebound - Rectal Rectal exam: Present: deferred - Extremities Exam Extremities exam: Present: normal inspection - Neurological Exam Neurological exam: Present: alert, oriented X3 - Psychiatric Psychiatric exam: Present: normal affect, normal mood - Skin Skin exam: Present: warm, dry, intact, normal color. Absent: rash ED Course Vital Signs 06/02/20 06/02/20 06/02/20 13:41 13:43 13:45 Temperature 98.9 F Pulse Rate 103 H 106 H 103 H Respiratory 22 18 24 Rate Blood Pressure 126/88 Blood Pressure 143/77 [Right] O2 Sat by Pulse 99 99 98 Oximetry 06/02/20 06/02/20 06/02/20 13:53 14:00 14:15 Temperature Pulse Rate 101 H Respiratory 20 23 Rate Blood Pressure 128/83 138/84 Blood Pressure [Right] O2 Sat by Pulse 100 100 Oximetry 06/02/20 14:30 Temperature Pulse Rate Respiratory Rate Blood Pressure 128/80 Blood Pressure [Right] O2 Sat by Pulse 99 Oximetry ED Medical Decision Making - Medical Decision Making This is a 65-year-old male with history of stage IV lung cancer on hospice, pulmonary embolism who presents with shortness of breath rapid heartbeat. Patient appears well. He appeared comfortable. He was speaking full word sentences with ease. He received comfort with IV hydromorphone and IV lorazepam. He requested these medications for home. I encouraged him to call his hospice nurse for assistance. Oxygen saturation 99% on nasal cannula. Critical care attestation.: If time is entered above; I have spent that time in minutes in the direct care of this critically ill patient, excluding procedure time. ED Disposition Clinical Impression: Lung cancer, Dyspnea Disposition: DC-01 TO HOME OR SELFCARE Is pt being admited?: No Does the pt Need Aspirin: No Condition: Stable Additional Instructions: Please call your hospice nurse for additional medication.
[2020-06-02] MEDS ORDERED: LORazepam 1 MG TAB PO ONE (19:14)
[2020-06-02] MEDS ORDERED: oxyCODONE /ACETAMINOPHEN 5-325MG TAB PO ONE (19:14)
[2020-06-02 21:34] VITALS: BP 120/90
== END 2020-06-02 21:30 | disposition home or self-care (01) ==
LOC: ED 13:10
DX: C34.90 Malignant neoplasm of unspecified part of unspecified bronchus or lung (principal); R06.00 Dyspnea, unspecified; I11.0 Hypertensive heart disease with heart failure; I50.9 Heart failure, unspecified; M19.90 Unspecified osteoarthritis, unspecified site; I25.10 Atherosclerotic heart disease of native coronary artery without angina pectoris; Z98.890 Other specified postprocedural states; Z79.899 Other long term (current) drug therapy; Z88.0 Allergy status to penicillin; Z88.8 Allergy status to other drugs, medicaments and biological substances; Z87.891 Personal history of nicotine dependence
CPT/HCPCS: 94640; 96374; 96375; 99284; J1170; J1642; J2060; J2405; 94644